=== PATIENT | female | born 1945 | race Caucasian/White ===

== ENCOUNTER 2017-06-11 08:13 | Emergency (ER) | payer OTHER, MEDICARE ==
[2017-06-11 08:24] VITALS: BMI 30.1
--- NOTE | 2017-06-11 08:54 | PDOC ---
History of Present Illness - General Chief Complaint: Injury Stated Complaint: FALL Time Seen by Provider: 06/11/17 08:32 History Source: Patient Exam Limitations: No Limitations - History of Present Illness Initial Comments: 06/11/17 08:49 The patient is a 72 year old female, with a significant past medical history of HTN, DM, and CAD s/p cardiac stent on plavix, who presents to the emergency department s/p Fall. Patient states she was walking in the dark and was not paying attention when she tripped over a box on her floor. Patient states she hit her head and fell on her right side. The patient denies headache, slurred speech, blurry vision, chest pain, shortness of breath, and dizziness. Denies fever, chills, nausea, vomit, diarrhea and constipation. Denies dysuria, frequency, urgency and hematuria. Denies any current pain Allergies: Anaesthetics Past surgical history: Left TKR, CAD stent placement Social history: Former smoker 20 years PMD - Dr. Hansen Past History - Past Medical History Allergies/Adverse Reactions: Allergies Allergy/AdvReac Type Severity Reaction Status Date / Time Anesthetics - Roxanna Type- Allergy Verified 06/11/17 08:18 Parabens No Known Drug Allergies Allergy Verified 06/11/17 08:16 Home Medications: Ambulatory Orders Aspirin Coated [Ecotrin -] 81 mg PO DAILY 03/24/14 Calcium 500 mg PO DAILY 03/24/14 Clopidogrel Bisulfate [Plavix -] 75 mg PO DAILY 03/24/14 Cranberry Extract [Cranberry] 200 mg PO DAILY 03/24/14 Ferrous Sulfate [Feosol] 325 mg PO BID 03/24/14 Folic Acid/Multivit-Min/Lutein [Centrum Silver Chewable Tablet] 1 each PO DAILY 03/24/14 Metoprolol Tartrate [Lopressor -] 25 mg PO BID 03/24/14 [place]-3 Fatty Acids [[place]-3] 1,000 mg PO DAILY 03/24/14 Pravastatin Sodium 20 mg PO HS 03/24/14 Vitamin E Mixed [Vitamin E] 1,000 unit PO DAILY 03/24/14 Lansoprazole [Prevacid -] 20 mg PO DAILY 08/30/14 Sitagliptin Phos/Metformin HCl [Janumet 50-500 mg Tablet] 1 tab PO BID 08/30/14 Cholecalciferol (Vitamin D3) [Vitamin D3] 1,000 unit PO DAILY 10/10/15 Cyanocobalamin [Vitamin B12 -] 1,000 mcg PO DAILY 10/10/15 Glucosamine HCl/Chondr Solano A Na [Osteo Bi-Flex Caplet] 1 each PO DAILY 10/10/15 Timolol 0.5% [Timoptic 0.5%] 1 drop OU BID 02/14/16 Olmesartan Medoxomil [Benicar -] 40 mg PO DAILY #30 tablet 02/25/16 Sodium Chloride Tablet - 1 gm PO BID tablet 02/25/16 Anemia: Yes Asthma: No Cancer: No Cardiac Disorders: Yes (CAD) CVA: No COPD: No CHF: No Dementia: No Diabetes: Yes GI Disorders: Yes (ACID REFLUX) Disorders: No HTN: Yes Hypercholesterolemia: No Liver Disease: No Seizures: No Thyroid Disease: No - Surgical History Abdominal Surgery: No Appendectomy: No Cardiac Surgery: Yes (stent x1) Cholecystectomy: No Lung Surgery: No Neurologic Surgery: No Orthopedic Surgery: Yes (L KNEE ARTHROSCOPY,L KNEE REPLAC.,BILAT. RTC REPAIR) - Immunization History Immunization Up to Date: Yes - Suicide/Smoking/Psychosocial Hx Smoking History: Former smoker Have you smoked in the past 12 months: No If you are a former smoker, when did you quit?: 1993 Information on smoking cessation initiated: No Hx Alcohol Use: No Drug/Substance Use Hx: No Substance Use Type: None Hx Substance Use Treatment: No Review of Systems - Review of Systems Able to Perform ROS?: Yes Comments:: 06/11/17 08:49 GENERAL/CONSTITUTIONAL: No fever or chills. No weakness. HEAD, EYES, EARS, NOSE AND THROAT: No change in vision. No ear pain or discharge. No sore throat. CARDIOVASCULAR: No chest pain or shortness of breath RESPIRATORY: No cough, wheezing, or hemoptysis. GASTROINTESTINAL: No nausea, vomiting, diarrhea or constipation. GENITOURINARY: No dysuria, frequency, or change in urination. MUSCULOSKELETAL: No joint or muscle swelling or pain. No neck or back pain. SKIN: No rash NEUROLOGIC: No headache, vertigo, loss of consciousness, or change in strength/ sensation. ENDOCRINE: No increased thirst. No abnormal weight change HEMATOLOGIC/LYMPHATIC: No anemia, easy bleeding, or history of blood clots. ALLERGIC/IMMUNOLOGIC: No hives or skin allergy. *Physical Exam - Vital Signs Last Vital Signs Temp Pulse Resp BP Pulse Ox 98.2 F 79 15 118/81 99 06/11/17 08:19 06/11/17 08:19 06/11/17 08:19 06/11/17 08:19 06/11/17 08:19 - Physical Exam Comments: 06/11/17 08:49 GENERAL: Awake, alert, and fully oriented, in no acute distress HEAD: No signs of trauma, normocephalic, atraumatic EYES: PERRLA, EOMI, sclera anicteric, conjunctiva clear ENT: Auricles normal inspection, hearing grossly normal, nares patent, oropharynx clear without exudates. Moist mucosa NECK: Normal ROM, supple, no lymphadenopathy, JVD, or masses LUNGS: No distress, speaks full sentences, clear to auscultation bilaterally HEART: Regular rate and rhythm, normal S1 and S2, no murmurs, rubs or gallops, peripheral pulses normal and equal bilaterally. ABDOMEN: Soft, nontender, normoactive bowel sounds. No guarding, no rebound. No masses EXTREMITIES: Normal inspection, Normal range of motion, no edema. No clubbing or cyanosis. NEUROLOGICAL: Cranial nerves II through XII grossly intact. Normal speech, 5/5 strength, senstaion intact bilaterally, no focal sensorimotor deficits SKIN: Warm, Dry, normal turgor, no rashes or lesions noted. Medical Decision Making - Medical Decision Making 06/11/17 08:54 72 year old F with pmh of HTN, DM, and CAD s/p stent placement on plavix presented s/p fall. Given hx/pe, will order Head CT 06/11/17 09:[address] negative for any intracranial pathology. Patient stable for d/c *DC/Admit/Observation/Transfer Diagnosis at time of Disposition: Fall Qualifiers: Encounter type: initial encounter Qualified Code(s): W19.XXXA - Unspecified fall, initial encounter; W19.XXXA - Unspecified fall, initial encounter - Discharge Dispostion Disposition: HOME Condition at time of disposition: Stable - Patient Instructions Additional Instructions: Follow up with your primary care provider within 1 week. If you have worsening headache, slurred speech, blurred vision, chest pain, shortness of breath, or any new/worsening symptoms please come back to the hospital immediately.
--- NOTE | 2017-06-11 09:30 | PDOC ---
Attending Attestation - Resident Resident Name: Jesus Ellis - ED Attending Attestation I have performed the following: I have examined & evaluated the patient, The case was reviewed & discussed with the resident, I agree w/resident's findings & plan, Exceptions are as noted - HPI HPI: 06/11/17 09:34 72y F hx of HTN, DM, and CAD s/p cardiac stent on plavix presents s/p mechanical fall after tripping over a box, falling on her right side but htting her head on the ground w/o any headache, blurry vision, neck pain, n/v, dizziness. No syncope prodromes. pt denies any current pain - Physicial Exam PE: 06/11/17 09:35 GENERAL: The patient is awake, alert, and fully oriented, Nontoxic - in no acute distress. HEAD: Normocephalic, atraumatic. EYES: extraocular movements intact, sclera anicteric, conjunctiva clear. NECK: Normal range of motion, supple LUNGS: Breath sounds equal, clear to auscultation bilaterally. No wheezes, no rhonchi, no rales. HEART: Regular rate and rhythm, normal S1 and S2 without murmur, rub or gallop. ABDOMEN: Soft, nontender, normoactive bowel sounds. No guarding, no rebound. No CVA tenderness EXTREMITIES: Normal range of motion, no edema. No clubbing or cyanosis. No cords, erythema, or tenderness. NEUROLOGICAL: No facial assymetry, Normal speech, moving all 4 extermities spontaneously and symmetrically Back: No midline tenderness to the cervical, thoracic or lumbar spine Musculoskelatal: FROM of b/l shoulders, elbows, wrist. FROM of hips, knees, ankles - No signs of ecchymosis, erythema, or crepitus noted on palpation extremities, chest wall, clavicals, ribs, back. - Medical Decision Making 06/11/17 10:03 s/p mechanical fall. no focal injureis, limitations in ROM, loc, prodrome of syncope CT obtained due to being on plavix - neg for any pathology tylenol for pain will dc with pmd fu return precautions were discussed I discussed the physical exam findings, ancillary test results and final diagnoses with the patient. I answered all of the patient's questions. The patient was satisfied with the care received and felt comfortable with the discharge plan and treatment plan. The patient will call their primary care physician within 24 hours to arrange follow-up and will return to the Emergency Department with any new, persistent or worsening symptoms.
[2017-06-11] MEDS ORDERED: ACETAMINOPHEN 325 MG TABLET (FP) PO ONE (10:00)
[2017-06-11] MEDS ORDERED: ACETAMINOPHEN 325 MG TABLET (FP) ONE (10:05)
[2017-06-11 10:16] VITALS: BP 135/75; PULSE 71; TEMP 98.1
== END 2017-06-11 10:18 | disposition home or self-care (01) ==
LOC: JER 08:13
DX: Z91.81 History of falling (principal); I10 Essential (primary) hypertension; I25.10 Atherosclerotic heart disease of native coronary artery without angina pectoris; E11.9 Type 2 diabetes mellitus without complications; Z95.5 Presence of coronary angioplasty implant and graft; Z79.01 Long term (current) use of anticoagulants; Z88.4 Allergy status to anesthetic agent; Z79.82 Long term (current) use of aspirin; Z79.84 Long term (current) use of oral hypoglycemic drugs; D64.9 Anemia, unspecified; K21.9 Gastro-esophageal reflux disease without esophagitis; Z96.653 Presence of artificial knee joint, bilateral; W01.10XA Fall on same level from slipping, tripping and stumbling with subsequent striking against unspecified object, initial encounter; Y93.01 Activity, walking, marching and hiking; Y92.009 Unspecified place in unspecified non-institutional (private) residence as the place of occurrence of the external cause
CPT/HCPCS: 70450-TC; 99282-25

== ENCOUNTER 2017-11-08 19:07 | Emergency (ER) | payer OTHER, MEDICARE ==
[2017-11-08 19:34] VITALS: BP 145/79; PULSE 78; TEMP 98.2; BMI 29.9
--- NOTE | 2017-11-08 20:51 | PDOC ---
History of Present Illness - General Chief Complaint: Headache Stated Complaint: HEADACHE Time Seen by Provider: 11/08/17 20:18 - History of Present Illness Initial Comments: 11/08/17 20:42 72 yo F with h/o HTN, NIDDM, CAD s/p stent placement x 1, on plavix who presents with left sided posterior headache. Patient reports intermittent, pulsating left sided parietal occipital headache over the past 3-5 days. WHITTINGTON lasting for hours then resolving randomly throughout day. Denies identifiable triggers or alleviators. Denies head trauma. Denies aura, photophobia, phonophobia, scintillating sctotomas. WHITTINGTON not improved with Tylenol. Reports left sided aural fullness x 1 week, with no drainage, tinnitus, hearing loss, facial sensory loss. Daughter at bedside reports h/o falls from bed with previous closed head injuries. Pt. does not recall falling from bed. Denies lightheadedness, vertigo, weakness, sensory disturbance, facial droop, slurred speech. Denies CP, SOB, N/V, F/C, abdominal pain, urinary complaints, diarrhea, constipation. Denies h/o TIA/CVA. Past History - Past Medical History Allergies/Adverse Reactions: Allergies Allergy/AdvReac Type Severity Reaction Status Date / Time Anesthetics - Roxanna Type- Allergy Verified 11/08/17 19:28 Parabens No Known Drug Allergies Allergy Verified 11/08/17 19:28 Home Medications: Ambulatory Orders Aspirin Coated [Ecotrin -] 81 mg PO DAILY 03/24/14 Calcium 500 mg PO DAILY 03/24/14 Clopidogrel Bisulfate [Plavix -] 75 mg PO DAILY 03/24/14 Cranberry Extract [Cranberry] 200 mg PO DAILY 03/24/14 Ferrous Sulfate [Feosol] 325 mg PO BID 03/24/14 Folic Acid/Multivit-Min/Lutein [Centrum Silver Chewable Tablet] 1 each PO DAILY 03/24/14 Metoprolol Tartrate [Lopressor -] 25 mg PO BID 03/24/14 [place]-3 Fatty Acids [[place]-3] 1,000 mg PO DAILY 03/24/14 Pravastatin Sodium 20 mg PO HS 03/24/14 Vitamin E Mixed [Vitamin E] 1,000 unit PO DAILY 03/24/14 Lansoprazole [Prevacid -] 20 mg PO DAILY 08/30/14 Sitagliptin Phos/Metformin HCl [Janumet 50-500 mg Tablet] 1 tab PO BID 08/30/14 Cholecalciferol (Vitamin D3) [Vitamin D3] 1,000 unit PO DAILY 10/10/15 Cyanocobalamin [Vitamin B12 -] 1,000 mcg PO DAILY 10/10/15 Glucosamine/Chondr Solano A Sod [Osteo Bi-Flex Caplet] 1 each PO DAILY 10/10/15 Timolol 0.5% [Timoptic 0.5%] 1 drop OU BID 02/14/16 Olmesartan Medoxomil [Benicar -] 40 mg PO DAILY #30 tablet 02/25/16 Sodium Chloride Tablet - 1 gm PO BID tablet 02/25/16 Anemia: Yes Asthma: No Cancer: No Cardiac Disorders: Yes (CAD) CVA: No COPD: No CHF: No Dementia: No Diabetes: Yes GI Disorders: Yes (ACID REFLUX) Disorders: No HTN: Yes Hypercholesterolemia: No Liver Disease: No Seizures: No Thyroid Disease: No - Surgical History Abdominal Surgery: No Appendectomy: No Cardiac Surgery: Yes (stent x1) Cholecystectomy: No Lung Surgery: No Neurologic Surgery: No Orthopedic Surgery: Yes (L KNEE ARTHROSCOPY,L KNEE REPLAC.,BILAT. RTC REPAIR) - Immunization History Immunization Up to Date: Yes - Suicide/Smoking/Psychosocial Hx Smoking History: Never smoked Have you smoked in the past 12 months: No If you are a former smoker, when did you quit?: 1993 Information on smoking cessation initiated: No Hx Alcohol Use: No Drug/Substance Use Hx: No Substance Use Type: None Hx Substance Use Treatment: No Review of Systems - Review of Systems Comments:: 11/08/17 20:40 GENERAL/CONSTITUTIONAL: No fever or chills. No weakness. HEAD, EYES, EARS, NOSE AND THROAT: + Ear pain. No change in vision. No discharge. No sore throat.- CARDIOVASCULAR: No chest pain or shortness of breath RESPIRATORY: No cough, wheezing, or hemoptysis. GASTROINTESTINAL: No nausea, vomiting, diarrhea or constipation. GENITOURINARY: No dysuria, frequency, or change in urination. MUSCULOSKELETAL: No joint or muscle swelling or pain. No neck or back pain. SKIN: No rash NEUROLOGIC: + headache. No vertigo, loss of consciousness, or change in strength /sensation. ENDOCRINE: No increased thirst. No abnormal weight change HEMATOLOGIC/LYMPHATIC: No anemia, easy bleeding, or history of blood clots. ALLERGIC/IMMUNOLOGIC: No hives or skin allergy. *Physical Exam - Vital Signs Last Vital Signs Temp Pulse Resp BP Pulse Ox 98.2 F 78 18 145/79 99 11/08/17 19:30 11/08/17 19:30 11/08/17 19:30 11/08/17 19:30 11/08/17 19:30 - Physical Exam Comments: 11/08/17 20:40 GENERAL: Awake, alert, and fully oriented, in no acute distress HEAD: Left sided parietal occipital pain slighlty reproducible /ttp. No signs of trauma, normocephalic, atraumatic EYES: PERRLA, EOMI, sclera anicteric, conjunctiva clear ENT: Auricles normal inspection, hearing grossly normal, nares patent, oropharynx clear without exudates. Moist mucosa NECK: Normal ROM, supple, no lymphadenopathy, JVD, or masses LUNGS: No distress, speaks full sentences, clear to auscultation bilaterally HEART: Regular rate and rhythm, normal S1 and S2, no murmurs, rubs or gallops, peripheral pulses normal and equal bilaterally. EXTREMITIES : Normal inspection, Normal range of motion, no edema. No clubbing or cyanosis. NEUROLOGICAL: Cranial nerves II through XII grossly intact. Normal speech, normal gait, no focal sensorimotor deficits. Nml NEDA, HTS, and absent dsymetria on FTN. SKIN: Warm, Dry, normal turgor, no rashes or lesions noted Medical Decision Making - Medical Decision Making 11/08/17 21:23 72 yo F with h/o HTN, NIDDM, CAD s/p stent placement x 1, on plavix who presents with lintermittent, pulsating left sided parietal occipital headache over the past 3-5 days. WHITTINGTON lasting for hours then resolving randomly throughout day. Denies identifiable triggers or alleviators. Denies head trauma, neck, or back pain. Denies aura, photophobia, phonophobia, scintillating sctotomas. WHITTINGTON not improved with Tylenol. Reports left sided aural fullness x 1 week, with no drainage, tinnitus, hearing loss, facial sensory loss. Daughter at bedside reports h/o falls from bed with previous closed head injuries. Pt. does not recall falling from bed. Denies lightheadedness, vertigo, weakness, sensory disturbance, facial droop, slurred speech. Denies CP, SOB, N/V, F/C, abdominal pain, urinary complaints, diarrhea, constipation. Denies h/o TIA/CVA. HDS. Physical exam with reproducible left sided pareito-occipital ttp, with no bony abnormality or overlying skin change. Absent mastoid ttp. Although low suspicion based on absent neuro deficit will consider head imaging in elderly F on Plavix, with h/o falls, and possible focal head injury. Nexus criteria low risk C-spine injury. Will also consider malignancy for new onset WHITTINGTON over age 50. DDx: Migraine w/out aura, tension WHITT[place], Skull frx ED Course: CT HEAD NON CON 11/08/17 23:33 CT HEAD NON CON: NO acute fracture or hemorrhage. Unremarkable Pt. stable at bedside and advised to f/u with PMD, and neurology. 11/08/17 23:35 *DC/Admit/Observation/Transfer Diagnosis at time of Disposition: New onset of headaches after age 50 - Discharge Dispostion Condition at time of disposition: Stable Admit: No - Referrals Referrals: Bobby Hansen MD [Primary Care Provider] - Teddy Yates MD [Staff Physician] - - Patient Instructions Printed Discharge Instructions: DI for Migraine, DI for Headache Additional Instructions: Please return to the emergency department with any new or worsening symptoms or concerns. Please follow up with your primary care physician within 72 hours. - Post Discharge Activity - Attestations Physician Attestion: 11/08/17 20:41 I attest to the information provided in this note.
--- NOTE | 2017-11-08 23:48 | PDOC ---
Attending Attestation - Resident Resident Name: Curtis Chandler - ED Attending Attestation I have performed the following: I have examined & evaluated the patient, The case was reviewed & discussed with the resident, I agree w/resident's findings & plan, Exceptions are as noted - HPI HPI: 11/08/17 23:46 72 yo female who presents with parietal headache. she denies falling but her family states she falls often and is on plavix and they are concerned maybe she doesnt remember recent trauma -pt is alert and has no acute neuro changes - Physicial Exam PE: 11/08/17 23:59 Well-nourished well-developed alert and conversant 72-year-old female who presented with a left posterior headache. -she cannot take NSAIDs because she's been told that she should not since she is taking Plavix. -the only medicine she took this headache was Tylenol 500 mg Patient does not have any new focal neural deficits, no slurred speech, no visual changes, no nausea or vomiting 11/09/17 00:01 Head normocephalic/atraumatic. eyes julio eomi neck supple,no jvd lungs cta b/l abd nontender ext no e/c/c skin no petchia,no rashes neuro axox3,ambulatory,motor strength 5/5 bilaterally - Medical Decision Making 11/09/17 00:28 ct scan head was NEGATIVE for any acute intracranial pathology IMP headache no evidence of stroke or trauma
== END 2017-11-09 00:31 | disposition home or self-care (01) ==
LOC: JER 19:07
DX: R51 Headache (principal); I25.10 Atherosclerotic heart disease of native coronary artery without angina pectoris; I10 Essential (primary) hypertension; Z95.5 Presence of coronary angioplasty implant and graft; E11.9 Type 2 diabetes mellitus without complications; Z79.84 Long term (current) use of oral hypoglycemic drugs; Z91.81 History of falling
CPT/HCPCS: 70450-TC; 99281-25

== ENCOUNTER 2017-12-31 06:04 | Day surgery (SDC) | payer OTHER, MEDICARE ==
[2017-12-30 11:58] VITALS: BMI 30.2
[2017-12-31 06:43] LABS: URINE APPEARANCE CLEAR; URINE BILIRUBIN NEGATIVE (<2.0 mg/dL); URINE COLOR LTYELLOW; URINE GLUCOSE (UA) NEGATIVE (NEGATIVE); URINE KETONE NEGATIVE (NEGATIVE); URINE NITRITE NEGATIVE (NEGATIVE); URINE PROTEIN NEGATIVE (NEGATIVE); URINE UROBILINOGEN NEGATIVE mg/dL (0.2-1.0)
[2017-12-31 07:11] LABS: URINE LEUK ESTERASE 1+ (NEGATIVE)
[2017-12-31 07:24] LABS: EPI CELLS RARE /HPF (FEW)
--- NOTE | 2017-12-31 08:01 | HP ---
[facility] - Chief Complaint Chief Complaint: left shoulder pain - Past Medical History Allergies/Adverse Reactions: Allergies Allergy/AdvReac Type Severity Reaction Status Date / Time Anesthetics - Roxanna Type- Allergy Verified 12/31/17 06:51 Parabens No Known Drug Allergies Allergy Verified 12/31/17 06:51 Cardiovascular: Yes: CAD, CHF, HTN, Hyperlipdemia Gastrointestinal: Yes: Gastritis Musculoskeletal: Yes: Chronic low back pain - Current Medications Current Medications: Home Medications Medication Instructions Recorded Aspirin Coated [Ecotrin -] 81 mg PO DAILY 03/24/14 Calcium 500 mg PO DAILY 03/24/14 Clopidogrel Bisulfate [Plavix -] 75 mg PO DAILY 03/24/14 Cranberry Extract [Cranberry] 200 mg PO DAILY 03/24/14 Ferrous Sulfate [Feosol] 325 mg PO BID 03/24/14 Folic Acid/Multivit-Min/Lutein 1 each PO DAILY 03/24/14 [Centrum Silver Chewable Tablet] Metoprolol Tartrate [Lopressor -] 25 mg PO BID 03/24/14 Leon-3 Fatty Acids [Leon-3] 1,000 mg PO DAILY 03/24/14 Pravastatin Sodium 20 mg PO HS 03/24/14 Vitamin E Mixed [Vitamin E] 1,000 unit PO DAILY 03/24/14 Sitagliptin Phos/Metformin HCl 1 tab PO BID 08/30/14 [Janumet 50-500 mg Tablet] Cholecalciferol (Vitamin D3) 1,000 unit PO DAILY 10/10/15 [Vitamin D3] Cyanocobalamin [Vitamin B12 -] 1,000 mcg PO DAILY 10/10/15 Glucosamine/Chondr Solano A Sod [Osteo 1 each PO DAILY 10/10/15 Bi-Flex Caplet] Timolol 0.5% [Timoptic 0.5%] 1 drop OU BID 02/14/16 Olmesartan Medoxomil [Benicar -] 40 mg PO DAILY #30 tablet 02/25/16 Dexlansoprazole [Dexilant -] 1 tab PO DAILY 12/30/17 Fenofibrate Nanocrystallized 160 mg PO DAILY 12/30/17 [Triglide] Satellite Physical Exam - Physical Examination Vital Signs: Vital Signs Period Temp Pulse Resp BP Sys/Song Pulse Ox Last 24 Hr 98.3 F 65 18 112/66 95 General Appearance: Well Nourished, Well Developed, Alert & Oriented x3 ENT: Clear Lung: Normal air movement Heart: Regular rate & rhythm Extremities: Other (left shoulder- + ttp, decr rom, + neer, + baires, 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
[2017-12-31] MEDS ORDERED: DEXAMETHASONE SOD PHOSPHATE/PF 10 MG/ML SDV ONE (08:22)
[2017-12-31] MEDS ORDERED: ROPIVACAINE HCL 0.5% 30ML VIAL ONE (08:22)
[2017-12-31] MEDS ORDERED: MIDAZOLAM HCL 2 MG/2 ML SINGLE DOSE VIAL ONE ×2 (08:24)
[2017-12-31] MEDS ORDERED: PROPOFOL 20 ML ONE (08:43)
[2017-12-31] MEDS ORDERED: ROCURONIUM BROMIDE 50 MG/5 ML VIAL ONE (08:43)
[2017-12-31] MEDS ORDERED: LIDOCAINE HCL/PF 2% SDV 5ML VIAL ONE (08:43)
[2017-12-31] MEDS ORDERED: ceFAZolin SODIUM 1 GM VIAL IVPB ONE (08:55)
[2017-12-31] MEDS ORDERED: ceFAZolin SODIUM 1 GM VIAL ONE (08:55)
[2017-12-31] MEDS ORDERED: ePHEDrine SULFATE 50 MG/1 ML AMPULE ONE (08:59)
[2017-12-31] MEDS ORDERED: DEXAMETHASONE SOD PHOSPHATE 4 MG/1 ML VIAL ONE ×2 (09:00→10:22)
--- NOTE | 2017-12-31 10:35 | OP ---
Operative Note - Note: Operative Date: 12/31/17 ([facility]) Pre-Operative Diagnosis: left shoulder impingement, failed RCR Operation: left shoulder arthroscopy, removal of hardware (screw), SAD, open RCR Implants: 1 arthrex swivelock Post-Operative Diagnosis: Same as Pre-op Surgeon: Brijesh Husain Chief Radiology: Medhat Pitts Anesthesiologist/TRAFFIC MONITOR SPECIALIST: Donn Marquis Anesthesia: General, Local Specimens Removed: shavings, screw Estimated Blood Loss (mls): 10 Operative Report Dictated: Yes
--- NOTE | 2017-12-31 11:28 | OP ---
DATE OF OPERATION: 12/31/2017 PREOPERATIVE DIAGNOSIS: Left shoulder failed hardware and recurrent rotator cuff tear. POSTOPERATIVE DIAGNOSIS: Left shoulder failed hardware and recurrent rotator cuff tear. PROCEDURE: Left shoulder arthroscopy, subacromial decompression, removal of hardware, and open rotator cuff repair. SURGEON: Harish Muhammad MD CONSULTING NURSE: BELA Fischer ANESTHESIOLOGIST: Donn Marquis MD ANESTHESIA: Left interscalene block and LMA anesthesia. DRAINS: None. COMPLICATIONS: None. BLOOD LOSS: 75 mL. BLOOD GIVEN: None. FLUID REPLACEMENT: Plamylyte, 1000 mL. DESCRIPTION OF PROCEDURE: The patient is a 72-year-old female with a preoperative diagnosis of left shoulder pain, arthritis, and rotator cuff tear, previous surgery for decompression of rotator cuff repair, and failed hardware/rotator cuff fixation screw. After extensive preoperative discussions about the potential risks, complications, alternatives, benefits of surgery versus nonsurgical treatment, the patient elected to undergo this procedure. She understands that she will have continued pain because of the osteoarthritis. She may need a total shoulder replacement at some point as rotator cuff quality may be poor and the tear may be unrepairable. The patient was brought to the operating room, peripheral IV placed, and IV sedation given. One gram of IV Ancef was given. Left interscalene block was performed. LMA anesthesia was induced. The left upper extremity was prepped and draped in sterile fashion. The bony landmarks were marked out with a marking pen. Posterior portal was established. A diagnostic glenohumeral arthroscopy was performed. Immediately it was apparent the patient had grade 4 osteoarthritis of both the humeral head and the glenoid. The labrum was degenerated. It was clearly a full-thickness rotator cuff tear. There was a metallic screw, a previous rotator cuff repair screw, that pulled out of the humeral head. There was a lot of synovitis. An anterior portal was established. Shaver introduced into the joint. A lot of soft tissue and cartilaginous debris was removed as well as a partial synovectomy. The area was cauterized for hemostasis. This revealed a very arthritic glenohumeral joint, a relatively small recurrent rotator cuff tear, perhaps the size of a quarter, and this loose screw. Under direct visualization, we grabbed the screw, pulled it out through the lateral portal, passed it off the field as specimen, hardware removal. The joint was cleaned up as much as possible. Our attention was then turned to the subacromial space. The patient had a moderate-sized recurrent bony subacromial spur. This was taken down with a 5.5-mm oval kiersten, fine-tuned in reverse, and then, with the shaver to remove bony and soft tissue debris. Decompression looked quite good and flat at the end. There was much more room for the rotator cuff. The patient had scar tissue and bursitis, which was removed after an extensive soft tissue bursectomy debridement with the ArthroCare Wand and straight shaver. This revealed the hole where the previous metallic screw was, and the rotator cuff tear. The area was cauterized, a bit cleaned up. Additional lateral subdeltoid bursectomy performed. Under direct visualization, using the Emotiveion Needle Passer, we put in 2 FiberWire sutures through the rotator cuff tear. I was not completely sure that I had a full understanding of the extent of the rotator cuff tear. Therefore, I abandoned the arthroscopic approach and did a mini-open approach. The lateral portal was only extended approximately 1 inch distal and 0.5 inch proximal. Subcutaneous hemostasis was achieved with the Bovie cautery. Dissection done down longitudinally through the lateral head of the deltoid. The Gelpi retractor and soren-retractor were placed into the wound. I could see the rotator cuff tear. Additional bursectomy was performed. Some scar tissue was removed. The edges were debrided, and it was ready for repair. It was only slightly larger than what had been appreciated arthroscopically. The overall condition and quality of the rotator cuff tissue was not good. That being said, what was there was covering the rest of the humeral head. I then fed 4 FiberWire tails through the Arthrex SwiveLock anchor and brought it down much more distal into the lateral cortex of the proximal humerus to get better fixation as the previous attempted fixation in the humeral head did not feel good at all. That was one reason we abandoned the arthroscopic approach. It came down quite nicely. We got a nice squeak and I felt the fixation here was much better. The tails were cut. The rotator cuff moved as a unit with the humerus. I then was able to do additional open rotator cuff repair using 0 Vicryl sutures doing a [id number] rotator cuff repair and advanced over-pants technique reinforcing the Arthrex SwiveLock screw. I think this rotator cuff repair over the sutures and SwiveLock anchor will be very helpful in preventing this one from backing out as the previous rotator cuff repair metallic screw did back out. The area was copiously irrigated and washed out. I was looking directly at the rotator cuff. It moved as a unit with motion of the humerus. I overall was happy with the quality of the repair, but as mentioned, the patient has a very arthritic joint, and the quality of the rotator cuff is not great. Closure was done on the anterior and posterior portals with 3-0 nylon sutures. The deltoid was closed with a 0 Vicryl. Deep dermal layer closed with 2-0 Vicryl. Final skin reapproximation was done with a running subcuticular 3-0 V-Loc suture. The area was then washed and dried, covered with Aquacel dressing. The patient was placed into a shoulder immobilizer. Total operative repair was about 1 hour. She was extubated. There were no complications during the case. Blood loss was 75 mL. She was brought to the ambulatory recovery room in stable condition. HARISH MUHAMMAD M.D. [id number]
[2017-12-31] MEDS ORDERED: ONDANSETRON 4 MG/2 ML VIAL IVPUSH PRN (11:54)
[2017-12-31] MEDS ORDERED: LACTATED RINGERS SOLUTION 1,000 ML IV SCH (12:00)
[2017-12-31] MEDS ORDERED: oxyCODONE HCL 5 MG TABLET PO PRN (12:08)
[2017-12-31 12:51] VITALS: TEMP 97.4
[2017-12-31 14:54] VITALS: BP 127/66; PULSE 87
--- NOTE | 2018-01-01 16:29 | PATH ---
Surgical Pathology Report Patient Name: MICHELINE BATEMAN Med. Rec. #: [id number] /Age/Gender: 1945 (Age: 72) / F Account: [id number] Location: [facility] SURGICAL Taken: 12/30/2017 Received: 12/31/2017 Reported: 01/01/2018 Physicians: Brijesh Husain M.D. Specimen(s) Received A: REMOVED HARDWARE B: LEFT SHOULDER SHAVINGS Clinical History Left shoulder impingement syndrome Final Diagnosis A. HARDWARE, REMOVAL: SURGICAL HARDWARE, MACROSCOPIC DIAGNOSIS. B. SHOULDER SHAVINGS, LEFT, ARTHROSCOPY AND ROTATOR CUFF REPAIR: FRAGMENTS OF BENIGN CARTILAGE, DENSE FIBROCONNECTIVE TISSUE, ADIPOSE TISSUE, AND SKELETAL MUSCLE. Electronically Signed Мария Dick M.D. Gross Description A. Received fresh labeled "removed hardware," is a 1.4 cm in length quinonez metallic screw. No soft tissue is present. No sections are submitted, gross only. B. Received in formalin, labeled "left shoulder shavings," is a 4.5 x 4.5 x 0.8 cm. aggregate of holloway-yellow soft tissue fragments. A service liaison representative portion is submitted in one cassette. 12/31/201712/31/2017
== END 2017-12-31 14:55 | disposition home or self-care (01) ==
LOC: JASU-SURG 06:04
PROVIDERS: ATTEND Orthopaedic Surgery
PROC: 0RPK44Z Removal of Internal Fixation Device from Left Shoulder Joint, Percutaneous Endoscopic Approach (ICD-10-PCS; 2017-12-31)
PROC: 0LQ20ZZ Repair Left Shoulder Tendon, Open Approach (ICD-10-PCS; 2017-12-31)
PROC: 0RBK4ZZ Excision of Left Shoulder Joint, Percutaneous Endoscopic Approach (ICD-10-PCS; principal; 2017-12-31 08:00)
PROC: 0RCK4ZZ Extirpation of Matter from Left Shoulder Joint, Percutaneous Endoscopic Approach (ICD-10-PCS; 2017-12-31 08:00)
DX: T84.89XA Other specified complication of internal orthopedic prosthetic devices, implants and grafts, initial encounter (principal); M75.102 Unspecified rotator cuff tear or rupture of left shoulder, not specified as traumatic; D64.9 Anemia, unspecified; I10 Essential (primary) hypertension; E11.9 Type 2 diabetes mellitus without complications
CPT/HCPCS: 81003; 81015; 82962; 88300-TC; 88304-TC; 94760

== ENCOUNTER 2018-02-17 05:57 | Inpatient (IN) | payer OTHER, MEDICARE ==
--- NOTE | 2018-02-17 10:24 | HP ---
Satellite [facility] - Chief Complaint Chief Complaint: left shoulder pain/infection - Past Medical History Allergies/Adverse Reactions: Allergies Allergy/AdvReac Type Severity Reaction Status Date / Time Anesthetics - Roxanna Type- Allergy "deathly Verified 02/16/18 17:18 Parabens sick-vomitting" No Known Drug Allergies Allergy Verified 02/16/18 17:18 Cardiovascular: Yes: CAD, CHF, HTN, Hyperlipdemia Gastrointestinal: Yes: Gastritis Musculoskeletal: Yes: Chronic low back pain - Current Medications Current Medications: Home Medications Medication Instructions Recorded Aspirin Coated [Ecotrin -] 81 mg PO DAILY 03/24/14 Calcium 500 mg PO DAILY 03/24/14 Clopidogrel Bisulfate [Plavix -] 75 mg PO DAILY 03/24/14 Cranberry Extract [Cranberry] 200 mg PO DAILY 03/24/14 Ferrous Sulfate [Feosol] 325 mg PO BID 03/24/14 Folic Acid/Multivit-Min/Lutein 1 each PO DAILY 03/24/14 [Centrum Silver Chewable Tablet] Metoprolol Tartrate [Lopressor -] 25 mg PO BID 03/24/14 Orosi-3 Fatty Acids [Orosi-3] 1,000 mg PO DAILY 03/24/14 Pravastatin Sodium 20 mg PO HS 03/24/14 Vitamin E Mixed [Vitamin E] 1,000 unit PO DAILY 03/24/14 Sitagliptin Phos/Metformin HCl 1 tab PO BID 08/30/14 [Janumet 50-500 mg Tablet] Cholecalciferol (Vitamin D3) 1,000 unit PO DAILY 10/10/15 [Vitamin D3] Cyanocobalamin [Vitamin B12 -] 1,000 mcg PO DAILY 10/10/15 Glucosamine/Chondr Solano A Sod [Osteo 1 each PO DAILY 10/10/15 Bi-Flex Caplet] Timolol 0.5% [Timoptic 0.5%] 1 drop OU BID 02/14/16 Olmesartan Medoxomil [Benicar -] 40 mg PO DAILY #30 tablet 02/25/16 Dexlansoprazole [Dexilant -] 1 tab PO DAILY 12/30/17 Fenofibrate Nanocrystallized 160 mg PO DAILY 12/30/17 [Triglide] Satellite Physical Exam - Physical Examination General Appearance: Well Nourished, Well Developed, Alert & Oriented x3 ENT: Clear Lung: Normal air movement Heart: Regular rate & rhythm Extremities: Other (left shoulder- + erythema, + drainage, + ttp, decr rom, nvi) Neurological: Intact, Alert, Oriented Satellite Impression/Plan - Impression/Plan Impression: left shoulder infection s/p RCR Operative Procedure: left shoulder arthroscopy with washout, PICC line Date to be Performed: 02/17/18
--- NOTE | 2018-02-17 14:21 | PN ---
Progress Note (short form) - Note Progress Note: ID Consult dictated R shoulder infection + wound c/s MRSA For shoulder washout Start Vancomycin 1gm IVPB q12h
[2018-02-17] MEDS ORDERED: VANCOMYCIN 1 GM PREMIX - 1 GM/200 ML BAG IVPB SCH (14:30)
[2018-02-17] MEDS ORDERED: PROPOFOL 20 ML ONE (14:53)
[2018-02-17] MEDS ORDERED: SUCCINYLCHOLINE CHLORIDE 200 MG/10 ML VIAL ONE ×4 (14:53→14:55)
--- NOTE | 2018-02-17 15:27 | OP ---
Operative Note - Note: Operative Date: 02/17/18 (cox monett) Pre-Operative Diagnosis: left shoulder infection s/p RCR Operation: left shoulder open I & D Post-Operative Diagnosis: Same as Pre-op Surgeon: Brijesh Husain Interventional Nurse: Medhat Pitts Anesthesiologist/TRAINING AND DEVELOPMENT OFFICER: Kenneth Muir Anesthesia: General Specimens Removed: cultures Estimated Blood Loss (mls): 10 Operative Report Dictated: Yes
--- NOTE | 2018-02-17 15:33 | CONS ---
DATE OF CONSULTATION: 02/17/2018 The patient is a 72-year-old female, who is evaluated for septic arthritis of the left shoulder. The patient reports a long history of left shoulder pain. She had undergone arthroscopy in the past, with repair of rotator cuff. She had indwelling hardware. According to the daughter, one of the screws had migrated. She was taken to the operating room on December 31, 2017, where a left shoulder arthroscopy and removal of hardware was performed. Postoperatively, her course was complicated by continuous drainage from the surgical site. The daughter reports there was a significant amount of yellowish serous fluid draining from the surgical incision. The patient reports taking Augmentin and Bactrim as an outpatient without significant improvement. Per my conversation with Dr. Husain this week, culture of the drainage fluid was positive for MRSA. She is now admitted for arthroscopy and washout of the left shoulder. There was reported erythema and drainage from the surgical incision as well as pain and decreased range of motion. She denies any associated fever or chills. Past medical history positive for coronary artery disease, hypertension, hyperlipidemia, congestive heart failure, chronic low-back pain. PAST SURGICAL HISTORY: Status post spinal fusion. No known allergies. MEDICATIONS: Aspirin, calcium, Plavix, Lopressor, pravastatin, Janumet. SOCIAL HISTORY: She lives at home with family members. Nonsmoker, nondrinker. SYSTEMS REVIEW: Neurologic: No loss of consciousness, seizure activity, or focal weakness. Cardiac: Negative chest pain or palpitations. Respiratory: Negative cough or sputum production. Gastrointestinal: Negative vomiting or diarrhea. Genitourinary: Negative for urinary tract infection. LABORATORY DATA: White count 12.6, hematocrit 25.2, platelets 588, BUN 7, creatinine 0.6. PHYSICAL EXAMINATION: General: The patient is awake and alert, in moderate distress secondary to left shoulder pain. Vital Signs: Temperature 98.7. Blood pressure 144/65. Pulse 81, regular. Respirations 20 per minute. Eyes: Sclerae anicteric. Heart Sounds: S1, S2. Lungs: Clear. Abdomen: Obese, soft, nontender. Extremities: Negative for edema. On examination of the left shoulder, there is swelling of the left shoulder area. A surgical incision is present. There is yellowish serous drainage noted on the dressing. No erythema noted. The area is tender to touch. IMPRESSION: 1. Infected left shoulder. 2. Positive aspirate culture for methicillin-resistant Staphylococcus aureus. Patient is for arthroscopy and washout in the OR today, obtain additional fluid for culture. Will ask lab to hold specimen for P. acnes, start vancomycin 1 g IV piggyback every 12 hours. Case discussed with the patient's daughter present at the time of examination. Thank you for the kind referral. BOB REYES M.D. [id number]
[2018-02-17] MEDS ORDERED: BACITRACIN 50,000 UNITS VIAL TP ONE (15:52)
[2018-02-17] MEDS ORDERED: PROMETHAZINE HCL 25 MG/1 ML VIAL IVPB PRN (16:08)
[2018-02-17] MEDS ORDERED: ONDANSETRON 4 MG/2 ML VIAL IVPUSH PRN (16:08)
[2018-02-17] MEDS: VANCOMYCIN 1 GM PREMIX - 1 GM/200 ML BAG IVPB SCH (17:00)
--- NOTE | 2018-02-17 17:19 | OP ---
DATE OF OPERATION: DATE OF DICTATION: 02/17/2018 PREOPERATIVE DIAGNOSIS: Left shoulder infection. POSTOPERATIVE DIAGNOSIS: Left shoulder infection. PROCEDURE: Left shoulder open incision and drainage. SURGEON: Harish Muhammad M.D. WEBSITE DEVELOPER: Edgar Fischer ANESTHESIA: LMA anesthesia ANESTHESIOLOGIST: Kenneth Muir M.D. DRAINS: One JEISON drain. COMPLICATIONS: None. BLOOD LOSS: 75 mL. BLOOD GIVEN: None. FLUID REPLACEMENT: 700 mL Plasmalyte. INDICATION: The patient is a 72-year-old female who is about 6 weeks status post left shoulder rotator cuff repair. She subsequently developed a postoperative infection. It was never severe infection. There was never any superficial cellulitis. There just was a slow, indolent, continuously draining wound. She is diabetic. We tried 2 rounds of oral antibiotics to no avail. She has MRSA. Preoperative discussions with infectious disease specialists, we decided to have her come into the hospital for PICC line placement. Dr. Girard put in a PICC line today to the right arm. DESCRIPTION OF PROCEDURE: Next, the patient was brought to the operating room, another peripheral IV was placed. No additional antibiotics were given. LMA anesthesia was induced. She was placed into the beach chair position with ample padding throughout. The left upper extremity was prepped and draped in sterile fashion. Two culture sticks were sent after expressing pus from the wound. There was not that much pus coming out, and I could not press out any more. That being said, I opened up the previous surgical incision. It did not just fall apart, in fact there was some good soft tissue healing. I used the Metzenbaum scissors to dissect deep to the deltoid, superficial to the previous rotator cuff repair. There was 1 old Fiberwire suture from the previous repair which was removed. I was able to do blunt dissection with my finger. There was a small amount of bleeding, perhaps 75 mL. I was not able to express much pus at all after extensive attempts at expression. I was able to irrigate the entire area with 1 L sterile saline and 50,000 units of bacitracin . Came back clear eventually, and again there was no significant pocket of pus, there was no big large open space. The previous rotator cuff repair looked good. Again, the area was irrigated and washed out, dried off. The deep deltoid fascia closed with 0 Vicryl sutures. The deep adipose layer closed with 0 Vicryl sutures. The more superficial wound closed with 2-0 Vicryl suture, and final skin reapproximation was done with horizontal mattress 3-0 nylon stitches. I did put in a JEISON drain underneath the deltoid fascia and sewed it into place with one 3-0 nylon suture. The area was then washed and dried, covered with Xeroform, 4x4, and Tegaderm so we could see through it and see if there is any drainage. The JEISON drain was activated. Total operative time was about 35 minutes. There were no complications during the case. The patient tolerated the procedure well, was brought to the regular recovery room in stable condition. The patient will be admitted. Dr. Marin will manage her postoperative antibiotic protocol. It may very well be 6 weeks of at home IV vancomycin. There were no complications during the case . The patient tolerated the procedure quite well. Overall it was not as bad as I was expecting. HARISH MUHAMMAD M.D. [id number]
[2018-02-17] MEDS: LACTATED RINGERS SOLUTION 1,000 ML IV SCH (18:00)
[2018-02-17] MEDS: oxyCODONE HCL 5 MG TABLET PO PRN (20:45)
[2018-02-17] MEDS ORDERED: PATIENT'S OWN MEDICATION (NON-FORMULARY) (Sitagliptin Phos/Metformin Hcl [Janumet 50-500 M PO SCH (22:00)
[2018-02-17] MEDS: METOPROLOL TARTRATE 25 MG TABLET (FP) PO SCH (22:27)
[2018-02-17] MEDS: FERROUS SO4 325 MG TABLET (FP) PO SCH (22:27)
[2018-02-17] MEDS: ATORVASTATIN CA 10 MG TABLET (FP) PO SCH (22:28)
[2018-02-17] MEDS: TIMOLOL 0.5% OPHTHALMIC SOL 5 ML BOTTLE OU SCH (22:28)
[2018-02-17] MEDS: INSULIN SLIDING SCALE (NOVOLOG) 1 VIAL SQ SCH (22:28)
[2018-02-18] MEDS: VANCOMYCIN 1 GM PREMIX - 1 GM/200 ML BAG IVPB SCH ×2 (05:33→16:48)
[2018-02-18] MEDS: INSULIN SLIDING SCALE (NOVOLOG) 1 VIAL SQ SCH ×4 (06:28→22:15)
[2018-02-18] MEDS: sitaGLIPtin PHOSPHATE 50 MG TABLET PO SCH ×2 (06:28→16:46)
[2018-02-18] MEDS: metFORMIN HCL 500 MG TABLET (FP) PO SCH ×2 (06:28→16:45)
[2018-02-18] MEDS: oxyCODONE HCL 5 MG TABLET PO PRN (07:00)
[2018-02-18] MEDS ORDERED: PT OWN MED DRAWER 7, Y5N ONE ×3 (10:24→21:23)
[2018-02-18] MEDS: VALSARTAN 160 MG TABLET (UD) PO SCH (10:30)
[2018-02-18] MEDS: METOPROLOL TARTRATE 25 MG TABLET (FP) PO SCH ×2 (10:30→22:05)
[2018-02-18] MEDS: PANTOPRAZOLE 40 MG TABLET (FP) PO SCH (10:30)
[2018-02-18] MEDS: ASPIRIN COATED 81 MG TABLET.EC PO SCH (10:30)
[2018-02-18] MEDS: CLOPIDOGREL BISULFATE 75 MG TABLET (FP) PO SCH (10:30)
[2018-02-18] MEDS: FERROUS SO4 325 MG TABLET (FP) PO SCH ×2 (10:30→22:05)
[2018-02-18] MEDS: FENOFIBRIC ACID 135 MG CAP PO SCH (10:31)
[2018-02-18] MEDS: TIMOLOL 0.5% OPHTHALMIC SOL 5 ML BOTTLE OU SCH ×2 (10:31→22:08)
--- NOTE | 2018-02-18 11:15 | PN ---
Progress Note (short form) - Note Progress Note: Ortho Pt seen and examined s/p left shoulder I &D pod #1 Selected Entries 02/18/18 05:49 Temperature 98.5 F Pulse Rate 83 Respiratory 19 Rate Blood Pressure 144/63 dressing saturated, drain with minimal bloody drainage, good rom of elbow nvi a/p Drain removed sterile pressure dressing applied abx as per ID ok to d/c today if ABX regimen has been set-up for home seen with Dr Kirk Husain
--- NOTE | 2018-02-18 11:21 | PN ---
Progress Note (short form) - Note Progress Note: Pt seen and examined. We discussed the surgical findings again. There was almost no pus, perhaps a few CCs. Still c/o pain in the left shoulder. She got a PICC line yesterday. AVSS CHENTE is NVI, good ROM at the elbow, forearm, wrist, fingers. Incision looks good. There is no drainage, no surrounding cellulitis, non tender. Drain with no drainage, so JEISON drain removed. Imp Overall she is doing very well s/p left shoulder I & D. Rec At home VNS and IV antibiotics (Vancomycin) as per ID, Dr Marin. I will see her as an out patient in 7 days.
--- NOTE | 2018-02-18 12:55 | PN ---
Progress Note, Physician History of Present Illness: POD# 1 I&D L shoulder No c/o pain No fever/ chills Cultures pending - Current Medication List Current Medications: Active Medications Aspirin (Ecotrin -) 81 mg PO DAILY [facility] Last Admin: 02/18/18 10:30 Dose: 81 mg Atorvastatin Calcium (Lipitor -) 10 mg PO HS [facility] Last Admin: 02/17/18 22:28 Dose: Not Given Clopidogrel Bisulfate (Plavix -) 75 mg PO DAILY [facility] Last Admin: 02/18/18 10:30 Dose: 75 mg Fenofibric Acid (Trilipix -) 135 mg PO DAILY [facility] Last Admin: 02/18/18 10:31 Dose: 135 mg Ferrous Sulfate (Feosol -) 325 mg PO BID [facility] Last Admin: 02/18/18 10:30 Dose: 325 mg Lactated Ringer's (Lactated Ringers Solution) 1,000 mls @ 75 mls/hr IV ASDIR [facility] Last Admin: 02/17/18 18:00 Dose: 0 mls Vancomycin HCl (Vancomycin 1 Gm Premix -) 1 gm in 200 mls @ 133.333 mls/hr IVPB Q12H [facility]; Protocol Last Admin: 02/18/18 05:33 Dose: 133.333 mls/hr Insulin Aspart (Novolog Vial Sliding Scale -) 1 vial SQ ACHS [facility]; Protocol Last Admin: 02/18/18 10:56 Dose: Not Given Metformin HCl (Glucophage -) 500 mg PO BID@0700,1630 [facility] Last Admin: 02/18/18 06:28 Dose: 500 mg Metoprolol Tartrate (Lopressor -) 25 mg PO BID [facility] Last Admin: 02/18/18 10:30 Dose: 25 mg Ondansetron HCl (Zofran Injection) 4 mg IVPUSH Q6H PRN PRN Reason: NAUSEA AND/OR VOMITING Oxycodone HCl (Roxicodone -) 5 mg PO Q4H PRN PRN Reason: PAIN LEVEL 1-5 Stop: 02/18/18 16:07 Last Admin: 02/18/18 07:00 Dose: 5 mg Pantoprazole Sodium (Protonix -) 40 mg PO DAILY [facility] Last Admin: 02/18/18 10:30 Dose: 40 mg Promethazine HCl (Phenergan Injection -) 12.5 mg IVPB Q6H PRN PRN Reason: NAUSEA-FOR RESCUE AFTER 15 MIN Sitagliptin Phosphate (Januvia -) 50 mg PO BID@0700,1630 [facility] Last Admin: 02/18/18 06:28 Dose: 50 mg Timolol Maleate (Timoptic 0.5%) 1 drop OU BID [facility] Last Admin: 02/18/18 10:31 Dose: 1 drp Valsartan (Diovan -) 320 mg PO DAILY [facility] Last Admin: 02/18/18 10:30 Dose: 320 mg - Objective Vital Signs: Vital Signs Temperature 98.5 F 02/18/18 05:49 Pulse Rate 83 02/18/18 05:49 Respiratory Rate 19 02/18/18 05:49 Blood Pressure 144/63 02/18/18 05:49 O2 Sat by Pulse Oximetry (%) 100 02/17/18 21:00 Constitutional: Yes: No Distress Eyes: Yes: Conjunctiva Clear Cardiovascular: Yes: Regular Rate and Rhythm, S1, S2 Respiratory: Yes: CTA Bilaterally Gastrointestinal: Yes: Normal Bowel Sounds, Soft. No: Tenderness Extremities: Yes: Other (L shoulder wound no erythema. Bloody drainage on dressing) Assessment/Plan POD # 1 I&D L shoulder Hx + wound c/s MRSA Continue Vancomycin Outpatient antibiotic regimen Vancomycin 1gm IVPB q12h x 4-6 weeks Monitor ESR/CRP weekly Will follow up in office
[2018-02-18] MEDS: LACTATED RINGERS SOLUTION 1,000 ML IV SCH (16:30)
[2018-02-18 19:49] VITALS: BMI 29.9
[2018-02-18] MEDS: ATORVASTATIN CA 10 MG TABLET (FP) PO SCH (22:05)
--- NOTE | 2018-02-18 23:14 | CONSULT ---
Consult - History of Present Illness History of Present Illness: Pt is a 72 y/o female w/ PMH significant for HTN, HLD, CHF, Anemia, GERD, chronic lower back pain and CAD. Pt had undergone arthroscopy of lt shoulder in 01/15 and now presented for I&D of lt shoulder wc was done on 02/17/18. However BC showed gram (+) cocci and pt had PIC line placement and has been on IV vanco. Pt also seen by ID consult. Pt has been afebrile w/ a normal WBC - Past Medical History Cardio/Vascular: Yes: CAD, CHF, HTN, Hyperlipdemia Gastrointestinal: Yes: Gastritis ...: No Psych: Yes: Anxiety Musculoskeletal: Yes: Chronic low back pain - Past Surgical History Past Surgical History: Yes: Cataract Removal, Joint Replacement (knee), Stent ( coronary; ureteral) Additional Surgical History: Lt shoulder arthroscopy - Alcohol/Substance Use Hx Alcohol Use: No - Smoking History Smoking history: Former smoker Have you smoked in the past 12 months: No If you are a former smoker, when did you quit?: 1993 - Social History ADL: Independent History of Recent Travel: No Home Medications - Allergies Allergies/Adverse Reactions: Allergies Allergy/AdvReac Type Severity Reaction Status Date / Time Anesthetics - Roxanna Type- Allergy "deathly Verified 02/16/18 17:18 Parabens sick-vomitting" No Known Drug Allergies Allergy Verified 02/16/18 17:18 - Home Medications Home Medications: Ambulatory Orders Aspirin Coated [Ecotrin -] 81 mg PO DAILY 03/24/14 Calcium 500 mg PO DAILY 03/24/14 Clopidogrel Bisulfate [Plavix -] 75 mg PO DAILY 03/24/14 Cranberry Extract [Cranberry] 200 mg PO DAILY 03/24/14 Ferrous Sulfate [Feosol] 325 mg PO BID 03/24/14 Folic Acid/Multivit-Min/Lutein [Centrum Silver Chewable Tablet] 1 each PO DAILY 03/24/14 Metoprolol Tartrate [Lopressor -] 25 mg PO BID 03/24/14 [place]-3 Fatty Acids [[place]-3] 1,000 mg PO DAILY 03/24/14 Pravastatin Sodium 20 mg PO HS 03/24/14 Vitamin E Mixed [Vitamin E] 1,000 unit PO DAILY 03/24/14 Sitagliptin Phos/Metformin HCl [Janumet 50-500 mg Tablet] 1 tab PO BID 12/31/14 Cholecalciferol (Vitamin D3) [Vitamin D3] 1,000 unit PO DAILY 10/10/15 Cyanocobalamin [Vitamin B12 -] 1,000 mcg PO DAILY 10/10/15 Glucosamine/Chondr Solano A Sod [Osteo Bi-Flex Caplet] 1 each PO DAILY 10/10/15 Timolol 0.5% [Timoptic 0.5%] 1 drop OU BID 02/14/16 Olmesartan Medoxomil [Benicar -] 40 mg PO DAILY #30 tablet 02/25/16 Dexlansoprazole [Dexilant -] 1 tab PO DAILY 12/30/17 Fenofibrate Nanocrystallized [Triglide] 160 mg PO DAILY 12/30/17 Hydrocodone/Acetaminophen [Hydrocodon-Acetaminoph 7.5-325] 1 each PO Q6H #40 tablet MDD 4 02/18/18 Family Disease History - Family Disease History Family History: Unremarkable Review of Systems - Review of Systems Constitutional: reports: No Symptoms Eyes: reports: No Symptoms HENT: reports: No Symptoms Neck: reports: No Symptoms Cardiovascular: reports: No Symptoms Respiratory: reports: No Symptoms Gastrointestinal: reports: No Symptoms Physical Exam Vital Signs: Vital Signs Temperature 98.2 F 02/18/18 22:03 Pulse Rate 90 02/18/18 22:03 Respiratory Rate 20 02/18/18 22:03 Blood Pressure 144/61 02/18/18 22:03 O2 Sat by Pulse Oximetry (%) 97 02/18/18 19:42 Constitutional: Yes: No Distress Eyes: Yes: WNL HENT: Yes: WNL Neck: Yes: WNL, Supple Cardiovascular: Yes: WNL, Regular Rate and Rhythm Respiratory: Yes: WNL, Regular, CTA Bilaterally Gastrointestinal: Yes: WNL, Normal Bowel Sounds, Soft Extremities: Yes: Other (Lt shoulder w/ dressing) Edema: No Problem List - Problems (1) Bacteremia Assessment/Plan: S/P I&D of lt shoulder Cont wound care BC (+) for gram (+) cocciCont IV vanco(as per ID) x 4-6 weeks Monitor weekly cbc/ESR/vanco levels Code(s): R78.81 - BACTEREMIA (2) Diabetes Assessment/Plan: Cont metformin/januvia Code(s): E11.9 - TYPE 2 DIABETES MELLITUS WITHOUT COMPLICATIONS Qualifiers: Diabetes mellitus type: type 2 (3) HTN (hypertension) Assessment/Plan: BP stable Cont valsartan/metoprolol/asa Code(s): I10 - ESSENTIAL (PRIMARY) HYPERTENSION (4) Hyperlipidemia Assessment/Plan: Cont lipitor/fenofibratae Code(s): E78.5 - HYPERLIPIDEMIA, UNSPECIFIED (5) Anemia Assessment/Plan: Cont [id number] Check labs in am Code(s): D64.9 - ANEMIA, UNSPECIFIED (6) CAD (coronary artery disease) Assessment/Plan: Cont plavix Code(s): I25.10 - ATHSCL HEART DISEASE OF [place] CORONARY ARTERY W/O ANG PCTRS
[2018-02-18] MEDS: ACETAMINOPHEN 500 MG TABLET (FP) PO PRN (23:33)
[2018-02-19] MEDS: VANCOMYCIN 1 GM PREMIX - 1 GM/200 ML BAG IVPB SCH ×2 (05:56→16:26)
[2018-02-19] MEDS ORDERED: PT OWN MED DRAWER 7, Y5N ONE ×6 (06:01→21:02)
[2018-02-19] MEDS: sitaGLIPtin PHOSPHATE 50 MG TABLET PO SCH ×2 (06:03→16:26)
[2018-02-19] MEDS: metFORMIN HCL 500 MG TABLET (FP) PO SCH ×2 (06:03→16:26)
[2018-02-19] MEDS: ACETAMINOPHEN 500 MG TABLET (FP) PO PRN (06:03)
[2018-02-19] MEDS: INSULIN SLIDING SCALE (NOVOLOG) 1 VIAL SQ SCH ×4 (06:11→21:29)
[2018-02-19 07:03] LABS: BASO % 0.6 % (0-2.0); EOS % 11.2 % (0-4.5); HEMATOCRIT 18.8 % (32.4-45.2); LYMPH % 15.2 % (8-40); MCH 26.5 pg (25.7-33.7); MCHC 33.3 g/dl (32.0-36.0); MEAN CELL VOLUME 79.6 fl (80-96); MEAN PLT VOLUME 6.8 fl (7.5-11.1); MONO % 8.4 % (3.8-10.2); NEUT % 64.6 % (42.8-82.8); PLATELET COUNT 481 K/MM3 (134-434); RBC 2.36 M/mm3 (3.60-5.2); RDW 16.4 % (11.6-15.6); WHITE BLOOD COUNT 13.3 K/mm3 (4.0-10.0)
[2018-02-19 07:21] LABS: CHLORIDE 100 mmol/L (98-107); POTASSIUM 3.8 mmol/L (3.5-5.1); SODIUM 134 mmol/L (136-145)
[2018-02-19 07:24] LABS: HEMOGLOBIN 6.3 GM/dL (10.7-15.3)
[2018-02-19 07:35] LABS: ALBUMIN 2.4 g/dl (3.4-5.0); ALK PHOS 96 U/L (45-117); ANION GAP 10 (8-16); BILIRUBIN,TOTAL 0.4 mg/dL (0.2-1.0); BLOOD UREA NITROGEN 7 mg/dL (7-18); CALCIUM 8.3 mg/dL (8.5-10.1); CO2 24 mmol/L (21-32); CREATININE 0.6 mg/dL (0.55-1.02); GLUCOSE,RANDOM 150 mg/dL (74-106); SGOT/AST 11 U/L (15-37); SGPT/ALT 20 U/L (12-78); TOT PROT 5.7 g/dl (6.4-8.2)
[2018-02-19] MEDS: TIMOLOL 0.5% OPHTHALMIC SOL 5 ML BOTTLE OU SCH ×2 (10:00→21:31)
[2018-02-19] MEDS: VALSARTAN 160 MG TABLET (UD) PO SCH (10:23)
[2018-02-19] MEDS: METOPROLOL TARTRATE 25 MG TABLET (FP) PO SCH ×2 (10:23→21:29)
[2018-02-19] MEDS: FERROUS SO4 325 MG TABLET (FP) PO SCH ×2 (10:23→21:29)
[2018-02-19] MEDS: PANTOPRAZOLE 40 MG TABLET (FP) PO SCH (10:23)
[2018-02-19] MEDS: CLOPIDOGREL BISULFATE 75 MG TABLET (FP) PO SCH (10:23)
[2018-02-19] MEDS: ASPIRIN COATED 81 MG TABLET.EC PO SCH (10:24)
[2018-02-19] MEDS: FENOFIBRIC ACID 135 MG CAP PO SCH (10:27)
--- NOTE | 2018-02-19 10:47 | PN ---
Progress Note (short form) - Note Progress Note: Ortho Pt seen and examined s/p left shoulder I &D pod #2 Selected Entries 02/19/18 09:00 Temperature 98.1 F Pulse Rate 92 H Respiratory 17 Rate Blood Pressure 136/75 Laboratory Tests 02/19/18 06:30 WBC 13.3 H Hgb 6.3 L* D Hct 18.8 L D Plt Count 481 H dressing c/d/i, good rom of elbow nvi a/p will receive 1 unit PRBCs abx as per ID ROM exercises pain control will follow
--- NOTE | 2018-02-19 14:11 | PN ---
Progress Note, Physician History of Present Illness: POD# 2 I&D L shoulder No c/o pain No fever/ chills Blood c/s Presumed MRSA - Current Medication List Current Medications: Active Medications Acetaminophen (Tylenol -) 1,000 mg PO Q6H PRN PRN Reason: PAIN LEVEL 4 - 6 Last Admin: 02/19/18 06:03 Dose: 1,000 mg Aspirin (Ecotrin -) 81 mg PO DAILY [facility] Last Admin: 02/19/18 10:24 Dose: 81 mg Atorvastatin Calcium (Lipitor -) 10 mg PO HS [facility] Last Admin: 02/18/18 22:05 Dose: 10 mg Clopidogrel Bisulfate (Plavix -) 75 mg PO DAILY [facility] Last Admin: 02/19/18 10:23 Dose: 75 mg Fenofibric Acid (Trilipix -) 135 mg PO DAILY [facility] Last Admin: 02/19/18 10:27 Dose: 135 mg Ferrous Sulfate (Feosol -) 325 mg PO BID [facility] Last Admin: 02/19/18 10:23 Dose: 325 mg Lactated Ringer's (Lactated Ringers Solution) 1,000 mls @ 75 mls/hr IV ASDIR [facility] Last Admin: 02/18/18 16:30 Dose: Not Given Vancomycin HCl (Vancomycin 1 Gm Premix -) 1 gm in 200 mls @ 133.333 mls/hr IVPB Q12H [facility]; Protocol Last Admin: 02/19/18 05:56 Dose: 133.333 mls/hr Insulin Aspart (Novolog Vial Sliding Scale -) 1 vial SQ ACHS [facility]; Protocol Last Admin: 02/19/18 11:45 Dose: Not Given Metformin HCl (Glucophage -) 500 mg PO BID@0700,1630 [facility] Last Admin: 02/19/18 06:03 Dose: 500 mg Metoprolol Tartrate (Lopressor -) 25 mg PO BID [facility] Last Admin: 02/19/18 10:23 Dose: 25 mg Ondansetron HCl (Zofran Injection) 4 mg IVPUSH Q6H PRN PRN Reason: NAUSEA AND/OR VOMITING Pantoprazole Sodium (Protonix -) 40 mg PO DAILY [facility] Last Admin: 02/19/18 10:23 Dose: 40 mg Promethazine HCl (Phenergan Injection -) 12.5 mg IVPB Q6H PRN PRN Reason: NAUSEA-FOR RESCUE AFTER 15 MIN Sitagliptin Phosphate (Januvia -) 50 mg PO BID@0700,1630 [facility] Last Admin: 02/19/18 06:03 Dose: 50 mg Timolol Maleate (Timoptic 0.5%) 1 drop OU BID [facility] Last Admin: 02/19/18 10:00 Dose: 1 drp Valsartan (Diovan -) 320 mg PO DAILY [facility] Last Admin: 02/19/18 10:23 Dose: 320 mg - Objective Vital Signs: Vital Signs Temperature 98.2 F 02/19/18 13:15 Pulse Rate 88 02/19/18 13:15 Respiratory Rate 18 02/19/18 13:15 Blood Pressure 124/88 02/19/18 13:15 O2 Sat by Pulse Oximetry (%) 96 02/19/18 09:00 Constitutional: Yes: No Distress Eyes: Yes: Conjunctiva Clear Cardiovascular: Yes: Regular Rate and Rhythm, S1, S2 Respiratory: Yes: CTA Bilaterally Gastrointestinal: Yes: Normal Bowel Sounds, Soft. No: Tenderness Extremities: Yes: Other (L shoudler wound healing well no erythema/ drainage) Labs: CBC, BMP 02/19/18 06:30 02/19/18 06:30 Assessment/Plan POD # 2 I&D L shoulder Hx + wound c/s MRSA + BC presumed MRSA Continue Vancomycin. Check level Await final BC result Repeat BC am Echocardiogram
[2018-02-19] MEDS: LACTATED RINGERS SOLUTION 1,000 ML IV SCH (16:27)
--- NOTE | 2018-02-19 19:52 | PN ---
Progress Note, Physician - Current Medication List Current Medications: Active Medications Acetaminophen (Tylenol -) 1,000 mg PO Q6H PRN PRN Reason: PAIN LEVEL 4 - 6 Last Admin: 02/19/18 06:03 Dose: 1,000 mg Aspirin (Ecotrin -) 81 mg PO DAILY [facility] Last Admin: 02/19/18 10:24 Dose: 81 mg Atorvastatin Calcium (Lipitor -) 10 mg PO HS [facility] Last Admin: 02/18/18 22:05 Dose: 10 mg Clopidogrel Bisulfate (Plavix -) 75 mg PO DAILY [facility] Last Admin: 02/19/18 10:23 Dose: 75 mg Fenofibric Acid (Trilipix -) 135 mg PO DAILY [facility] Last Admin: 02/19/18 10:27 Dose: 135 mg Ferrous Sulfate (Feosol -) 325 mg PO BID [facility] Last Admin: 02/19/18 10:23 Dose: 325 mg Lactated Ringer's (Lactated Ringers Solution) 1,000 mls @ 75 mls/hr IV ASDIR [facility] Last Admin: 02/19/18 16:27 Dose: Not Given Vancomycin HCl (Vancomycin 1 Gm Premix -) 1 gm in 200 mls @ 133.333 mls/hr IVPB Q12H [facility]; Protocol Last Admin: 02/19/18 16:26 Dose: 133.333 mls/hr Insulin Aspart (Novolog Vial Sliding Scale -) 1 vial SQ ACHS [facility]; Protocol Last Admin: 02/19/18 17:30 Dose: Not Given Metformin HCl (Glucophage -) 500 mg PO BID@0700,1630 [facility] Last Admin: 02/19/18 16:26 Dose: 500 mg Metoprolol Tartrate (Lopressor -) 25 mg PO BID [facility] Last Admin: 02/19/18 10:23 Dose: 25 mg Ondansetron HCl (Zofran Injection) 4 mg IVPUSH Q6H PRN PRN Reason: NAUSEA AND/OR VOMITING Pantoprazole Sodium (Protonix -) 40 mg PO DAILY [facility] Last Admin: 02/19/18 10:23 Dose: 40 mg Promethazine HCl (Phenergan Injection -) 12.5 mg IVPB Q6H PRN PRN Reason: NAUSEA-FOR RESCUE AFTER 15 MIN Sitagliptin Phosphate (Januvia -) 50 mg PO BID@0700,1630 [facility] Last Admin: 02/19/18 16:26 Dose: 50 mg Timolol Maleate (Timoptic 0.5%) 1 drop OU BID [facility] Last Admin: 02/19/18 10:00 Dose: 1 drp Valsartan (Diovan -) 320 mg PO DAILY [facility] Last Admin: 02/19/18 10:23 Dose: 320 mg - Objective Vital Signs: Vital Signs Temperature 98.6 F 02/19/18 17:31 Pulse Rate 87 02/19/18 17:31 Respiratory Rate 17 02/19/18 17:31 Blood Pressure 158/72 02/19/18 17:31 O2 Sat by Pulse Oximetry (%) 96 02/19/18 09:00 Labs: CBC, BMP 02/19/18 06:30 02/19/18 06:30 Problem List - Problems (1) Bacteremia Code(s): R78.81 - BACTEREMIA (2) Diabetes Code(s): E11.9 - TYPE 2 DIABETES MELLITUS WITHOUT COMPLICATIONS Qualifiers: Diabetes mellitus type: type 2 (3) HTN (hypertension) Code(s): I10 - ESSENTIAL (PRIMARY) HYPERTENSION (4) Hyperlipidemia Code(s): E78.5 - HYPERLIPIDEMIA, UNSPECIFIED (5) Anemia Code(s): D64.9 - ANEMIA, UNSPECIFIED (6) CAD (coronary artery disease) Code(s): I25.10 - ATHSCL HEART DISEASE OF [place] CORONARY ARTERY W/O ANG PCTRS
[2018-02-19] MEDS: ATORVASTATIN CA 10 MG TABLET (FP) PO SCH (21:28)
[2018-02-20] MEDS ORDERED: PT OWN MED DRAWER 7, Y5N ONE ×4 (03:54→15:52)
[2018-02-20] MEDS: metFORMIN HCL 500 MG TABLET (FP) PO SCH ×2 (06:36→16:13)
[2018-02-20] MEDS: sitaGLIPtin PHOSPHATE 50 MG TABLET PO SCH ×2 (06:36→16:08)
[2018-02-20] MEDS: INSULIN SLIDING SCALE (NOVOLOG) 1 VIAL SQ SCH ×4 (06:37→21:43)
[2018-02-20] MEDS: CLOPIDOGREL BISULFATE 75 MG TABLET (FP) PO SCH (10:01)
[2018-02-20] MEDS: FERROUS SO4 325 MG TABLET (FP) PO SCH ×2 (10:01→21:42)
[2018-02-20] MEDS: VALSARTAN 160 MG TABLET (UD) PO SCH (10:01)
[2018-02-20] MEDS: ASPIRIN COATED 81 MG TABLET.EC PO SCH (10:01)
[2018-02-20] MEDS: PANTOPRAZOLE 40 MG TABLET (FP) PO SCH (10:01)
[2018-02-20] MEDS: METOPROLOL TARTRATE 25 MG TABLET (FP) PO SCH ×2 (10:01→21:42)
[2018-02-20] MEDS: TIMOLOL 0.5% OPHTHALMIC SOL 5 ML BOTTLE OU SCH ×2 (10:01→21:50)
[2018-02-20] MEDS: FENOFIBRIC ACID 135 MG CAP PO SCH (10:02)
--- NOTE | 2018-02-20 12:03 | PN ---
Progress Note, Physician History of Present Illness: POD# 3 I&D L shoulder No c/o pain No fever/ chills Blood c/s MRSA Repeat BC prelim no growth - Current Medication List Current Medications: Active Medications Acetaminophen (Tylenol -) 1,000 mg PO Q6H PRN PRN Reason: PAIN LEVEL 4 - 6 Last Admin: 02/19/18 06:03 Dose: 1,000 mg Aspirin (Ecotrin -) 81 mg PO DAILY [facility] Last Admin: 02/20/18 10:01 Dose: 81 mg Atorvastatin Calcium (Lipitor -) 10 mg PO HS [facility] Last Admin: 02/19/18 21:28 Dose: 10 mg Clopidogrel Bisulfate (Plavix -) 75 mg PO DAILY [facility] Last Admin: 02/20/18 10:01 Dose: 75 mg Fenofibric Acid (Trilipix -) 135 mg PO DAILY [facility] Last Admin: 02/20/18 10:02 Dose: 135 mg Ferrous Sulfate (Feosol -) 325 mg PO BID [facility] Last Admin: 02/20/18 10:01 Dose: 325 mg Lactated Ringer's (Lactated Ringers Solution) 1,000 mls @ 75 mls/hr IV ASDIR [facility] Last Admin: 02/19/18 16:27 Dose: Not Given Insulin Aspart (Novolog Vial Sliding Scale -) 1 vial SQ ACHS [facility]; Protocol Last Admin: 02/20/18 10:08 Dose: Not Given Metformin HCl (Glucophage -) 500 mg PO BID@0700,1630 [facility] Last Admin: 02/20/18 06:36 Dose: 500 mg Metoprolol Tartrate (Lopressor -) 25 mg PO BID [facility] Last Admin: 02/20/18 10:01 Dose: 25 mg Ondansetron HCl (Zofran Injection) 4 mg IVPUSH Q6H PRN PRN Reason: NAUSEA AND/OR VOMITING Pantoprazole Sodium (Protonix -) 40 mg PO DAILY [facility] Last Admin: 02/20/18 10:01 Dose: 40 mg Promethazine HCl (Phenergan Injection -) 12.5 mg IVPB Q6H PRN PRN Reason: NAUSEA-FOR RESCUE AFTER 15 MIN Sitagliptin Phosphate (Januvia -) 50 mg PO BID@0700,1630 [facility] Last Admin: 02/20/18 06:36 Dose: 50 mg Timolol Maleate (Timoptic 0.5%) 1 drop OU BID [facility] Last Admin: 02/20/18 10:01 Dose: 1 drp Valsartan (Diovan -) 320 mg PO DAILY [facility] Last Admin: 02/20/18 10:01 Dose: 320 mg - Objective Vital Signs: Vital Signs Temperature 98.3 F 02/20/18 06:00 Pulse Rate 93 H 02/20/18 06:00 Respiratory Rate 18 02/20/18 06:00 Blood Pressure 147/73 02/20/18 06:00 O2 Sat by Pulse Oximetry (%) 96 02/19/18 21:00 Constitutional: Yes: No Distress Cardiovascular: Yes: Regular Rate and Rhythm, S1, S2 Respiratory: Yes: CTA Bilaterally Gastrointestinal: Yes: Normal Bowel Sounds, Soft Extremities: Yes: Other (L shoulder wound no drainage) Labs: CBC, BMP 02/19/18 06:30 02/19/18 06:30 Assessment/Plan POD # 3 I&D L shoulder Hx + wound c/s MRSA + BC MRSA Resume Vancomycin. Repeat BC pending
--- NOTE | 2018-02-20 14:06 | PN ---
Progress Note (short form) - Note Progress Note: Ortho Pt seen and examined s/p left shoulder I &D pod #3. received 1 unit yesterday Microbiology 02/17/18 15:44 Shoulder - Left Gram Stain - Final 02/17/18 15:44 Shoulder - Left Wound Culture - Preliminary Mr S Aureus Selected Entries 02/20/18 08:00 Temperature 98.3 F Pulse Rate 96 H Respiratory 20 Rate Blood Pressure 139/82 dressing c/d/i, no drainage from incision, good rom of elbow nvi a/p abx as per ID f/u cbc d/c sling ROM exercises pain control will follow
[2018-02-20] MEDS: ACETAMINOPHEN 500 MG TABLET (FP) PO PRN ×2 (15:07→21:42)
[2018-02-20 15:51] LABS: HEMATOCRIT 22.6 % (32.4-45.2); HEMOGLOBIN 7.4 GM/dL (10.7-15.3); MCH 26.6 pg (25.7-33.7); MCHC 32.9 g/dl (32.0-36.0); MEAN CELL VOLUME 80.9 fl (80-96); MEAN PLT VOLUME 7.1 fl (7.5-11.1); PLATELET COUNT 522 K/MM3 (134-434); RDW 16.3 % (11.6-15.6); WHITE BLOOD COUNT 14.4 K/mm3 (4.0-10.0)
[2018-02-20] MEDS: VANCOMYCIN 1 GM PREMIX - 1 GM/200 ML BAG IVPB SCH (16:07)
[2018-02-20] MEDS: LORATADINE 10 MG TABLET PO SCH (16:17)
[2018-02-20] MEDS: diphenhydrAMINE HCL 25 MG CAPSULE (FP) PO PRN ×2 (16:17→21:42)
[2018-02-20 16:18] LABS: ALBUMIN 2.4 g/dl (3.4-5.0); ANION GAP 11 (8-16); BLOOD UREA NITROGEN 10 mg/dL (7-18); CHLORIDE 99 mmol/L (98-107); CO2 24 mmol/L (21-32); CREATININE 0.7 mg/dL (0.55-1.02); GLUCOSE,RANDOM 138 mg/dL (74-106); POTASSIUM 3.8 mmol/L (3.5-5.1); SGOT/AST 19 U/L (15-37); SGPT/ALT 22 U/L (12-78); SODIUM 134 mmol/L (136-145)
[2018-02-20 16:20] LABS: ALK PHOS 104 U/L (45-117); BILIRUBIN,TOTAL 0.4 mg/dL (0.2-1.0); TOT PROT 5.7 g/dl (6.4-8.2)
[2018-02-20] MEDS: LACTATED RINGERS SOLUTION 1,000 ML IV SCH (16:28)
[2018-02-20] MEDS: ATORVASTATIN CA 10 MG TABLET (FP) PO SCH (21:42)
[2018-02-21] MEDS ORDERED: PT OWN MED DRAWER 7, Y5N ONE ×3 (06:07→16:51)
[2018-02-21] MEDS: diphenhydrAMINE HCL 25 MG CAPSULE (FP) PO PRN ×2 (06:33→21:31)
[2018-02-21] MEDS: ACETAMINOPHEN 500 MG TABLET (FP) PO PRN ×2 (06:33→21:31)
[2018-02-21] MEDS: sitaGLIPtin PHOSPHATE 50 MG TABLET PO SCH ×2 (06:34→16:58)
[2018-02-21] MEDS: metFORMIN HCL 500 MG TABLET (FP) PO SCH ×2 (06:34→16:57)
[2018-02-21] MEDS: INSULIN SLIDING SCALE (NOVOLOG) 1 VIAL SQ SCH ×4 (06:35→22:54)
[2018-02-21 07:19] LABS: HEMATOCRIT 24.2 % (32.4-45.2); MCH 27.1 pg (25.7-33.7); MCHC 33.1 g/dl (32.0-36.0); MEAN CELL VOLUME 81.8 fl (80-96); MEAN PLT VOLUME 7.1 fl (7.5-11.1); PLATELET COUNT 582 K/MM3 (134-434); RBC 2.96 M/mm3 (3.60-5.2); RDW 16.6 % (11.6-15.6); WHITE BLOOD COUNT 15.5 K/mm3 (4.0-10.0)
[2018-02-21 08:14] LABS: ANION GAP 6 (8-16); BLOOD UREA NITROGEN 8 mg/dL (7-18); CALCIUM 8.4 mg/dL (8.5-10.1); CHLORIDE 100 mmol/L (98-107); CO2 29 mmol/L (21-32); CREATININE 0.6 mg/dL (0.55-1.02); GLUCOSE,RANDOM 104 mg/dL (74-106); POTASSIUM 4.2 mmol/L (3.5-5.1); SODIUM 135 mmol/L (136-145)
[2018-02-21] MEDS: ASPIRIN COATED 81 MG TABLET.EC PO SCH (10:26)
[2018-02-21] MEDS: LORATADINE 10 MG TABLET PO SCH (10:26)
[2018-02-21] MEDS: CLOPIDOGREL BISULFATE 75 MG TABLET (FP) PO SCH (10:26)
[2018-02-21] MEDS: PANTOPRAZOLE 40 MG TABLET (FP) PO SCH (10:26)
[2018-02-21] MEDS: VALSARTAN 160 MG TABLET (UD) PO SCH (10:26)
[2018-02-21] MEDS: METOPROLOL TARTRATE 25 MG TABLET (FP) PO SCH ×2 (10:26→21:31)
[2018-02-21] MEDS: FERROUS SO4 325 MG TABLET (FP) PO SCH ×2 (10:26→21:31)
[2018-02-21] MEDS: FENOFIBRIC ACID 135 MG CAP PO SCH (10:27)
[2018-02-21] MEDS: TIMOLOL 0.5% OPHTHALMIC SOL 5 ML BOTTLE OU SCH ×2 (10:28→22:54)
--- NOTE | 2018-02-21 12:09 | PN ---
Physical Exam: SUBJECTIVE: Patient seen and examined. She has no complaints. She reports some pain in her left shoulder. OBJECTIVE: Vital Signs Period Temp Pulse Resp BP Sys/Song Pulse Ox Last 24 Hr 98.0 F-98.7 F 81-87 20-21 127-153/67-89 96 GENERAL: The patient is awake, alert, and fully oriented, in no acute distress. LUNGS: Breath sounds equal, clear to auscultation bilaterally, no wheezes, no crackles, no accessory muscle use. HEART: Regular rate and rhythm, S1, S2 without murmur, rub or gallop. ABDOMEN: Soft, nontender, nondistended, normoactive bowel sounds, no guarding, no rebound, no hepatosplenomegaly, no masses. EXTREMITIES: 2+ pulses, warm, well-perfused, no edema. Laboratory Results - last 24 hr 02/20/18 02/20/18 02/20/18 15:20 15:20 16:03 WBC 14.4 H RBC 2.80 L Hgb 7.4 L Hct 22.6 L D MCV 80.9 MCH 26.6 MCHC 32.9 RDW 16.3 H Plt Count 522 H MPV 7.1 L Sodium 134 L Potassium 3.8 Chloride 99 Carbon Dioxide 24 Anion Gap 11 BUN 10 Creatinine 0.7 Creat Clearance w eGFR > 60 POC Glucometer 136 Random Glucose 138 H Calcium 8.0 L Total Bilirubin 0.4 AST 19 ALT 22 Alkaline Phosphatase 104 Total Protein 5.7 L Albumin 2.4 L 02/20/18 02/21/18 02/21/18 21:40 06:33 06:40 WBC 15.5 H RBC 2.96 L Hgb 8.0 L Hct 24.2 L MCV 81.8 MCH 27.1 MCHC 33.1 RDW 16.6 H Plt Count 582 H MPV 7.1 L Sodium Potassium Chloride Carbon Dioxide Anion Gap BUN Creatinine Creat Clearance w eGFR POC Glucometer 115 129 Random Glucose Calcium Total Bilirubin AST ALT Alkaline Phosphatase Total Protein Albumin 02/21/18 06:40 WBC RBC Hgb Hct MCV MCH MCHC RDW Plt Count MPV Sodium 135 L Potassium 4.2 Chloride 100 Carbon Dioxide 29 Anion Gap 6 L BUN 8 Creatinine 0.6 Creat Clearance w eGFR > 60 POC Glucometer Random Glucose 104 Calcium 8.4 L Total Bilirubin AST ALT Alkaline Phosphatase Total Protein Albumin Active Medications Generic Name Dose Route Start Last Admin Trade Name Freq PRN Reason Stop Dose Admin Acetaminophen 1,000 mg 02/18/18 22:46 02/21/18 06:33 Tylenol - PO 1,000 mg Q6H PRN Administration PAIN LEVEL 4 - 6 Aspirin 81 mg 02/18/18 10:00 02/21/18 10:26 Ecotrin - PO 81 mg DAILY GM Administration Atorvastatin Calcium 10 mg 02/17/18 22:00 02/20/18 21:42 Lipitor - PO 10 mg HS GM Administration Clopidogrel Bisulfate 75 mg 02/18/18 10:00 02/21/18 10:26 Plavix - PO 75 mg DAILY [facility] Administration Diphenhydramine HCl 25 mg 02/20/18 16:00 02/21/18 06:33 Benadryl - PO 25 mg Q6H PRN Administration FOR ITCHING Fenofibric Acid 135 mg 02/18/18 10:00 02/21/18 10:27 Trilipix - PO 135 mg DAILY GM Administration Ferrous Sulfate 325 mg 02/17/18 22:00 02/21/18 10:26 Feosol - PO 325 mg BID GM Administration Lactated Ringer's 1,000 mls @ 75 mls/hr 02/17/18 16:15 02/20/18 16:28 Lactated Ringers Solution IV Not Given ASDIR [facility] Vancomycin HCl 1 gm in 200 mls @ 200 mls/hr 02/20/18 17:00 02/20/18 16:07 Vancomycin 1 Gm Premix - IVPB 200 mls/hr DAILY@1700 [facility] Administration Protocol Insulin Aspart 1 vial 02/17/18 11:00 02/21/18 06:35 Novolog Vial Sliding Scale - SQ 2 units ACHS [facility] Administration Protocol Loratadine 10 mg 02/20/18 16:15 02/21/18 10:26 Claritin - PO 10 mg DAILY [facility] Administration Metformin HCl 500 mg 02/18/18 07:00 02/21/18 06:34 Glucophage - PO 500 mg BID@0700,1630 [facility] Administration Metoprolol Tartrate 25 mg 02/17/18 22:00 02/21/18 10:26 Lopressor - PO 25 mg BID [facility] Administration Ondansetron HCl 4 mg 02/17/18 16:08 Zofran Injection IVPUSH Q6H PRN NAUSEA AND/OR VOMITING Pantoprazole Sodium 40 mg 02/18/18 10:00 02/21/18 10:26 Protonix - PO 40 mg DAILY [facility] Administration Promethazine HCl 12.5 mg 02/17/18 16:08 Phenergan Injection - IVPB Q6H PRN NAUSEA-FOR RESCUE AFTER 15 MIN Sitagliptin Phosphate 50 mg 02/18/18 07:00 02/21/18 06:34 Januvia - PO 50 mg BID@0700,1630 [facility] Administration Timolol Maleate 1 drop 02/17/18 22:00 02/21/18 10:28 Timoptic 0.5% OU 1 drp BID [facility] Administration Valsartan 320 mg 02/18/18 10:00 02/21/18 10:26 Diovan - PO 320 mg DAILY [facility] Administration ASSESSMENT/PLAN: 1. MRSA infection of left shoulder with bacteremia - s/p open I&D of left shoulder 02/17 - s/p left shoulder arthroscopy, removal of hardware, subacromial decompression, open rotator cuff repair 12/31 - Continue Vancomycin - Blood cultures (02/20) negative after 24 hours - LUE sling removed 2. Type 2 DM - Continue metformin, Januvia, Novolog sliding scale 3. HTN - Continue Diovan, Lopressor 4. Hyperlipidemia - Continue Lipitor, Trilipix 5. Anemia, acute on chronic - Transfused 1 unit PRBCs - Hemoglobin stable - Continue ferrous sulfate 6. CAD, history of stents - Continue aspirin, Plavix, Lipitor Visit type - Emergency Visit Emergency Visit: No - New Patient This patient is new to me today: Yes Date on this admission: 02/21/18 - Critical Care Critical Care patient: No - Discharge Referral Referred to [facility] No
[2018-02-21] MEDS ORDERED: INSULIN (NOVOLOG) ASPART 100 UNITS/ML 10ML VIAL ONE ×2 (16:51→21:24)
[2018-02-21] MEDS: LACTATED RINGERS SOLUTION 1,000 ML IV SCH (16:58)
[2018-02-21] MEDS: guaiFENesin/D-METHORPHAN HB 10 ML UNIT-DOSE CUPS PO PRN (16:58)
[2018-02-21] MEDS: VANCOMYCIN 1 GM PREMIX - 1 GM/200 ML BAG IVPB SCH (16:58)
[2018-02-21] MEDS: ATORVASTATIN CA 10 MG TABLET (FP) PO SCH (21:31)
[2018-02-22] MEDS ORDERED: PT OWN MED DRAWER 7, Y5N ONE ×2 (05:34→17:24)
[2018-02-22] MEDS: INSULIN SLIDING SCALE (NOVOLOG) 1 VIAL SQ SCH ×2 (06:21→11:48)
[2018-02-22] MEDS: metFORMIN HCL 500 MG TABLET (FP) PO SCH ×2 (06:21→17:34)
[2018-02-22] MEDS: sitaGLIPtin PHOSPHATE 50 MG TABLET PO SCH ×2 (06:21→17:34)
[2018-02-22] MEDS: diphenhydrAMINE HCL 25 MG CAPSULE (FP) PO PRN ×2 (06:21→17:34)
[2018-02-22] MEDS: guaiFENesin/D-METHORPHAN HB 10 ML UNIT-DOSE CUPS PO PRN ×2 (06:21→11:48)
[2018-02-22] MEDS: ACETAMINOPHEN 500 MG TABLET (FP) PO PRN ×2 (06:21→20:04)
--- NOTE | 2018-02-22 08:43 | PN ---
Progress Note (short form) - Note Progress Note: Ortho Pt seen and examined s/p left shoulder I &D pod #5 Selected Entries 02/22/18 06:00 Temperature 98.9 F Pulse Rate 91 H Respiratory 18 Rate Blood Pressure 138/68 Laboratory Tests 02/21/18 06:40 WBC 15.5 H Hgb 8.0 L Hct 24.2 L Plt Count 582 H dressing slight drainage, no drainage was able to be expressed from incision, good rom of elbow nvi a/p abx as per ID ROM exercises pain control d/c planning as per ID and when infusions have been arranged
[2018-02-22] MEDS: CLOPIDOGREL BISULFATE 75 MG TABLET (FP) PO SCH (09:54)
[2018-02-22] MEDS: VALSARTAN 160 MG TABLET (UD) PO SCH (09:54)
[2018-02-22] MEDS: LORATADINE 10 MG TABLET PO SCH (09:54)
[2018-02-22] MEDS: FERROUS SO4 325 MG TABLET (FP) PO SCH ×2 (09:54→21:34)
[2018-02-22] MEDS: METOPROLOL TARTRATE 25 MG TABLET (FP) PO SCH ×2 (09:54→21:34)
[2018-02-22] MEDS: PANTOPRAZOLE 40 MG TABLET (FP) PO SCH (09:54)
[2018-02-22] MEDS: ASPIRIN COATED 81 MG TABLET.EC PO SCH (09:55)
[2018-02-22] MEDS: TIMOLOL 0.5% OPHTHALMIC SOL 5 ML BOTTLE OU SCH ×2 (09:58→21:36)
[2018-02-22] MEDS: FENOFIBRIC ACID 135 MG CAP PO SCH (10:00)
[2018-02-22] MEDS ORDERED: INSULIN (NOVOLOG) ASPART 100 UNITS/ML 10ML VIAL ONE (11:43)
--- NOTE | 2018-02-22 14:30 | PN ---
Physical Exam: SUBJECTIVE: Patient seen and examined. c/o cough and congested nose, no fever, chills. OBJECTIVE: Vital Signs Period Temp Pulse Resp BP Sys/Song Pulse Ox Last 24 Hr 98.2 F-98.9 F 89-91 18-20 138-146/68-84 96-97 PE Neuro: alert, awake, cn 2-12intact Pulm: CTAB CV: s1 s2 rrr no mrg Abd: s nt nd + bs Ext: Left shoulder dressing with mild serious drainage RUE picc, no le edema Laboratory Results - last 24 hr 02/19/18 02/21/18 02/21/18 09:45 16:56 21:38 POC Glucometer 114 113 Blood Type A NEGATIVE Antibody Screen Positive H Antibody Identification Anti-d Crossmatch See Detail 02/22/18 02/22/18 06:16 11:44 POC Glucometer 131 126 Blood Type Antibody Screen Antibody Identification Crossmatch Active Medications Generic Name Dose Route Start Last Admin Trade Name Freq PRN Reason Stop Dose Admin Acetaminophen 1,000 mg 02/18/18 22:46 02/22/18 06:21 Tylenol - PO 1,000 mg Q6H PRN Administration PAIN LEVEL 4 - 6 Aspirin 81 mg 02/18/18 10:00 02/22/18 09:55 Ecotrin - PO 81 mg DAILY [facility] Administration Atorvastatin Calcium 10 mg 02/17/18 22:00 02/21/18 21:31 Lipitor - PO 10 mg HS GM Administration Clopidogrel Bisulfate 75 mg 02/18/18 10:00 02/22/18 09:54 Plavix - PO 75 mg DAILY [facility] Administration Diphenhydramine HCl 25 mg 02/20/18 16:00 02/22/18 06:21 Benadryl - PO 25 mg Q6H PRN Administration FOR ITCHING Fenofibric Acid 135 mg 02/18/18 10:00 02/22/18 10:00 Trilipix - PO 135 mg DAILY [facility] Administration Ferrous Sulfate 325 mg 02/17/18 22:00 02/22/18 09:54 Feosol - PO 325 mg BID GM Administration Guaifenesin 10 ml 02/21/18 16:36 02/22/18 11:48 Robitussin Dm - PO 10 ml Q6H PRN Administration COUGH Guaifenesin 600 mg 02/22/18 14:26 Mucinex - PO 06/27/18 14:25 BID [facility] Lactated Ringer's 1,000 mls @ 75 mls/hr 02/17/18 16:15 02/21/18 16:58 Lactated Ringers Solution IV Not Given ASDIR [facility] Vancomycin HCl 1 gm in 200 mls @ 200 mls/hr 02/20/18 17:00 02/21/18 16:58 Vancomycin 1 Gm Premix - IVPB 200 mls/hr DAILY@1700 [facility] Administration Protocol Insulin Aspart 1 vial 02/17/18 11:00 02/22/18 11:48 Novolog Vial Sliding Scale - SQ 2 units ACHS [facility] Administration Protocol Loratadine 10 mg 02/20/18 16:15 02/22/18 09:54 Claritin - PO 10 mg DAILY [facility] Administration Metformin HCl 500 mg 02/18/18 07:00 02/22/18 06:21 Glucophage - PO 500 mg BID@0700,1630 [facility] Administration Metoprolol Tartrate 25 mg 02/17/18 22:00 02/22/18 09:54 Lopressor - PO 25 mg BID [facility] Administration Ondansetron HCl 4 mg 02/17/18 16:08 Zofran Injection IVPUSH Q6H PRN NAUSEA AND/OR VOMITING Pantoprazole Sodium 40 mg 02/18/18 10:00 02/22/18 09:54 Protonix - PO 40 mg DAILY [facility] Administration Promethazine HCl 12.5 mg 02/17/18 16:08 Phenergan Injection - IVPB Q6H PRN NAUSEA-FOR RESCUE AFTER 15 MIN Sitagliptin Phosphate 50 mg 02/18/18 07:00 02/22/18 06:21 Januvia - PO 50 mg BID@0700,1630 [facility] Administration Timolol Maleate 1 drop 02/17/18 22:00 02/22/18 09:58 Timoptic 0.5% OU 1 drp BID [facility] Administration Valsartan 320 mg 02/18/18 10:00 02/22/18 09:54 Diovan - PO 320 mg DAILY [facility] Administration Microbiology 02/17/18 15:44 Gram Stain - Final Shoulder - Left Wound Culture - Final S Aureus 02/20/18 07:10 Blood Culture - Preliminary Blood - Peripheral Venous NO GROWTH OBTAINED AFTER 48 HOURS, INCUBATION TO CONTINUE FOR 3 DAYS. 02/20/18 07:10 Blood Culture - Preliminary Blood - Peripheral Venous NO GROWTH OBTAINED AFTER 48 HOURS, INCUBATION TO CONTINUE FOR 3 DAYS. 02/17/18 19:20 Blood Culture - Preliminary Blood - Peripheral Venous NO GROWTH OBTAINED AFTER 96 HOURS, INCUBATION TO CONTINUE FOR 1 DAYS. 02/17/18 15:44 Gram Stain - Final Shoulder - Left Wound Culture - Preliminary Assessment: 72 year old female w/ PMHx HTN, HLD, CHF, Anemia, GERD, chronic lower back pain and CAD. Pt had undergone arthroscopy of lt shoulder in 01/15 and now presented for I&D of lt shoulder wc was done on 02/17/18. However BC showed gram (+) cocci and pt had PIC line placement and has been on IV vanco. Plan: 1. MRSA infection of left shoulder with bacteremia - s/p open I&D of left shoulder 02/17 - s/p left shoulder arthroscopy, removal of hardware, subacromial decompression , open rotator cuff repair 12/31 - Continue Vancomycin - Repeat Blood cultures (02/20) NGTD - LUE sling removed 2. Type 2 DM - Continue metformin, Januvia, Novolog sliding scale - Stop sliding scale, evaluate sugars 3. HTN - Controlled - Continue Diovan, Lopressor 4. Hyperlipidemia - Continue Lipitor, Trilipix 5. Anemia, acute on chronic - Hgb stable - Transfused 1uPRBCs 02/19 - Continue ferrous sulfate 6. CAD, history of stents - Continue aspirin, Plavix, Lipitor 7. URI - CXR neg for infiltrate - Give mucinex x2days - Monitor for fever Dispo: - Home with infusions, ID for final sign off Visit type - Emergency Visit Emergency Visit: Yes ED Registration Date: 02/17/18 Care time: The patient presented to the Emergency Department on the above date and was hospitalized for further evaluation of their emergent condition. - New Patient This patient is new to me today: Yes Date on this admission: 02/22/18 - Critical Care Critical Care patient: No
[2018-02-22] MEDS: guaiFENesin 600 MG TABLET.ER (FP) PO SCH ×2 (15:05→21:34)
[2018-02-22] MEDS: VANCOMYCIN 1 GM PREMIX - 1 GM/200 ML BAG IVPB SCH (18:11)
[2018-02-22] MEDS: ATORVASTATIN CA 10 MG TABLET (FP) PO SCH (21:34)
[2018-02-23] MEDS: sitaGLIPtin PHOSPHATE 50 MG TABLET PO SCH ×2 (06:14→16:47)
[2018-02-23] MEDS: metFORMIN HCL 500 MG TABLET (FP) PO SCH ×2 (06:14→16:47)
[2018-02-23 07:37] LABS: CHLORIDE 100 mmol/L (98-107); POTASSIUM 3.8 mmol/L (3.5-5.1); SODIUM 136 mmol/L (136-145)
[2018-02-23 07:42] LABS: ANION GAP 9 (8-16); BLOOD UREA NITROGEN 7 mg/dL (7-18); CALCIUM 8.4 mg/dL (8.5-10.1); CO2 27 mmol/L (21-32); CREATININE 0.6 mg/dL (0.55-1.02); GLUCOSE,RANDOM 129 mg/dL (74-106)
[2018-02-23] MEDS: guaiFENesin 600 MG TABLET.ER (FP) PO SCH ×2 (09:43→21:11)
[2018-02-23] MEDS: FENOFIBRIC ACID 135 MG CAP PO SCH (09:43)
[2018-02-23] MEDS: PANTOPRAZOLE 40 MG TABLET (FP) PO SCH (09:43)
[2018-02-23] MEDS: METOPROLOL TARTRATE 25 MG TABLET (FP) PO SCH ×2 (09:43→21:14)
[2018-02-23] MEDS: VALSARTAN 160 MG TABLET (UD) PO SCH (09:43)
[2018-02-23] MEDS: LORATADINE 10 MG TABLET PO SCH (09:43)
[2018-02-23] MEDS: ASPIRIN COATED 81 MG TABLET.EC PO SCH (09:43)
[2018-02-23] MEDS: CLOPIDOGREL BISULFATE 75 MG TABLET (FP) PO SCH (09:43)
[2018-02-23] MEDS: FERROUS SO4 325 MG TABLET (FP) PO SCH ×2 (09:43→21:11)
[2018-02-23] MEDS: TIMOLOL 0.5% OPHTHALMIC SOL 5 ML BOTTLE OU SCH ×2 (09:44→21:12)
[2018-02-23] MEDS: guaiFENesin/D-METHORPHAN HB 10 ML UNIT-DOSE CUPS PO PRN (09:44)
--- NOTE | 2018-02-23 13:20 | PN ---
Progress Note, Physician History of Present Illness: C/O dry cough No c/o dyspnea/ chest pain POD# 6 I&D L shoulder No c/o shoulder pain No fever/ chills Blood c/s MRSA Repeat BC prelim no growth - Current Medication List Current Medications: Active Medications Acetaminophen (Tylenol -) 1,000 mg PO Q6H PRN PRN Reason: PAIN LEVEL 4 - 6 Last Admin: 02/22/18 20:04 Dose: 1,000 mg Aspirin (Ecotrin -) 81 mg PO DAILY [facility] Last Admin: 02/23/18 09:43 Dose: 81 mg Atorvastatin Calcium (Lipitor -) 10 mg PO HS [facility] Last Admin: 02/22/18 21:34 Dose: 10 mg Clopidogrel Bisulfate (Plavix -) 75 mg PO DAILY [facility] Last Admin: 02/23/18 09:43 Dose: 75 mg Diphenhydramine HCl (Benadryl -) 25 mg PO Q6H PRN PRN Reason: FOR ITCHING Last Admin: 02/22/18 17:34 Dose: 25 mg Fenofibric Acid (Trilipix -) 135 mg PO DAILY [facility] Last Admin: 02/23/18 09:43 Dose: 135 mg Ferrous Sulfate (Feosol -) 325 mg PO BID [facility] Last Admin: 02/23/18 09:43 Dose: 325 mg Guaifenesin (Robitussin Dm -) 10 ml PO Q6H PRN PRN Reason: COUGH Last Admin: 02/23/18 09:44 Dose: 10 ml Guaifenesin (Mucinex -) 600 mg PO BID [facility] Stop: 02/24/18 14:25 Last Admin: 02/23/18 09:43 Dose: 600 mg Vancomycin HCl (Vancomycin 1 Gm Premix -) 1 gm in 200 mls @ 200 mls/hr IVPB DAILY@1700 [facility]; Protocol Last Admin: 02/22/18 18:11 Dose: 200 mls/hr Loratadine (Claritin -) 10 mg PO DAILY [facility] Last Admin: 02/23/18 09:43 Dose: 10 mg Metformin HCl (Glucophage -) 500 mg PO BID@0700,1630 [facility] Last Admin: 02/23/18 06:14 Dose: 500 mg Metoprolol Tartrate (Lopressor -) 25 mg PO BID [facility] Last Admin: 02/23/18 09:43 Dose: 25 mg Ondansetron HCl (Zofran Injection) 4 mg IVPUSH Q6H PRN PRN Reason: NAUSEA AND/OR VOMITING Pantoprazole Sodium (Protonix -) 40 mg PO DAILY [facility] Last Admin: 02/23/18 09:43 Dose: 40 mg Promethazine HCl (Phenergan Injection -) 12.5 mg IVPB Q6H PRN PRN Reason: NAUSEA-FOR RESCUE AFTER 15 MIN Sitagliptin Phosphate (Januvia -) 50 mg PO BID@0700,1630 [facility] Last Admin: 02/23/18 06:14 Dose: 50 mg Timolol Maleate (Timoptic 0.5%) 1 drop OU BID [facility] Last Admin: 02/23/18 09:44 Dose: 1 drp Valsartan (Diovan -) 320 mg PO DAILY [facility] Last Admin: 02/23/18 09:43 Dose: 320 mg - Objective Vital Signs: Vital Signs Temperature 99.0 F 02/23/18 05:47 Pulse Rate 88 02/23/18 05:47 Respiratory Rate 20 02/23/18 05:47 Blood Pressure 149/83 02/23/18 05:47 O2 Sat by Pulse Oximetry (%) 98 02/22/18 21:00 Constitutional: Yes: No Distress Eyes: Yes: Conjunctiva Clear Cardiovascular: Yes: Regular Rate and Rhythm, S1, S2 Respiratory: Yes: CTA Bilaterally Gastrointestinal: Yes: Normal Bowel Sounds, Soft. No: Tenderness Extremities: Yes: Other (L shoulder wound no erythema/ drainage) Labs: CBC, BMP 02/21/18 06:40 02/23/18 06:30 Assessment/Plan POD # 6 I&D L shoulder Hx + wound c/s MRSA + BC MRSA Continue Vancomycin 1gm IVPB q24h for additional 3-5w Asked patient to follow up with me as outpatient 2w
--- NOTE | 2018-02-23 14:23 | CON.CARD ---
Consult Consult Specialty:: cardiology Reason for Consultation:: Hx CAD; operated on clopidogrel - History of Present Illness Chief Complaint: Pt A&Ox3; asymptomatic History of Present Illness: Pt is a 72 y/o white female w/ PMH significant for HTN, HLD, diastolic CHF, Anemia, GERD, chronic lower back pain and CAD (s/p coronary stent several years ago). Pt had undergone arthroscopy of lt shoulder in 01/15 and now presented for I&D of lt shoulder wc was done on 02/17/18. However BC showed gram (+) cocci and pt had PIC line placement and has been on IV vanco. Pt also seen by ID consult. Pt has been afebrile w/ a normal WBC - History Source History Provided By: Patient, Medical Record - Past Medical History Cardio/Vascular: Yes: CAD, CHF, HTN, Hyperlipdemia Gastrointestinal: Yes: Gastritis ...: No Psych: Yes: Anxiety Musculoskeletal: Yes: Chronic low back pain - Past Surgical History Past Surgical History: Yes: Cataract Removal, Joint Replacement (knee), Stent ( coronary; ureteral) Additional Surgical History: Lt shoulder arthroscopy - Alcohol/Substance Use Hx Alcohol Use: No - Smoking History Smoking history: Former smoker Have you smoked in the past 12 months: No If you are a former smoker, when did you quit?: 1993 - Social History Usual Living Arrangement: With Child ADL: Independent History of Recent Travel: No Home Medications - Allergies Allergies/Adverse Reactions: Allergies Allergy/AdvReac Type Severity Reaction Status Date / Time Anesthetics - Roxanna Type- Allergy "deathly Verified 02/16/18 17:18 Parabens sick-vomitting" No Known Drug Allergies Allergy Verified 02/16/18 17:18 - Home Medications Home Medications: Ambulatory Orders Aspirin Coated [Ecotrin -] 81 mg PO DAILY 03/24/14 Calcium 500 mg PO DAILY 03/24/14 Clopidogrel Bisulfate [Plavix -] 75 mg PO DAILY 03/24/14 Cranberry Extract [Cranberry] 200 mg PO DAILY 03/24/14 Ferrous Sulfate [Feosol] 325 mg PO BID 03/24/14 Folic Acid/Multivit-Min/Lutein [Centrum Silver Chewable Tablet] 1 each PO DAILY 03/24/14 Metoprolol Tartrate [Lopressor -] 25 mg PO BID 03/24/14 [place]-3 Fatty Acids [[place]-3] 1,000 mg PO DAILY 03/24/14 Pravastatin Sodium 20 mg PO HS 03/24/14 Vitamin E Mixed [Vitamin E] 1,000 unit PO DAILY 03/24/14 Sitagliptin Phos/Metformin HCl [Janumet 50-500 mg Tablet] 1 tab PO BID 08/30/14 Cholecalciferol (Vitamin D3) [Vitamin D3] 1,000 unit PO DAILY 10/10/15 Cyanocobalamin [Vitamin B12 -] 1,000 mcg PO DAILY 10/10/15 Glucosamine/Chondr Solano A Sod [Osteo Bi-Flex Caplet] 1 each PO DAILY 10/10/15 Timolol 0.5% [Timoptic 0.5%] 1 drop OU BID 02/14/16 Olmesartan Medoxomil [Benicar -] 40 mg PO DAILY #30 tablet 02/25/16 Dexlansoprazole [Dexilant -] 1 tab PO DAILY 12/30/17 Fenofibrate Nanocrystallized [Triglide] 160 mg PO DAILY 12/30/17 Hydrocodone/Acetaminophen [Hydrocodon-Acetaminoph 7.5-325] 1 each PO Q6H #40 tablet MDD 4 02/18/18 Family Disease History - Family Disease History Family History: Denies Review of Systems - Review of Systems Constitutional: reports: Weakness Eyes: reports: No Symptoms HENT: reports: No Symptoms Neck: reports: No Symptoms Cardiovascular: reports: No Symptoms Respiratory: reports: No Symptoms Gastrointestinal: reports: No Symptoms Genitourinary: reports: No Symptoms Breasts: reports: No Symptoms Reported Musculoskeletal: reports: Decreased ROM, Muscle Pain, Muscle Weakness Integumentary: reports: Incision Neurological: reports: Weakness Endocrine: reports: No Symptoms Hematology/Lymphatic: reports: No Symptoms Psychiatric: reports: Anxiety, Depression - Risk Factors Known Risk Factors: Yes: Age, Diabetes Mellitus, Hypercholesterolemia, Hypertension, Other (CAD) Vital Signs: Vital Signs Temperature 99.0 F 02/23/18 05:47 Pulse Rate 88 02/23/18 05:47 Respiratory Rate 20 02/23/18 05:47 Blood Pressure 149/83 02/23/18 05:47 O2 Sat by Pulse Oximetry (%) 98 02/22/18 21:00 Constitutional: Yes: Anxious Eyes: Yes: WNL HENT: Yes: WNL Neck: Yes: WNL Respiratory: Yes: WNL Gastrointestinal: Yes: Soft Renal/: No: Anuria Cardiovascular: Yes: WNL JVD: No Carotid Bruit: No PMI: Non-Displaced Heart Sounds: Yes: S1 Murmur: Yes: Systolic Murmur, Grade 2 Musculoskeletal: Yes: Joint Stiffness, Muscle Pain (at shoulder surgery site), Muscle Weakness Extremities: Yes: WNL Edema: No Peripheral Pulses WNL: No Integumentary: Yes: Incision Neurological: Yes: Alert, Oriented Psychiatric: Yes: Alert, Oriented - Other Data Labs, Other Data: CBC, BMP 02/21/18 06:40 02/23/18 06:30 Abnormal Lab Results 02/23/18 02/23/18 02/23/18 06:30 19:20 19:20 WBC 15.7 H RBC 2.86 L Hgb 7.6 L Hct 23.2 L RDW 17.3 H Plt Count 692 H MPV 7.3 L Eosinophils % 19.4 H Sodium 131 L Random Glucose 129 H 181 H Calcium 8.4 L Total Protein 6.3 L Albumin 2.7 L Antibody Screen Crossmatch 02/24/18 01:10 WBC RBC Hgb Hct RDW Plt Count MPV Eosinophils % Sodium Random Glucose Calcium Total Protein Albumin Antibody Screen Positive H Crossmatch See Detail Ejection Fraction %: LVEF > or = 40 % Problem List - Problems (1) H/O shoulder surgery Code(s): Z98.890 - OTHER SPECIFIED POSTPROCEDURAL STATES (2) Bacteremia Assessment/Plan: rising leukocytosis; f/u with ID. s/p PIC line; on IV Vancomycin. Code(s): R78.81 - BACTEREMIA (3) Anemia Code(s): D64.9 - ANEMIA, UNSPECIFIED (4) Diabetes Assessment/Plan: On Januvia and Glucophage. Code(s): E11.9 - TYPE 2 DIABETES MELLITUS WITHOUT COMPLICATIONS Qualifiers: Diabetes mellitus type: type 2 (5) HTN (hypertension) Assessment/Plan: On metoprolol and ARB. Code(s): I10 - ESSENTIAL (PRIMARY) HYPERTENSION (6) Hyperlipidemia Assessment/Plan: On atorvastatin and Trilipix. Code(s): E78.5 - HYPERLIPIDEMIA, UNSPECIFIED (7) S/P coronary artery stent placement Assessment/Plan: Coronary stent placed several years ago. Pt has been off clopidogrel since the shoulder surgery. Clopidogrel restarted (though, if bleeding is an issue, it may be stopped due to the remote hx of stent. Pt, however, has been reluctant to stop it). Continue ASA 81 mg daily. Code(s): Z95.5 - PRESENCE OF CORONARY ANGIOPLASTY IMPLANT AND GRAFT
[2018-02-23] MEDS: diphenhydrAMINE HCL 25 MG CAPSULE (FP) PO PRN ×2 (14:33→21:11)
--- NOTE | 2018-02-23 15:00 | PN ---
Progress Note (short form) - Note Progress Note: Pt seen and examined. She is feeling somewhat better. Much less discharge from left shoulder wound. On IV Vancomycin, PICC line. AVSS PE Left shoulder dressing with minimal serous drainage CHENTE NVI Minimal pain in left shoulder. Imp S/p left shoulder I&D, on IV Vancomycin, has PICC line, improving Rec DC as per ID F/U with orthopedics in 1 week
[2018-02-23] MEDS: VANCOMYCIN 1 GM PREMIX - 1 GM/200 ML BAG IVPB SCH (16:47)
[2018-02-23 19:38] LABS: BASO % 0.4 % (0-2.0); EOS % 19.4 % (0-4.5); HEMATOCRIT 23.2 % (32.4-45.2); HEMOGLOBIN 7.6 GM/dL (10.7-15.3); LYMPH % 12.9 % (8-40); MCH 26.5 pg (25.7-33.7); MCHC 32.7 g/dl (32.0-36.0); MEAN CELL VOLUME 81.1 fl (80-96); MEAN PLT VOLUME 7.3 fl (7.5-11.1); MONO % 7.8 % (3.8-10.2); NEUT % 59.5 % (42.8-82.8); PLATELET COUNT 692 K/MM3 (134-434); RBC 2.86 M/mm3 (3.60-5.2); RDW 17.3 % (11.6-15.6); WHITE BLOOD COUNT 15.7 K/mm3 (4.0-10.0)
[2018-02-23 20:36] LABS: ALBUMIN 2.7 g/dl (3.4-5.0); ALK PHOS 111 U/L (45-117); ANION GAP 9 (8-16); BILIRUBIN,TOTAL 0.3 mg/dL (0.2-1.0); BLOOD UREA NITROGEN 8 mg/dL (7-18); CALCIUM 8.5 mg/dL (8.5-10.1); CHLORIDE 98 mmol/L (98-107); CO2 24 mmol/L (21-32); CREATININE 0.8 mg/dL (0.55-1.02); GLUCOSE,RANDOM 181 mg/dL (74-106); POTASSIUM 4.3 mmol/L (3.5-5.1); SGOT/AST 18 U/L (15-37); SGPT/ALT 24 U/L (12-78); SODIUM 131 mmol/L (136-145); TOT PROT 6.3 g/dl (6.4-8.2)
[2018-02-23] MEDS ORDERED: PT OWN MED DRAWER 7, Y5N ONE (21:01)
[2018-02-23] MEDS: ATORVASTATIN CA 10 MG TABLET (FP) PO SCH (21:11)
[2018-02-23] MEDS: ACETAMINOPHEN 500 MG TABLET (FP) PO PRN (21:14)
--- NOTE | 2018-02-23 21:21 | PN ---
Progress Note, Physician - Current Medication List Current Medications: Active Medications Acetaminophen (Tylenol -) 1,000 mg PO Q6H PRN PRN Reason: PAIN LEVEL 4 - 6 Last Admin: 02/23/18 21:14 Dose: 1,000 mg Aspirin (Ecotrin -) 81 mg PO DAILY [facility] Last Admin: 02/23/18 09:43 Dose: 81 mg Atorvastatin Calcium (Lipitor -) 10 mg PO HS [facility] Last Admin: 02/23/18 21:11 Dose: 10 mg Clopidogrel Bisulfate (Plavix -) 75 mg PO DAILY [facility] Last Admin: 02/23/18 09:43 Dose: 75 mg Diphenhydramine HCl (Benadryl -) 25 mg PO Q6H PRN PRN Reason: FOR ITCHING Last Admin: 02/23/18 21:11 Dose: 25 mg Fenofibric Acid (Trilipix -) 135 mg PO DAILY [facility] Last Admin: 02/23/18 09:43 Dose: 135 mg Ferrous Sulfate (Feosol -) 325 mg PO BID [facility] Last Admin: 02/23/18 21:11 Dose: 325 mg Guaifenesin (Robitussin Dm -) 10 ml PO Q6H PRN PRN Reason: COUGH Last Admin: 02/23/18 09:44 Dose: 10 ml Guaifenesin (Mucinex -) 600 mg PO BID [facility] Stop: 02/24/18 14:25 Last Admin: 02/23/18 21:11 Dose: 600 mg Vancomycin HCl (Vancomycin 1 Gm Premix -) 1 gm in 200 mls @ 200 mls/hr IVPB DAILY@1700 [facility]; Protocol Last Admin: 02/23/18 16:47 Dose: 200 mls/hr Loratadine (Claritin -) 10 mg PO DAILY [facility] Last Admin: 02/23/18 09:43 Dose: 10 mg Metformin HCl (Glucophage -) 500 mg PO BID@0700,1630 [facility] Last Admin: 02/23/18 16:47 Dose: 500 mg Metoprolol Tartrate (Lopressor -) 25 mg PO BID [facility] Last Admin: 02/23/18 21:14 Dose: 25 mg Ondansetron HCl (Zofran Injection) 4 mg IVPUSH Q6H PRN PRN Reason: NAUSEA AND/OR VOMITING Pantoprazole Sodium (Protonix -) 40 mg PO DAILY [facility] Last Admin: 02/23/18 09:43 Dose: 40 mg Promethazine HCl (Phenergan Injection -) 12.5 mg IVPB Q6H PRN PRN Reason: NAUSEA-FOR RESCUE AFTER 15 MIN Sitagliptin Phosphate (Januvia -) 50 mg PO BID@0700,1630 [facility] Last Admin: 02/23/18 16:47 Dose: 50 mg Timolol Maleate (Timoptic 0.5%) 1 drop OU BID [facility] Last Admin: 02/23/18 21:12 Dose: Not Given Valsartan (Diovan -) 320 mg PO DAILY [facility] Last Admin: 02/23/18 09:43 Dose: 320 mg - Objective Vital Signs: Vital Signs Temperature 98.5 F 02/23/18 18:00 Pulse Rate 86 02/23/18 18:00 Respiratory Rate 20 02/23/18 18:00 Blood Pressure 125/70 02/23/18 18:00 O2 Sat by Pulse Oximetry (%) 98 02/23/18 08:00 Labs: CBC, BMP 02/23/18 19:20 02/23/18 19:20 Problem List - Problems (1) Bacteremia Code(s): R78.81 - BACTEREMIA (2) Diabetes Code(s): E11.9 - TYPE 2 DIABETES MELLITUS WITHOUT COMPLICATIONS Qualifiers: Diabetes mellitus type: type 2 (3) HTN (hypertension) Code(s): I10 - ESSENTIAL (PRIMARY) HYPERTENSION (4) Hyperlipidemia Code(s): E78.5 - HYPERLIPIDEMIA, UNSPECIFIED (5) Anemia Code(s): D64.9 - ANEMIA, UNSPECIFIED (6) CAD (coronary artery disease) Code(s): I25.10 - ATHSCL HEART DISEASE OF [place] CORONARY ARTERY W/O ANG PCTRS
[2018-02-24] MEDS: guaiFENesin/D-METHORPHAN HB 10 ML UNIT-DOSE CUPS PO PRN ×2 (04:28→16:38)
[2018-02-24] MEDS: sitaGLIPtin PHOSPHATE 50 MG TABLET PO SCH ×2 (06:16→16:34)
[2018-02-24] MEDS: metFORMIN HCL 500 MG TABLET (FP) PO SCH ×2 (06:16→16:34)
[2018-02-24 07:40] LABS: BASO % 0.5 % (0-2.0); EOS % 21.4 % (0-4.5); HEMATOCRIT 25.1 % (32.4-45.2); HEMOGLOBIN 8.5 GM/dL (10.7-15.3); LYMPH % 12.6 % (8-40); MCH 27.7 pg (25.7-33.7); MCHC 33.7 g/dl (32.0-36.0); MEAN PLT VOLUME 7.1 fl (7.5-11.1); MONO % 6.9 % (3.8-10.2); NEUT % 58.6 % (42.8-82.8); PLATELET COUNT 600 K/MM3 (134-434); RBC 3.06 M/mm3 (3.60-5.2); RDW 17.1 % (11.6-15.6); WHITE BLOOD COUNT 12.7 K/mm3 (4.0-10.0)
[2018-02-24] MEDS ORDERED: PT OWN MED DRAWER 7, Y5N ONE (10:02)
[2018-02-24] MEDS: METOPROLOL TARTRATE 25 MG TABLET (FP) PO SCH (10:08)
[2018-02-24] MEDS: LORATADINE 10 MG TABLET PO SCH (10:08)
[2018-02-24] MEDS: ASPIRIN COATED 81 MG TABLET.EC PO SCH (10:08)
[2018-02-24] MEDS: CLOPIDOGREL BISULFATE 75 MG TABLET (FP) PO SCH (10:08)
[2018-02-24] MEDS: guaiFENesin 600 MG TABLET.ER (FP) PO SCH (10:08)
[2018-02-24] MEDS: FERROUS SO4 325 MG TABLET (FP) PO SCH (10:08)
[2018-02-24] MEDS: PANTOPRAZOLE 40 MG TABLET (FP) PO SCH (10:08)
[2018-02-24] MEDS: TIMOLOL 0.5% OPHTHALMIC SOL 5 ML BOTTLE OU SCH (10:10)
[2018-02-24] MEDS: FENOFIBRIC ACID 135 MG CAP PO SCH (10:11)
--- NOTE | 2018-02-24 11:47 | PN ---
Progress Note, Physician History of Present Illness: Pt is a 72 y/o white female w/ PMH significant for HTN, HLD, diastolic CHF, Anemia, GERD, chronic lower back pain and CAD (s/p coronary stent several years ago). Pt had undergone arthroscopy of lt shoulder in 01/15 and now presented for I&D of lt shoulder wc was done on 02/17/18. However BC showed gram (+) cocci and pt had PIC line placement and has been on IV vanco. Pt also seen by ID consult. Pt has been afebrile w/ a normal WBC - Current Medication List Current Medications: Active Medications Acetaminophen (Tylenol -) 1,000 mg PO Q6H PRN PRN Reason: PAIN LEVEL 4 - 6 Last Admin: 02/23/18 21:14 Dose: 1,000 mg Aspirin (Ecotrin -) 81 mg PO DAILY [facility] Last Admin: 02/24/18 10:08 Dose: 81 mg Atorvastatin Calcium (Lipitor -) 10 mg PO HS [facility] Last Admin: 02/23/18 21:11 Dose: 10 mg Clopidogrel Bisulfate (Plavix -) 75 mg PO DAILY [facility] Last Admin: 02/24/18 10:08 Dose: 75 mg Diphenhydramine HCl (Benadryl -) 25 mg PO Q6H PRN PRN Reason: FOR ITCHING Last Admin: 02/23/18 21:11 Dose: 25 mg Fenofibric Acid (Trilipix -) 135 mg PO DAILY [facility] Last Admin: 02/24/18 10:11 Dose: 135 mg Ferrous Sulfate (Feosol -) 325 mg PO BID [facility] Last Admin: 02/24/18 10:08 Dose: 325 mg Guaifenesin (Robitussin Dm -) 10 ml PO Q6H PRN PRN Reason: COUGH Last Admin: 02/24/18 04:28 Dose: 10 ml Guaifenesin (Mucinex -) 600 mg PO BID [facility] Stop: 02/24/18 14:25 Last Admin: 02/24/18 10:08 Dose: 600 mg Vancomycin HCl (Vancomycin 1 Gm Premix -) 1 gm in 200 mls @ 200 mls/hr IVPB DAILY@1700 [facility]; Protocol Last Admin: 02/23/18 16:47 Dose: 200 mls/hr Loratadine (Claritin -) 10 mg PO DAILY [facility] Last Admin: 02/24/18 10:08 Dose: 10 mg Metformin HCl (Glucophage -) 500 mg PO BID@0700,1630 [facility] Last Admin: 02/24/18 06:16 Dose: 500 mg Metoprolol Tartrate (Lopressor -) 25 mg PO BID [facility] Last Admin: 02/24/18 10:08 Dose: 25 mg Ondansetron HCl (Zofran Injection) 4 mg IVPUSH Q6H PRN PRN Reason: NAUSEA AND/OR VOMITING Pantoprazole Sodium (Protonix -) 40 mg PO DAILY [facility] Last Admin: 02/24/18 10:08 Dose: 40 mg Promethazine HCl (Phenergan Injection -) 12.5 mg IVPB Q6H PRN PRN Reason: NAUSEA-FOR RESCUE AFTER 15 MIN Sitagliptin Phosphate (Januvia -) 50 mg PO BID@0700,1630 [facility] Last Admin: 02/24/18 06:16 Dose: 50 mg Timolol Maleate (Timoptic 0.5%) 1 drop OU BID [facility] Last Admin: 02/24/18 10:10 Dose: 1 drp Valsartan (Diovan -) 320 mg PO DAILY [facility] Last Admin: 02/23/18 09:43 Dose: 320 mg - Objective Vital Signs: Vital Signs Temperature 99 F 02/24/18 08:10 Pulse Rate 85 02/24/18 06:00 Respiratory Rate 20 02/24/18 06:00 Blood Pressure 132/70 02/24/18 08:10 O2 Sat by Pulse Oximetry (%) 98 02/23/18 21:00 Eyes: Yes: WNL, Conjunctiva Clear, EOM Intact HENT: Yes: WNL, Atraumatic, Normocephalic Neck: Yes: WNL, Supple, Trachea Midline Cardiovascular: Yes: WNL, Regular Rate and Rhythm Respiratory: Yes: WNL, Regular, CTA Bilaterally Gastrointestinal: Yes: WNL, Normal Bowel Sounds Genitourinary: Yes: WNL Musculoskeletal: Yes: WNL Extremities: Yes: WNL Edema: No Integumentary: Yes: WNL Neurological: Yes: WNL, Alert, Oriented ...Motor Strength: WNL Psychiatric: Yes: WNL Labs: CBC, BMP 02/24/18 07:10 02/23/18 19:20 Assessment/Plan - Problems (1) H/O shoulder surgery Code(s): Z98.890 - OTHER SPECIFIED POSTPROCEDURAL STATES (2) Bacteremia Assessment/Plan: rising leukocytosis; f/u with ID. s/p PIC line; on IV Vancomycin. Code(s): R78.81 - BACTEREMIA (3) Anemia Code(s): D64.9 - ANEMIA, UNSPECIFIED (4) Diabetes Assessment/Plan: On Januvia and Glucophage. Code(s): E11.9 - TYPE 2 DIABETES MELLITUS WITHOUT COMPLICATIONS Qualifiers: Diabetes mellitus type: type 2 (5) HTN (hypertension) Assessment/Plan: On metoprolol and ARB. Code(s): I10 - ESSENTIAL (PRIMARY) HYPERTENSION (6) Hyperlipidemia Assessment/Plan: On atorvastatin and Trilipix. Code(s): E78.5 - HYPERLIPIDEMIA, UNSPECIFIED (7) S/P coronary artery stent placement Assessment/Plan: Coronary stent placed several years ago. Pt has been off clopidogrel since the shoulder surgery. Clopidogrel restarted (though, if bleeding is an issue, it may be stopped due to the remote hx of stent. Pt, however, has been reluctant to stop it). Continue ASA 81 mg daily. Code(s): Z95.5 - PRESENCE OF CORONARY ANGIOPLASTY IMPLANT AND GRAFT
[2018-02-24 12:21] LABS: ANISOCYTOSIS 2+; MACROCYTOSIS 0; PLATELET ESTIMATE INCREASED
--- NOTE | 2018-02-24 13:00 | EKG ---
Test Reason : Blood Pressure : / mmHG Vent. Rate : 089 BPM Atrial Rate : 089 BPM P-R Int : 148 ms QRS Dur : 090 ms QT Int : 360 ms P-R-T Axes : 052 036 029 degrees QTc Int : 438 ms SINUS RHYTHM WITH FREQUENT PREMATURE VENTRICULAR COMPLEXES OTHERWISE NORMAL ECG WHEN COMPARED WITH ECG OF 24-OCT-2015 10:13, PREMATURE VENTRICULAR COMPLEXES ARE NOW PRESENT Confirmed by JACQUELINE WAGNER, SHANNON ([id number]) on 02/24/2018 1:00:17 PM Referred By: TATY RICHARDSON DR Confirmed By:SHANNON PHILLIPS MD
[2018-02-24] MEDS: ACETAMINOPHEN 500 MG TABLET (FP) PO PRN (13:12)
[2018-02-24] MEDS: VALSARTAN 160 MG TABLET (UD) PO SCH (13:12)
[2018-02-24 13:30] VITALS: BP 131/71; PULSE 90; TEMP 98.4
[2018-02-24] MEDS: VANCOMYCIN 1 GM PREMIX - 1 GM/200 ML BAG IVPB SCH (16:35)
== END 2018-02-24 20:14 | disposition home health service (06) | DRG 863 ==
LOC: JASUSAT 05:57 → J6S 18:00 → JASUSAT 18:01 → J6S 18:01
PROVIDERS: ADMIT Orthopaedic Surgery; ATTEND Orthopaedic Surgery
PROC: 02HV33Z Insertion of Infusion Device into Superior Vena Cava, Percutaneous Approach (ICD-10-PCS; 2018-02-17)
PROC: 0X9300Z Drainage of Left Shoulder Region with Drainage Device, Open Approach (ICD-10-PCS; principal; 2018-02-17 13:30)
DX: T81.4XXA Infection following a procedure, initial encounter (principal); M00.012 Staphylococcal arthritis, left shoulder; R78.81 Bacteremia; I50.30 Unspecified diastolic (congestive) heart failure; A49.02 Methicillin resistant Staphylococcus aureus infection, unspecified site; I25.10 Atherosclerotic heart disease of native coronary artery without angina pectoris; I11.0 Hypertensive heart disease with heart failure; M54.5 Low back pain; K21.9 Gastro-esophageal reflux disease without esophagitis; E78.5 Hyperlipidemia, unspecified; E11.9 Type 2 diabetes mellitus without complications; D63.8 Anemia in other chronic diseases classified elsewhere; J06.9 Acute upper respiratory infection, unspecified; F41.9 Anxiety disorder, unspecified; Z95.5 Presence of coronary angioplasty implant and graft; Y83.8 Other surgical procedures as the cause of abnormal reaction of the patient, or of later complication, without mention of misadventure at the time of the procedure; Z96.659 Presence of unspecified artificial knee joint; Z87.891 Personal history of nicotine dependence
CPT/HCPCS: 36415; 36430; 36569; 71045-TC-FY; 77001-TC-FY; 80048; 80053; 81003; 81015; 82962; 85025; 85027; 85610; 85730; 86850; 86870; 86900; 86901; 86902; 86922; 87040; 87070; 87186; 87205; 93005; 93010; 93306-TC; 94760; C1751; G0480; P9038; P9058

== ENCOUNTER → 2018-06-11 | Day surgery (SDC) | payer OTHER, MEDICARE | END | disposition home or self-care (01) | LOC: JRADIR 09:55 → JSAMEDAYSX 09:57 | PROVIDERS: ATTEND Internal Medicine | PROC: 05HY33Z Insertion of Infusion Device into Upper Vein, Percutaneous Approach (ICD-10-PCS; principal; 2018-06-11) | DX: Z45.2 Encounter for adjustment and management of vascular access device (principal); B99.8 Other infectious disease | CPT/HCPCS: 36415; 36569; 77001-TC-FY; 80048; C1751 ==

== ENCOUNTER 2018-10-09 06:35 | Emergency (ER) | payer OTHER, MEDICARE ==
[2018-10-09 07:03] VITALS: BMI 28.3
--- NOTE | 2018-10-09 07:27 | PDOC ---
History of Present Illness - General Chief Complaint: Injury Stated Complaint: FALL Time Seen by Provider: 10/09/18 07:26 - History of Present Illness Initial Comments: 10/09/18 07:27 73 year old woman with a significant past medical history of HTN, DM, L shoulder injury in December 2017 w/ surgical repair but subsequent fluid collection and bacteremia in January 2018, now with repeat fluid collection in the L shoulder and R sided PICC line, last saw Ortho Dr. Husain 4 days ago, CAD s/p cardiac stent on ASA81 and plavix Patient presents after an unwitnessed fall without loss of consciousness. The patient was walking in the basement and was not wearing shoes when she slipped forward and slammed the L side of her head on the concrete floor. She denies loss of consciousness and was able to get up and walk upstairs immediately afterwards. She denies injury to any other extremity, denies neck pain. She denies headache, chest pain, nausea, dizziness or lightheadedness before and after the fall. She denies any recent illness, travel, n/v/d/c, dysuria, hematuria. Past History - Past Medical History Allergies/Adverse Reactions: Allergies Allergy/AdvReac Type Severity Reaction Status Date / Time Anesthetics - Roxanna Type- Allergy "deathly Verified 10/09/18 06:59 Parabens sick-vomitting" No Known Drug Allergies Allergy Verified 10/09/18 06:59 Home Medications: Ambulatory Orders Aspirin Coated [Ecotrin -] 81 mg PO DAILY 03/24/14 Calcium 500 mg PO DAILY 03/24/14 Clopidogrel Bisulfate [Plavix -] 75 mg PO DAILY 03/24/14 Cranberry Extract [Cranberry] 200 mg PO DAILY 03/24/14 Ferrous Sulfate [Feosol] 325 mg PO BID 03/24/14 Folic Acid/Multivit-Min/Lutein [Centrum Silver Chewable Tablet] 1 each PO DAILY 03/24/14 Metoprolol Tartrate [Lopressor -] 25 mg PO BID 03/24/14 Dacono-3 Fatty Acids [Dacono-3] 1,000 mg PO DAILY 03/24/14 Pravastatin Sodium 20 mg PO HS 03/24/14 Vitamin E Mixed [Vitamin E] 1,000 unit PO DAILY 03/24/14 Sitagliptin Phos/Metformin HCl [Janumet 50-500 mg Tablet] 1 tab PO BID 08/30/14 Cholecalciferol (Vitamin D3) [Vitamin D3] 1,000 unit PO DAILY 10/10/15 Cyanocobalamin [Vitamin B12 -] 1,000 mcg PO DAILY 10/10/15 Glucosamine/Chondr Solano A Sod [Osteo Bi-Flex Caplet] 1 each PO DAILY 10/10/15 Timolol 0.5% [Timoptic 0.5%] 1 drop OU BID 02/14/16 Olmesartan Medoxomil [Benicar -] 40 mg PO DAILY #30 tablet 02/25/16 Dexlansoprazole [Dexilant -] 1 tab PO DAILY 12/30/17 Fenofibrate Nanocrystallized [Triglide] 160 mg PO DAILY 12/30/17 Hydrocodone/Acetaminophen [Hydrocodon-Acetaminoph 7.5-325] 1 each PO Q6H #40 tablet MDD 4 02/18/18 Acetaminophen [Tylenol .Extra-Strength -] 1,000 mg PO Q6H PRN #90 tablet Diphenhydramine HCl [Benadryl Capsule -] 25 mg PO Q6H PRN #60 capsule 02/24/18 Anemia: Yes Asthma: No Cancer: No Cardiac Disorders: Yes (CAD) CVA: No COPD: No CHF: No Dementia: No Diabetes: Yes GI Disorders: Yes (ACID REFLUX) Disorders: No HTN: Yes Hypercholesterolemia: Yes Liver Disease: No Seizures: No Thyroid Disease: No - Surgical History Abdominal Surgery: No Appendectomy: No Cardiac Surgery: Yes (stent x1) Cholecystectomy: No Lung Surgery: No Neurologic Surgery: No Orthopedic Surgery: Yes (L KNEE ARTHROSCOPY,L KNEE REPLAC.,BILAT. RTC REPAIR) - Immunization History Immunization Up to Date: Yes - Suicide/Smoking/Psychosocial Hx Smoking History: Never smoked Have you smoked in the past 12 months: No If you are a former smoker, when did you quit?: 1993 Information on smoking cessation initiated: No Hx Alcohol Use: No Drug/Substance Use Hx: No Substance Use Type: None Hx Substance Use Treatment: No *Physical Exam - Vital Signs Last Vital Signs Temp Pulse Resp BP Pulse Ox 97.6 F 82 18 171/68 H 98 10/09/18 06:59 10/09/18 06:59 10/09/18 06:59 10/09/18 06:59 10/09/18 06:59 - Physical Exam Comments: 10/09/18 07:53 GENERAL: Awake, alert, and fully oriented, in no acute distress HEAD: No signs of trauma, L sided slight skull ridge, immoveable, unclear if anatomical EYES: EOMI, sclera anicteric, conjunctiva clear ENT: oropharynx clear without exudates. Moist mucosa NECK: Normal ROM, supple LUNGS: No distress, speaks full sentences, clear to auscultation bilaterally HEART: Regular rate and rhythm, normal S1 and S2, no murmurs, rubs or gallops, peripheral pulses normal and equal bilaterally. ABDOMEN: Soft, nontender, normoactive bowel sounds. No guarding, no rebound. No masses EXTREMITIES : L shoulder slight edema and warmth to touch, R arm PICC line NEUROLOGICAL: Cranial nerves II through XII grossly intact. Normal speech, no focal sensorimotor deficits SKIN: Warm, Dry, normal turgor, no rashes or lesions noted Moderate Sedation - Procedure Monitoring Vital Signs: Procedure Monitoring Vital Signs Temperature 97.6 F 10/09/18 06:59 Pulse Rate 82 10/09/18 06:59 Respiratory Rate 18 10/09/18 06:59 Blood Pressure 171/68 H 10/09/18 06:59 O2 Sat by Pulse Oximetry (%) 98 10/09/18 06:59 ED Treatment Course - LABORATORY CBC & Chemistry Diagram: 10/09/18 08:21 10/09/18 08:10 Medical Decision Making - Medical Decision Making 10/09/18 07:46 73 year old woman with a significant past medical history of HTN, DM, L shoulder injury in December 2017 w/ surgical repair but subsequent fluid collection and bacteremia in January 2018, now with repeat fluid collection in the L shoulder last saw Ortho Dr. Husain 4 days ago, CAD s/p cardiac stent on ASA81 and plavix , who presents after an unwitnessed fall without loss of consciousness. The patient was walking in the basement and was not wearing shoes when she slipped forward and slammed the L side of her head on the concrete floor. She denies loss of consciousness and was able to get up and walk upstairs again. ED Course: consider skull fx vs intracranial bleed etiology most likely mechanical, however unwitnessed will need to r/o arrythmia vs ACS vs electrolyte derangement vs infectious cbc, cmp, ekg, trop, cxr, head ct cervical spine cleared by Nexus critera EKG: normal sinus rhythm HR 80, occasional pvcs, no interval abnormalities, narrow QRS, ST and T wave segments and morphology normal. 10/09/18 10:29 labwork at baseline for patient. Head Ct: unremarkable. Patient stable for discharge. *DC/Admit/Observation/Transfer Diagnosis at time of Disposition: Head injury - Discharge Dispostion Disposition: HOME Condition at time of disposition: Stable Decision to Admit order: No - Referrals Referrals: Bobby Hansen MD [Primary Care Provider] - - Patient Instructions Printed Discharge Instructions: DI for Closed Head Injury Additional Instructions: You were seen in the ED for complaints of head injury after a fall. In the ED you were evaluated with labwork and imaging. Your results did not show significant findings. There does not appear to be an acute need for immediate hospitalization. You are advised to follow up with your Primary Care Physician within 1 week. Take over the counter Tylenol and Motrin for pain relief. Return to the ED immediately if you experience worsening headache, nausea, vomiting, dizziness, lightheadedness, fever or loss of consciousness. - Post Discharge Activity
--- NOTE | 2018-10-09 07:29 | PDOC ---
Attending Attestation - Resident Resident Name: Kayla Harper - ED Attending Attestation I have performed the following: I have examined & evaluated the patient, The case was reviewed & discussed with the resident, I agree w/resident's findings & plan, Exceptions are as noted - HPI HPI: 73 yo F history CAD presents s/p mechanical fall, hit her head on concrete in her basement floor. She takes ASA and plavix. Denies headache, neck pain. No weakness, numbness. - Physicial Exam PE: GENERAL: Awake, alert, and fully oriented, in no acute distress HEAD: +Tenderness to L parietal area, but no swelling noted. EYES: PERRLA, EOMI, sclera anicteric, conjunctiva clear ENT: Auricles normal inspection, hearing grossly normal, nares patent, oropharynx clear without exudates. Moist mucosa NECK: Normal ROM, supple, no lymphadenopathy, JVD, or masses LUNGS: Breath sounds equal, clear to auscultation bilaterally. No wheezes, and no crackles HEART: Regular rate and rhythm, normal S1 and S2, no murmurs, rubs or gallops ABDOMEN: Soft, nontender, normoactive bowel sounds. No guarding, no rebound. No masses EXTREMITIES: Normal range of motion, no edema. No clubbing or cyanosis. No cords, erythema, or tenderness NEUROLOGICAL: Cranial nerves II through XII grossly intact. Normal speech, normal gait. Motor and sensation intact SKIN: Warm, Dry, normal turgor, no rashes or lesions noted. - Medical Decision Making Pt s/p mechanical fall, on blood thinners. Will obtain CTH to r/o ICH. DC home if wnl.
[2018-10-09] MEDS ORDERED: ACETAMINOPHEN 325 MG TABLET (FP) PO ONE (08:01)
[2018-10-09 08:30] LABS: BASO % 0.3 % (0-2.0); EOS % 1.4 % (0-4.5); HEMATOCRIT 25.2 % (32.4-45.2); HEMOGLOBIN 8.5 GM/dL (10.7-15.3); LYMPH % 9.9 % (8-40); MCHC 33.6 g/dl (32.0-36.0); MEAN CELL VOLUME 80.2 fl (80-96); MONO % 6.2 % (3.8-10.2); NEUT % 82.2 % (42.8-82.8); PLATELET COUNT 702 K/MM3 (134-434); RBC 3.15 M/mm3 (3.60-5.2); RDW 15.5 % (11.6-15.6); WHITE BLOOD COUNT 11.1 K/mm3 (4.0-10.0)
[2018-10-09 08:32] LABS: INR 1.13 (0.83-1.09); PROTHROMBIN TIME (PATIENT) 13.3 SEC (9.7-13.0)
[2018-10-09 08:35] LABS: ACTIVATED PTT 25.4 SECONDS (25.2-36.5)
[2018-10-09 08:55] LABS: ALK PHOS 118 U/L (45-117); ANION GAP 8 MMOL/L (8-16); BILIRUBIN,TOTAL 0.4 mg/dL (0.2-1); BLOOD UREA NITROGEN 12 mg/dL (7-18); CALCIUM 9.3 mg/dL (8.5-10.1); CHLORIDE 102 mmol/L (98-107); CO2 24 mmol/L (21-32); CREATININE 0.9 mg/dL (0.55-1.3); GLUCOSE,RANDOM 157 mg/dL (74-106); SGOT/AST 21 U/L (15-37); SGPT/ALT 40 U/L (13-61); SODIUM 135 mmol/L (136-145); TOT PROT 6.8 g/dl (6.4-8.2)
[2018-10-09] MEDS ORDERED: ACETAMINOPHEN 325 MG TABLET (FP) ONE (09:30)
[2018-10-09 10:26] LABS: URINE APPEARANCE CLEAR; URINE BILIRUBIN NEGATIVE (<2.0 mg/dL); URINE COLOR COLORLESS; URINE GLUCOSE (UA) NEGATIVE (NEGATIVE); URINE KETONE NEGATIVE (NEGATIVE); URINE LEUK ESTERASE NEGATIVE (NEGATIVE); URINE NITRITE NEGATIVE (NEGATIVE); URINE PROTEIN NEGATIVE (NEGATIVE); URINE UROBILINOGEN NEGATIVE mg/dL (0.2-1.0)
[2018-10-09 11:57] VITALS: BP 145/83; PULSE 69; TEMP 97.8
--- NOTE | 2018-10-09 15:29 | EKG ---
Test Reason : Blood Pressure : / mmHG Vent. Rate : 080 BPM Atrial Rate : 080 BPM P-R Int : 134 ms QRS Dur : 086 ms QT Int : 380 ms P-R-T Axes : 042 046 029 degrees QTc Int : 438 ms SINUS RHYTHM WITH OCCASIONAL PREMATURE VENTRICULAR COMPLEXES OTHERWISE NORMAL ECG WHEN COMPARED WITH ECG OF 24-FEB-2018 08:24, NO SIGNIFICANT CHANGE WAS FOUND Confirmed by Castillo Polk MD ([id number]) on 10/09/2018 3:29:17 PM Referred By: Confirmed By:Castillo Polk MD
== END 2018-10-09 10:35 | disposition home or self-care (01) ==
LOC: JER 06:35
DX: S09.8XXA Other specified injuries of head, initial encounter (principal); W01.0XXA Fall on same level from slipping, tripping and stumbling without subsequent striking against object, initial encounter; Y93.89 Activity, other specified; Y92.018 Other place in single-family (private) house as the place of occurrence of the external cause; Y99.8 Other external cause status; I25.10 Atherosclerotic heart disease of native coronary artery without angina pectoris; I10 Essential (primary) hypertension; Z95.5 Presence of coronary angioplasty implant and graft; E11.9 Type 2 diabetes mellitus without complications; Z79.84 Long term (current) use of oral hypoglycemic drugs; E78.00 Pure hypercholesterolemia, unspecified; D64.9 Anemia, unspecified; Z79.01 Long term (current) use of anticoagulants; Z79.82 Long term (current) use of aspirin
CPT/HCPCS: 36415; 70450-TC; 80053; 81003; 84484; 85025; 85610; 85730; 93005; 93010; 99282-25

== ENCOUNTER 2019-03-17 11:47 | Emergency (ER) | payer OTHER, MEDICARE ==
[2019-03-17 11:52] VITALS: BP 139/58; PULSE 69; TEMP 97.8; BMI 29.2
--- NOTE | 2019-03-17 12:18 | PDOC ---
History of Present Illness - General Chief Complaint: Edema Stated Complaint: LT SWOLLEN WRIST Time Seen by Provider: 03/17/19 11:55 History Source: Patient Exam Limitations: Clinical Condition - History of Present Illness Initial Comments: 03/17/19 12:20 Patient with history of multiple comorbidities on blood thinners present with complaint of swelling to back of left wrist upon wake this morning which is painful. Denies trauma or injury to rest. Denies numbness or tingling sensation to wrist or hand. Denies decreased movement or restricted wrist movement. Denies any other symptoms Timing/Duration: reports: this morning Past History - Past Medical History Allergies/Adverse Reactions: Allergies Allergy/AdvReac Type Severity Reaction Status Date / Time Anesthetics - Roxanna Type- Allergy "deathly Verified 03/17/19 11:53 Parabens sick-vomitting" No Known Drug Allergies Allergy Verified 03/17/19 11:53 Home Medications: Ambulatory Orders Aspirin Coated [Ecotrin -] 81 mg PO DAILY 03/24/14 Clopidogrel Bisulfate [Plavix -] 75 mg PO DAILY 03/24/14 Metoprolol Tartrate [Lopressor -] 25 mg PO BID 03/24/14 Pravastatin Sodium 25 mg PO HS 03/24/14 Sitagliptin Phos/Metformin HCl [Janumet 50-500 mg Tablet] 1 tab PO BID 08/30/14 Olmesartan Medoxomil [Benicar -] 40 mg PO DAILY #30 tablet 02/25/16 Dexlansoprazole [Dexilant -] 1 tab PO DAILY 12/30/17 Fenofibrate Nanocrystallized [Triglide] 160 mg PO DAILY 12/30/17 Diclofenac Sodium [Voltaren] 1 applic TP Q8H PRN #1 tube 03/17/19 Anemia: Yes Asthma: No Cancer: No Cardiac Disorders: Yes (CAD) CVA: No COPD: No CHF: No Dementia: No Diabetes: Yes GI Disorders: Yes (ACID REFLUX) Disorders: No HTN: Yes Hypercholesterolemia: Yes Liver Disease: No Seizures: No Thyroid Disease: No - Surgical History Abdominal Surgery: No Appendectomy: No Cardiac Surgery: Yes (stent x1) Cholecystectomy: No Lung Surgery: No Neurologic Surgery: No Orthopedic Surgery: Yes (L KNEE ARTHROSCOPY,L KNEE REPLAC.,BILAT. RTC REPAIR) - Immunization History Immunization Up to Date: Yes - Suicide/Smoking/Psychosocial Hx Smoking History: Never smoked Have you smoked in the past 12 months: No If you are a former smoker, when did you quit?: 1993 Information on smoking cessation initiated: No Hx Alcohol Use: No Drug/Substance Use Hx: No Substance Use Type: None Hx Substance Use Treatment: No Review of Systems - Review of Systems Able to Perform ROS?: Yes Is the patient limited Guatemalan proficient: No Constitutional: No: Malaise, Weakness HEENTM: No: Symptoms Reported Respiratory: No: Symptoms reported Cardiac (ROS): No: Symptoms Reported ABD/GI: No: Symptoms Reported Musculoskeletal: Yes: Symptoms Reported, See HPI, Joint Swelling (back of left wrist), Muscle Pain (back of left wrist) Integumentary: Yes: See HPI, Other (swelling to back of left wrist). No: Symptoms Reported, Change in Color, Erythema Neurological: No: Numbness, Paresthesia, Tingling All Other Systems: Reviewed and Negative *Physical Exam - Vital Signs Last Vital Signs Temp Pulse Resp BP Pulse Ox 97.8 F 69 17 139/58 L 97 03/17/19 11:50 03/17/19 11:50 03/17/19 11:50 03/17/19 11:50 03/17/19 11:50 - Physical Exam Comments: 03/17/19 12:23 GENERAL: Well developed, well nourished. Awake and alert. No acute distress. CARDIOVASCULAR: Regular rate and rhythm. No murmurs, rubs, or gallops. PULMONARY: No evidence of respiratory distress. MUSCULOSKELETAL : mild tenderness over dorsal aspect of left wrist over 5 cm ganglion cyst of left wrist. No bony deformities SKIN: Warm and dry. Normal capillary refill. 5 cm ganglion cyst to dorsal aspect of left wrist. No skin erythema or evidence of infection. NEUROLOGICAL: Alert, awake, appropriate. No motor deficits in the lower extremities. Gait is normal without ataxia. PSYCHIATRIC: Cooperative. Good eye contact. Appropriate mood and affect. General Appearance: Yes: Nourished, Appropriately Dressed. No: Apparent Distress ED Treatment Course - RADIOLOGY Radiology Studies Ordered: Category Date Time Status WRIST W/HAND-LEFT* [RAD] Stat Radiology 03/17/19 11:55 Ordered Medical Decision Making - Medical Decision Making 03/17/19 12:21 Patient with history of multiple comorbidities on blood thinners present with complaint of swelling to back of left wrist upon wake this morning which is painful. Denies trauma or injury to rest. Denies numbness or tingling sensation to wrist or hand. Denies decreased movement or restricted wrist movement. Denies any other symptoms Exam significant for 5 cm ganglion cyst to dorsal aspect of left wrist which is fluctuant.. Range of motion of wrist and hand. Mild tenderness over ganglion cyst. No tenderness to hand, fingers or forearm. X-ray of left hand and wrist shows swelling over dorsal aspect of left wrist otherwise normal x-ray. Left wrist wrapped with Fuad bandage. Patient be discharged home on topical Voltaren gel for pain and swelling with advised to do hot compresses and orthopedic hand follow-up *DC/Admit/Observation/Transfer Diagnosis at time of Disposition: Ganglion cyst of dorsum of left wrist - Discharge Dispostion Disposition: HOME Condition at time of disposition: Stable Decision to Admit order: No - Prescriptions Prescriptions: Diclofenac Sodium [Voltaren] 1 applic TP Q8H PRN #1 tube PRN Reason: wrist pain and swelling - Referrals Referrals: Brijesh Husain MD [Staff Physician] - - Patient Instructions Printed Discharge Instructions: Ganglion Cyst, DI Ganglion Cyst Additional Instructions: Use prescribed medication as needed for pain and swelling. Apply warm compress to wrist 2-3 times a day as needed for swelling. Follow-up with Dr. Husain as discussed - Post Discharge Activity
== END 2019-03-17 12:25 | disposition home or self-care (01) ==
LOC: JERFT 11:47
DX: M67.432 Ganglion, left wrist (principal); I25.10 Atherosclerotic heart disease of native coronary artery without angina pectoris; I10 Essential (primary) hypertension; Z95.5 Presence of coronary angioplasty implant and graft; E11.9 Type 2 diabetes mellitus without complications; Z79.84 Long term (current) use of oral hypoglycemic drugs; E78.00 Pure hypercholesterolemia, unspecified; Z79.01 Long term (current) use of anticoagulants; K21.9 Gastro-esophageal reflux disease without esophagitis
CPT/HCPCS: 73110-TC-LT-FY; 73130-TC-LT-FY; 99282-25

== ENCOUNTER 2019-07-28 20:57 | Emergency (ER) | payer OTHER, MEDICARE ==
--- NOTE | 2019-07-28 21:00 | PDOC ---
Rapid Medical Evaluation Time Seen by Provider: 07/28/19 20:58 Medical Evaluation: Allergies Allergy/AdvReac Type Severity Reaction Status Date / Time Anesthetics - Roxanna Type- Allergy "deathly Verified 03/17/19 11:53 Parabens sick-vomitting" No Known Drug Allergies Allergy Verified 03/17/19 11:53 07/28/19 20:58 HPI: Mechanical fall hit head; no symptoms on anticoagulation PE: No gross deficits ORDERS: CT Head Discharge Disposition - Diagnosis Head injury - Referrals - Patient Instructions - Post Discharge Activity
--- NOTE | 2019-07-28 21:11 | PDOC ---
History of Present Illness - General Chief Complaint: Injury Stated Complaint: FALL/HIT FOREHEAD Time Seen by Provider: 07/28/19 20:58 History Source: Patient - History of Present Illness Initial Comments: 07/28/19 22:09 74 year old female tripped and fall fell forward hit head and chest at 7.30 pm. patient denies headache, dizziness, nausea, no vomiting. patient is currently on plavix PMHX: htn, dm, hypercholestermia, cardiac stent, anemia 07/28/19 22:59 Past History - Past Medical History Allergies/Adverse Reactions: Allergies Allergy/AdvReac Type Severity Reaction Status Date / Time Anesthetics - Roxanna Type- Allergy "deathly Verified 03/17/19 11:53 Parabens sick-vomitting" No Known Drug Allergies Allergy Verified 03/17/19 11:53 Home Medications: Ambulatory Orders Aspirin Coated [Ecotrin -] 81 mg PO DAILY 03/24/14 Clopidogrel Bisulfate [Plavix -] 75 mg PO DAILY 03/24/14 Metoprolol Tartrate [Lopressor -] 25 mg PO BID 03/24/14 Pravastatin Sodium 25 mg PO HS 03/24/14 Sitagliptin Phos/Metformin HCl [Janumet 50-500 mg Tablet] 1 tab PO BID 08/30/14 Olmesartan Medoxomil [Benicar -] 40 mg PO DAILY #30 tablet 02/25/16 Dexlansoprazole [Dexilant -] 1 tab PO DAILY 12/30/17 Fenofibrate Nanocrystallized [Triglide] 160 mg PO DAILY 12/30/17 Diclofenac Sodium [Voltaren] 1 applic TP Q8H PRN #1 tube 03/17/19 Anemia: Yes Asthma: No Cancer: No Cardiac Disorders: Yes (CAD) CVA: No COPD: No CHF: No Dementia: No Diabetes: Yes GI Disorders: Yes (ACID REFLUX) Disorders: No HTN: Yes Hypercholesterolemia: Yes Liver Disease: No Seizures: No Thyroid Disease: No - Surgical History Abdominal Surgery: No Appendectomy: No Cardiac Surgery: Yes (stent x1) Cholecystectomy: No Lung Surgery: No Neurologic Surgery: No Orthopedic Surgery: Yes (L KNEE ARTHROSCOPY,L KNEE REPLAC.,BILAT. RTC REPAIR) - Immunization History Immunization Up to Date: Yes - Psycho Social/Smoking Cessation Hx Smoking History: Former smoker Have you smoked in the past 12 months: No If you are a former smoker, when did you quit?: 1969 Information on smoking cessation initiated: No Hx Alcohol Use: No Drug/Substance Use Hx: No Substance Use Type: None Hx Substance Use Treatment: No Review of Systems - Review of Systems Able to Perform ROS?: Yes Is the patient limited Indonesian proficient: No Constitutional: No: Symptoms Reported, See HPI, Chills, Diaphoresis, Fever, Loss of Appetite, Malaise, Night Sweats, Weakness, Weight Stable, Unintentional Wgt. Loss, Unexplained wgt Loss, Other Neurological: Yes: Other (head injury) *Physical Exam - Vital Signs Last Vital Signs Temp Pulse Resp BP Pulse Ox 97.4 F L 61 20 140/55 L 100 07/28/19 21:03 07/28/19 21:03 07/28/19 21:03 07/28/19 21:03 07/28/19 21:03 - Physical Exam General Appearance: Yes: Appropriately Dressed, Other (normocephalic) Respiratory/Chest: positive: Chest Tender (left soide rib tenderness), Lungs Clear, Normal Breath Sounds Cardiovascular: positive: Regular Rhythm, Regular Rate Extremity: positive: Normal Capillary Refill, Normal Inspection, Normal Range of Motion Integumentary: positive: Normal Color, Dry, Warm ED Progress Note - Progress Note Progress Note: 07/28/19 22:58 A: head injury P: head CT, c-spine ribs Medical Decision Making - Medical Decision Making 07/28/19 23:02 CT head: : Mild chronic microvascular ischemic changes. Moderate age related involutional changes. The study is otherwise unremarkable. No calvarial, facial or skull base fractures imaged on the current exam. No intracranial hemorrhages or brain parenchymal contusion injuries. 07/28/19 23:08 CT neckThere are no cervical spine fractures or dislocations. There is no evidence of prevertebral soft tissue swelling. Bone mineralization appears normal. The craniocervical junction appears normal. The vertebral body heights, alignments and normal cervical lordotic curve are well-maintained. The apophyseal joints appear normal. Ribs and chest xray: negative for fracture official report pending Discharge - Discharge Information Problems reviewed: Yes Clinical Impression/Diagnosis: Rib pain on left side Head injury Qualifiers: Encounter type: initial encounter Qualified Code(s): S09.90XA - Unspecified injury of head, initial encounter Disposition: HOME - Follow up/Referral Referrals: Bobby Hansen MD [Primary Care Provider] - - Patient Discharge Instructions Patient Printed Discharge Instructions: How to Prevent Falls Additional Instructions: rest and relax as much as possible. you may tylenol for bodyaches return to the ER for any worsening symptoms. - Post Discharge Activity
[2019-07-28 21:20] VITALS: BP 140/55; PULSE 61; TEMP 97.4; BMI 30.2
== END 2019-07-28 23:31 | disposition home or self-care (01) ==
LOC: JER 20:57
DX: S09.90XA Unspecified injury of head, initial encounter (principal); R07.81 Pleurodynia; W18.39XA Other fall on same level, initial encounter; Y93.89 Activity, other specified; Y92.89 Other specified places as the place of occurrence of the external cause; Z88.8 Allergy status to other drugs, medicaments and biological substances; I25.10 Atherosclerotic heart disease of native coronary artery without angina pectoris; D64.9 Anemia, unspecified; K21.9 Gastro-esophageal reflux disease without esophagitis; E78.00 Pure hypercholesterolemia, unspecified; I10 Essential (primary) hypertension; Z95.5 Presence of coronary angioplasty implant and graft; Z87.891 Personal history of nicotine dependence
CPT/HCPCS: 70450-TC; 71046-TC-FY; 71111-TC-FY; 72125-TC; 99281-25

== ENCOUNTER 2020-02-23 12:07 | Inpatient (IN) | payer OTHER, MEDICARE ==
--- NOTE | 2020-02-23 12:11 | PDOC ---
Rapid Medical Evaluation Chief Complaint: Injury Time Seen by Provider: 02/23/20 12:09 Medical Evaluation: Allergies Allergy/AdvReac Type Severity Reaction Status Date / Time Anesthetics - Roxanna Type- Allergy "deathly Verified 03/17/19 11:53 Parabens sick-vomitting" No Known Drug Allergies Allergy Verified 03/17/19 11:53 02/23/20 12:09 I performed a brief in-person evaluation of this patient. Pt is a 74 y/o female who tripped off a curb leaving the grocery store, hit head and sustained a laceration to the L eyebrow. She denies any LOC. She is on blood thinners. Pertinent physical exam findings: blood stained bandage to the L eyebrow, speaking in full and complete sentences. I have ordered the following: ct head Patient to proceed to ED for further evaluation. Discharge Disposition - Diagnosis Head injury - Referrals Referrals: Bobby Hansen MD [Primary Care Provider] - - Patient Instructions - Post Discharge Activity
--- NOTE | 2020-02-23 12:51 | PDOC ---
History of Present Illness - General Chief Complaint: Injury Stated Complaint: Laceration Time Seen by Provider: 02/23/20 12:09 - History of Present Illness Initial Comments: 02/23/20 12:51 HPI: 74 y/o F with hx of HTN, DM, CAD on ASA/Plavix, chronic left shoulder injury BIBEM with BHT and no LOC. Patient was with family going to the grocery store when she stumbled tripping on the pavement. She fell on her left side and susta ined a laceration to her left brow. On arrival to the ED, patient was alert and oriented. She reports pain at the site of her wound and in her left wrist. She is unable to recall the events however family reported there was no LOC and witnessed the fall. She denies [place], LH, dizziness, chest pain, SOB, palp, abd pain, n/v, dysuria, weakness, numbness/tingling, seizure, incontinence, tongue bite PMHx: as noted above ROS: as noted SHx: Denies tobacco use; no alcohol use; no rec drugs Allergies: NKDA ROS: GENERAL/CONSTITUTIONAL: No fever or chills. No weakness. HEAD, EYES, EARS, NOSE AND THROAT: No change in vision. No ear pain or discharge. No sore throat. CARDIOVASCULAR: No chest pain or shortness of breath RESPIRATORY: No cough, wheezing, or hemoptysis. GASTROINTESTINAL: No nausea, vomiting, diarrhea or constipation. GENITOURINARY: No dysuria, frequency, or change in urination. MUSCULOSKELETAL: +left wrist pain and edema SKIN: +left brow lac and ecchymosis NEUROLOGIC: No headache, vertigo, loss of consciousness, or change in strength/sensation. ENDOCRINE: No increased thirst. No abnormal weight change HEMATOLOGIC/LYMPHATIC: No anemia, easy bleeding, or history of blood clots. ALLERGIC/IMMUNOLOGIC: No hives or skin allergy. PE: GENERAL: Awake, alert, and fully oriented, no acute distress HEAD: +left brow stellate laceration with active bleeding EYES: EOMI, left periorbital ecchymosis, left eye white cataract, PERRLA, left eye with no vision (baseline), right eye with no trauma ENT: Auricles normal inspection, hearing grossly normal, nares patent, oropharynx clear without exudates. Moist mucosa, no tongue laceration NECK: Normal ROM, no lymphadenopathy LUNGS: No increased work of breathing, symmetrical chest rise, clear to auscultation bilaterally, no wheezes, crackles or rhonchi HEART: Regular rate, regular rhythm, normal S1 and S2, no murmur, peripheral pulses 2+ and equal bilaterally. ABDOMEN: Soft, nondistended, nontender. No guarding, no rebound. No masses. No CVAT MUSCULOSKELETAL: FROM, left wrist edema and ttp at radial head but FROM with pain on motion NEUROLOGICAL: Cranial nerves II through XII grossly intact. Normal speech, normal gait, no focal sensorimotor deficits SKIN: Warm, Dry, normal turgor, no rashes or lesions noted Past History - Medical History Allergies/Adverse Reactions: Allergies Allergy/AdvReac Type Severity Reaction Status Date / Time Anesthetics - Roxanna Type- Allergy "deathly Verified 02/23/20 12:11 Parabens sick-vomitting" No Known Drug Allergies Allergy Verified 02/23/20 12:11 Home Medications: Ambulatory Orders Aspirin Coated [Ecotrin -] 81 mg PO DAILY 03/24/14 Clopidogrel Bisulfate [Plavix -] 75 mg PO DAILY 03/24/14 Metoprolol Tartrate [Lopressor -] 25 mg PO BID 03/24/14 Pravastatin Sodium 25 mg PO HS 03/24/14 Sitagliptin Phos/Metformin HCl [Janumet 50-500 mg Tablet] 1 tab PO BID 08/30/14 Olmesartan Medoxomil [Benicar -] 40 mg PO DAILY #30 tablet 02/25/16 Dexlansoprazole [Dexilant -] 1 tab PO DAILY 12/30/17 Fenofibrate Nanocrystallized [Triglide] 160 mg PO DAILY 12/30/17 Diclofenac Sodium [Voltaren] 1 applic TP Q8H PRN #1 tube 03/17/19 Anemia: Yes Asthma: No Cancer: No Cardiac Disorders: Yes (CAD) CVA: No COPD: No CHF: No Dementia: No Diabetes: Yes GI Disorders: Yes (ACID REFLUX) Disorders: No HTN: Yes Hypercholesterolemia: Yes Liver Disease: No Seizures: No Thyroid Disease: No - Surgical History Abdominal Surgery: No Appendectomy: No Cardiac Surgery: Yes (stent x1) Cholecystectomy: No Lung Surgery: No Neurologic Surgery: No Orthopedic Surgery: Yes (L KNEE ARTHROSCOPY,L KNEE REPLAC.,BILAT. RTC REPAIR) - Immunization History Immunization Up to Date: Yes - Psycho-Social/Smoking History Smoking History: Never smoked Have you smoked in the past 12 months: No If you are a former smoker, when did you quit?: 1993 - Substance Abuse Hx (Audit-C & DAST Scrn) How often the patient has a drink containing alcohol: Never Score: In Men: 4 or > Positive; In Women: 3 or > Positive: 0 Screen Result (Pos requires Nsg. Audit-10AR): Negative *Physical Exam - Vital Signs Last Vital Signs Temp Pulse Resp BP Pulse Ox 97.8 F 71 18 155/73 96 02/23/20 12:09 02/23/20 12:09 02/23/20 12:09 02/23/20 12:09 02/23/20 12:09 ED Treatment Course - LABORATORY CBC & Chemistry Diagram: 02/23/20 13:30 02/23/20 13:30 Medical Decision Making - Medical Decision Making 02/23/20 19:16 74 y/o F with hx of HTN, DM, CAD on ASA/Plavix, chronic left shoulder injury BIBEM with BHT and no LOC and subsequent left brow laceration and left wrist pain. VSS, AF. PE with left brow stellate laceration and left wrist edema with pain on ROM. -CT head, CT neck, CT facial, cbc, cmp, card prof, coags, mg, ua, ekg, cxr -ivf, pain control 02/23/20 19:18 CT head and neck with no acute pathology; 1 cm left thyroid lobe nodule for which a nonemergent ultrasound is needed CT facial: CT scan of the facial bones without intravenous contrast. Coronal and sagittal reconstruction images were obtained. No gross fracture is identified. Both orbits are intact .. The left eye globe demonstrates a slightly oval- shaped. No retrobulbar abnormal attenuation is identified. There is moderate left periorbital soft tissue swelling, mainly laterally. Both TM joints are intact and in satisfactory alignment. Note is made of a 4 mm osteoma the right ethmoid air cells. The rest of the paranasal sinuses are well aerated. Bilateral upper neck and submandibular subcentimeter lymph nodes are present which are nonspecific Visualized intracranial contents demonstrate some neqs-ot-tmejqnvy volume loss and ventricular dilatation. Included portion of the neck and airway appear unremarkable. Small to moderate size calcified plaques at the right common carotid bifurcation and tiny calcified plaques on the left IMPRESSION: Both orbits are intact. The left eye globe demonstrates an oval-shaped with questionable faint increased attenuation seen posteriorly/superiorly. Ophthalmology consult is needed to rule out any intraorbital hemorrhage. Moderate left periorbital soft tissue swelling, mainly laterally with a tiny air pockets suggestive of a skin laceration Discussed with patient's [address] Frederick and Dr Sanchez (laborer demolition for Dr Medina); discussed findings and clinical scenario as well as concern for intraorbital hemorrhage. 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, intraorbital hemorrhage does not pose additional risk for vision; Dr Sanchez states that Dr Medina will be in the clinic tomorrow from 10a-2p and will see the patient in the clinic Will admit the patient for obs and rpt 24 CT head; PATIENT MUST BE SEEN IN CLINIC TOMORROW BY 2PM FOR RE-EVALUATION OF LEFT EYE AND RIGHT EYE TO COMPLETE EVALUATION admitted to Dr Carter and discussed lengthy discussion i had with both ophthalmologists Discharge - Discharge Information Problems reviewed: Yes Clinical Impression/Diagnosis: Head injury Condition: Stable - Admission Yes - Follow up/Referral Referrals: Bobby Hansen MD [Primary Care Provider] - - Patient Discharge Instructions - Post Discharge Activity
[2020-02-23 13:47] LABS: BASO % 0.8 % (0-2.0); EOS % 1.9 % (0-4.5); HEMATOCRIT 29.7 % (32.4-45.2); HEMOGLOBIN 10.1 GM/dL (10.7-15.3); LYMPH % 10.5 % (8-40); MCH 29.9 pg (25.7-33.7); MEAN CELL VOLUME 87.7 fl (80-96); MEAN PLT VOLUME 6.6 fl (7.5-11.1); MONO % 7.7 % (3.8-10.2); NEUT % 79.1 % (42.8-82.8); PLATELET COUNT 426 K/MM3 (134-434); RBC 3.38 M/mm3 (3.60-5.2); RDW 14.6 % (11.6-15.6); WHITE BLOOD COUNT 10.2 K/mm3 (4.0-10.0)
[2020-02-23 13:52] LABS: INR 0.93 (0.83-1.09)
[2020-02-23 13:55] LABS: ACTIVATED PTT 27.9 SECONDS (25.2-36.5)
[2020-02-23 14:16] LABS: ALBUMIN 3.9 g/dl (3.4-5.0); ALK PHOS 99 U/L (45-117); ANION GAP 8 MMOL/L (8-16); BILIRUBIN,TOTAL 0.4 mg/dL (0.2-1); BLOOD UREA NITROGEN 8.6 mg/dL (7-18); CALCIUM 9.2 mg/dL (8.5-10.1); CHLORIDE 97 mmol/L (98-107); CO2 26 mmol/L (21-32); CREATININE 0.7 mg/dL (0.55-1.3); GLUCOSE,RANDOM 127 mg/dL (74-106); MAGNESIUM 1.9 mg/dL (1.8-2.4); SGOT/AST 19 U/L (15-37); SGPT/ALT 33 U/L (13-61); SODIUM 131 mmol/L (136-145); TOT PROT 6.7 g/dl (6.4-8.2)
--- NOTE | 2020-02-23 15:59 | PDOC ---
Documentation entered by Phyllis Murray SCRIBE, acting as scribe for Federica Torres MD. Federica Torres MD: This documentation has been prepared by the Trevor stapleton Sydney, SCRIBE, under my direction and personally reviewed by me in its entirety. I confirm that the documentation accurately reflects all work, treatment, procedures, and medical decision making performed by me. Attending Attestation - Resident Resident Name: Brenda Hu - ED Attending Attestation I have performed the following: I have examined & evaluated the patient, The case was reviewed & discussed with the resident, I agree w/resident's findings & plan, Exceptions are as noted - HPI HPI: 02/23/20 15:44 Patient is a 74 year old female with a significant past medical history of HTN, HLD, DM, CAD who presents to the ED s/p fall. Patient reports she was at the grocery store with her daughter when she fell after tripping and sustained a laceration on her left forehead. Pt is on plavix for her "heart." Patient denies any associated fever, chills, dizziness, shortness of breath, palpitations, or chest pain. Denies any other symptoms. Allergies: NKDA - Physicial Exam PE: 02/23/20 15:29 Agree with resident exam - Medical Decision Making 02/23/20 15:54 74yo F presents to the ED with mechanical trip and fall with head trauma +lac, unclear last tdap, will update No other evidence of trauma Plan for labs, XR, cth, c-spine, facial bones. If CTH negative, will admit for rpt study in case of delayed bleeding 2/2 plavix 02/23/20 16:34 CTH negative for acute pathology CT facial bones with possible L retrobulbar blood. Pt is blind in this eye, will discuss with ophthalmology. Case signed out to evening attending for further mgmt and admission for reimag ing. Heart Score/ECG Review #1 02/23/20 15:57 EKG read and int by me: NSR, rate 69, normal axis and intervals. No PAKO or TWI Discharge - Discharge Information Problems reviewed: Yes Clinical Impression/Diagnosis: Head injury Condition: Good Disposition: VNS/HOME HEALTH CARE - Follow up/Referral - Patient Discharge Instructions - Post Discharge Activity
--- NOTE | 2020-02-23 17:33 | EKG ---
Test Reason : Blood Pressure : / mmHG Vent. Rate : 069 BPM Atrial Rate : 069 BPM P-R Int : 152 ms QRS Dur : 082 ms QT Int : 392 ms P-R-T Axes : 046 047 032 degrees QTc Int : 420 ms NORMAL SINUS RHYTHM NORMAL ECG WHEN COMPARED WITH ECG OF 09-OCT-2018 07:58, PREMATURE VENTRICULAR COMPLEXES ARE NO LONGER PRESENT Confirmed by PORSCHE CONKLIN MD ([id number]) on 02/23/2020 5:33:49 PM Referred By: Confirmed By:PORSCHE CONKLIN MD
[2020-02-24] MEDS ORDERED: ACETAMINOPHEN 1000 MG/100 ML VIAL (NON FORMULARY) IVPB ONE (05:44)
[2020-02-24] MEDS ORDERED: ACETAMINOPHEN INJECTION 100 ML IVPB ONE (05:46)
[2020-02-24] MEDS: metFORMIN HCL 500 MG TABLET (FP) PO SCH ×2 (08:00→18:18)
[2020-02-24] MEDS ORDERED: metFORMIN HCL 500 MG TABLET (FP) ONE (08:12)
[2020-02-24 08:28] LABS: BASO % 0.5 % (0-2.0); EOS % 1.4 % (0-4.5); HEMATOCRIT 27.9 % (32.4-45.2); HEMOGLOBIN 9.3 GM/dL (10.7-15.3); LYMPH % 9.2 % (8-40); MCH 29.4 pg (25.7-33.7); MCHC 33.5 g/dl (32.0-36.0); MEAN CELL VOLUME 87.7 fl (80-96); MONO % 8.8 % (3.8-10.2); NEUT % 80.1 % (42.8-82.8); PLATELET COUNT 417 K/MM3 (134-434); RBC 3.18 M/mm3 (3.60-5.2); RDW 14.7 % (11.6-15.6)
[2020-02-24 09:05] LABS: ALBUMIN 3.6 g/dl (3.4-5.0); BLOOD UREA NITROGEN 9.5 mg/dL (7-18); CALCIUM 8.7 mg/dL (8.5-10.1); POTASSIUM 4.4 mmol/L (3.5-5.1)
[2020-02-24 09:08] LABS: BILIRUBIN,TOTAL 0.7 mg/dL (0.2-1); CREATININE 0.7 mg/dL (0.55-1.3); TOT PROT 6.4 g/dl (6.4-8.2)
[2020-02-24] MEDS ORDERED: CLOPIDOGREL BISULFATE 75 MG TABLET (FP) ONE (09:14)
[2020-02-24] MEDS ORDERED: METOPROLOL TARTRATE 25 MG TABLET (FP) ONE (09:14)
[2020-02-24] MEDS ORDERED: ASPIRIN COATED 81 MG TABLET.EC ONE (09:14)
[2020-02-24] MEDS ORDERED: ASPIRIN COATED 81 MG TABLET.EC PO SCH (10:00)
[2020-02-24] MEDS ORDERED: CLOPIDOGREL BISULFATE 75 MG TABLET (FP) PO SCH (10:00)
[2020-02-24] MEDS: METOPROLOL TARTRATE 25 MG TABLET (FP) PO SCH ×2 (10:18→21:02)
[2020-02-24] MEDS: FENOFIBRIC ACID 135 MG CAP PO SCH (10:18)
[2020-02-24 12:05] VITALS: BMI 30.2
--- NOTE | 2020-02-24 12:35 | CON.ID ---
Consult Consult Specialty:: infectious diseases Referred by:: Reason for Consultation:: fall,injury to the left eyebrow - History of Present Illness Chief Complaint: passing out and fall and injury to left eye brow History of Present Illness: 74 y/o F with hx of HTN, DM, CAD on ASA/Plavix, chronic left shoulder injury BIBEM with BHT and no LOC. Patient was with family going to the grocery store when she stumbled tripping on the pavement. She fell on her left side and sustained a laceration to her left brow. On arrival to the ED, patient was alert and oriented. She reports pain at the site of her wound and in her left wrist. She is unable to recall the events however family reported there was no LOC and witnessed the fall. She denies [place], LH, dizziness, chest pain, SOB, palp, abd pain, n/v, dysuria, weakness, numbness/tingling, seizure, incontinence, tongue bite the above was the history of the patient patient mentions that she does not know exactly what happened and how did she fall she has a racoon eye on the left side - History Source History Provided By: Patient Limitations to Obtaining History: No Limitations - Past Medical History Cardio/Vascular: Yes: CAD, CHF, HTN, Hyperlipdemia Gastrointestinal: Yes: Gastritis ...: No Psych: Yes: Anxiety Musculoskeletal: Yes: Chronic low back pain - Past Surgical History Past Surgical History: Yes: Cataract Removal, Joint Replacement (knee), Stent (coronary; ureteral) - Alcohol/Substance Use Hx Alcohol Use: No - Smoking History Smoking history: Never smoked Have you smoked in the past 12 months: No If you are a former smoker, when did you quit?: 1993 - Social History Usual Living Arrangement: With Child ADL: Independent History of Recent Travel: No Home Medications - Allergies Allergies/Adverse Reactions: Allergies Allergy/AdvReac Type Severity Reaction Status Date / Time Anesthetics - Roxanna Type- Allergy "deathly Verified 02/23/20 12:11 Parabens sick-vomitting" No Known Drug Allergies Allergy Verified 02/23/20 12:11 - Home Medications Home Medications: Ambulatory Orders Aspirin Coated [Ecotrin -] 81 mg PO DAILY 03/24/14 Clopidogrel Bisulfate [Plavix -] 75 mg PO DAILY 03/24/14 Metoprolol Tartrate [Lopressor -] 25 mg PO BID 03/24/14 Pravastatin Sodium 25 mg PO HS 03/24/14 Dexlansoprazole [Dexilant -] 1 tab PO DAILY 12/30/17 Review of Systems - Review of Systems Constitutional: reports: No Symptoms Eyes: reports: No Symptoms HENT: reports: No Symptoms Neck: reports: No Symptoms Cardiovascular: reports: No Symptoms Respiratory: reports: No Symptoms Gastrointestinal: reports: No Symptoms Genitourinary: reports: No Symptoms Musculoskeletal: reports: No Symptoms Integumentary: reports: Bruising Neurological: reports: Change in LOC, Syncope Endocrine: reports: No Symptoms Hematology/Lymphatic: reports: No Symptoms Psychiatric: reports: No Symptoms Physical Exam Vital Signs: Vital Signs Temperature 98.6 F 02/24/20 11:46 Pulse Rate 77 02/24/20 11:46 Respiratory Rate 20 02/24/20 11:46 Blood Pressure 144/71 02/24/20 11:46 O2 Sat by Pulse Oximetry (%) 97 02/24/20 06:36 Constitutional: Yes: Calm, Mild Distress Eyes: Yes: Conjunctiva Clear HENT: Yes: Other (left racoon eye, wound to the left eyebrow stiched) Neck: Yes: Supple, Trachea Midline Cardiovascular: Yes: Regular Rate and Rhythm Respiratory: Yes: Regular, CTA Bilaterally Gastrointestinal: Yes: Normal Bowel Sounds, Soft Musculoskeletal: Yes: WNL Extremities: Yes: WNL Wound/Incision: Yes: Dressing Dry and Intact, Other Neurological: Yes: Alert, Oriented Psychiatric: Yes: Alert, Oriented Labs: CBC, BMP 02/24/20 07:00 02/24/20 07:00 Imaging - Results Chest X-ray: Report Reviewed, Image Reviewed Cat Scan: Report Reviewed, Image Reviewed Assessment/Plan this patient with multiple medical issues coming in with laceration of the left eye and subdural hemorrhage wound looks clean at the moment i will not start any abx neurosurgery to have a look at the moment wound care close watch monitor neurological signs rest as per the team monitor wbc
--- NOTE | 2020-02-24 15:12 | HP ---
Admitting History and Physical - Admission History of Present Illness: 74 y/o F with hx of HTN, DM, CAD on ASA/Plavix, chronic left shoulder injury BIBEM with BHT and no LOC. Patient was with family going to the grocery store when she stumbled tripping on the pavement. She fell on her left side and sustained a laceration to her left brow. On arrival to the ED, patient was alert and oriented. She reports pain at the site of her wound and in her left wrist. She is unable to recall the events however family reported there was no LOC and witnessed the fall. - Past Medical History Cardiovascular: Yes: CAD, CHF, HTN, Hyperlipdemia Gastrointestinal: Yes: Gastritis ...: No Psych: Yes: Anxiety Musculoskeletal: Yes: Chronic low back pain - Past Surgical History Past Surgical History: Yes: Cataract Removal, Joint Replacement (knee), Stent (coronary; ureteral) - Smoking History Smoking history: Never smoked Have you smoked in the past 12 months: No If you are a former smoker, when did you quit?: 1993 - Alcohol/Substance Use Hx Alcohol Use: No - Social History ADL: Independent History of Recent Travel: No Home Medications - Allergies Allergies/Adverse Reactions: Allergies Allergy/AdvReac Type Severity Reaction Status Date / Time Anesthetics - Roxanna Type- Allergy "deathly Verified 02/23/20 12:11 Parabens sick-vomitting" No Known Drug Allergies Allergy Verified 02/23/20 12:11 - Home Medications Home Medications: Ambulatory Orders Aspirin Coated [Ecotrin -] 81 mg PO DAILY 03/24/14 Clopidogrel Bisulfate [Plavix -] 75 mg PO DAILY 03/24/14 Metoprolol Tartrate [Lopressor -] 25 mg PO BID 03/24/14 Pravastatin Sodium 25 mg PO HS 03/24/14 Dexlansoprazole [Dexilant -] 1 tab PO DAILY 12/30/17 Family Medical History Family History: Unremarkable Review of Systems - Review of Systems Neck: reports: No Symptoms Cardiovascular: reports: No Symptoms Respiratory: reports: No Symptoms Gastrointestinal: reports: No Symptoms Genitourinary: reports: No Symptoms Physical Examination Vital Signs: Vital Signs Temperature 98.6 F 02/24/20 11:46 Pulse Rate 77 02/24/20 11:46 Respiratory Rate 20 02/24/20 11:46 Blood Pressure 144/71 06/26/20 11:46 O2 Sat by Pulse Oximetry (%) 97 02/24/20 06:36 Eyes: Yes: Other (Lt periorbital eccyhmosis) Neck: Yes: WNL, Supple Cardiovascular: Yes: WNL, Regular Rate and Rhythm Respiratory: Yes: WNL, Regular, CTA Bilaterally Gastrointestinal: Yes: WNL, Normal Bowel Sounds, Soft Musculoskeletal: Yes: WNL Extremities: Yes: WNL Edema: No Neurological: Yes: WNL, Alert, Oriented ...Motor Strength: WNL Labs: CBC, BMP 02/24/20 07:00 02/24/20 07:00 Problem List - Problems (1) Head injury Assessment/Plan: Lt eye ecchymosis Follow up repeat ct scan head Neurochecks NSG/ophthalmology consult Code(s): S09.90XA - UNSPECIFIED INJURY OF HEAD, INITIAL ENCOUNTER (2) CAD (coronary artery disease) Code(s): I25.10 - ATHSCL HEART DISEASE OF [place] CORONARY ARTERY W/O ANG PCTRS (3) Diabetes Assessment/Plan: Cont metformin/januvia Code(s): E11.9 - TYPE 2 DIABETES MELLITUS WITHOUT COMPLICATIONS Qualifiers: Diabetes mellitus type: type 2 (4) HTN (hypertension) Code(s): I10 - ESSENTIAL (PRIMARY) HYPERTENSION (5) Hyperlipidemia Code(s): E78.5 - HYPERLIPIDEMIA, UNSPECIFIED
--- NOTE | 2020-02-24 17:29 | CON.NEURO ---
Consult Consult Specialty:: [facility] Referred by:: ER Reason for Consultation:: Hematoma - History of Present Illness History of Present Illness: 74 yeras old woman with PMH CAD OA HTN on antiplatelet ASA and Plavix and came in with fall Patient with no CP or loc Patient had a sceond Ct which showed smallle xtraxial Admitted for montior Milkd headache an ddizzness This never happened before !!! - History Source History Provided By: Patient, Medical Record Limitations to Obtaining History: Clinical Condition - Past Medical History Cardio/Vascular: Yes: CAD, CHF, HTN, Hyperlipdemia Gastrointestinal: Yes: Gastritis ...: No Psych: Yes: Anxiety Musculoskeletal: Yes: Chronic low back pain - Past Surgical History Past Surgical History: Yes: Cataract Removal, Joint Replacement (knee), Stent (coronary; ureteral) - Alcohol/Substance Use Hx Alcohol Use: No - Smoking History Smoking history: Never smoked Have you smoked in the past 12 months: No If you are a former smoker, when did you quit?: 1993 - Social History Usual Living Arrangement: With Child ADL: Independent History of Recent Travel: No Home Medications - Allergies Allergies/Adverse Reactions: Allergies Allergy/AdvReac Type Severity Reaction Status Date / Time Anesthetics - Roxanna Type- Allergy "deathly Verified 02/23/20 12:11 Parabens sick-vomitting" No Known Drug Allergies Allergy Verified 02/23/20 12:11 - Home Medications Home Medications: Ambulatory Orders Aspirin Coated [Ecotrin -] 81 mg PO DAILY 03/24/14 Clopidogrel Bisulfate [Plavix -] 75 mg PO DAILY 03/24/14 Metoprolol Tartrate [Lopressor -] 25 mg PO BID 03/24/14 Pravastatin Sodium 25 mg PO HS 03/24/14 Dexlansoprazole [Dexilant -] 1 tab PO DAILY 12/30/17 Family Medical History Family History: Unable to Obtain Review of Systems - Review of Systems Neurological: reports: Dizziness, Headache, Incoordination Physical Exam-Neuro Vital Signs: Vital Signs Temperature 97.8 F 02/24/20 14:00 Pulse Rate 88 02/24/20 14:00 Respiratory Rate 20 02/24/20 14:00 Blood Pressure 123/68 02/24/20 14:00 O2 Sat by Pulse Oximetry (%) 97 02/24/20 06:36 Constitutional: Yes: Well Nourished Neck: Yes: WNL Cardiovascular: Yes: WNL Labs: CBC, BMP 02/24/20 07:00 02/24/20 07:00 INR, PTT INR 0.93 (0.83-1.09) 02/23/20 13:30 - Neuro Exam Level Of Consciousness: Yes: Oriented to Person, Oriented to Place, Oriented to Time Eyes: Yes: PERRLA Speech: WNL Dominant Hand: Right Cranial Nerves II-XII Intact: Yes Gag: Present DTR's: 1+ Left Bicep, 1+ Right Bicep, 1+ Left Tricep, 1+ Right Tricep, 1+ Left Brachioradialis Response to light touch: Normal Response to pain prick: Normal Response to temperature: Normal Response to vibration: Normal Motor Strength: 3/5: Left Arm, Right Arm, Left Leg, Right Leg Gait: Deferred Imaging - Results Cat Scan: Image Reviewed Problem List - Problems (1) Epidural hematoma Assessment/Plan: Mechanical fall Fall precaution Keppra 250 po qd Neuro check s Repeat the Ct head in 24 hours Seziure precautions Nael Ren M.D., MSc [facility] [address] [place] [address] Office Code(s): S06.4X9A - EPIDURAL HEMORRHAGE W LOC OF UNSP DURATION, INIT
[2020-02-25] MEDS: metFORMIN HCL 500 MG TABLET (FP) PO SCH ×2 (06:15→16:31)
[2020-02-25] MEDS: FENOFIBRIC ACID 135 MG CAP PO SCH (09:38)
[2020-02-25] MEDS: METOPROLOL TARTRATE 25 MG TABLET (FP) PO SCH ×2 (09:38→22:05)
--- NOTE | 2020-02-25 10:30 | PN ---
Progress Note, Physician History of Present Illness: stable no new issues - Current Medication List Current Medications: Active Medications Fenofibric Acid (Trilipix -) 135 mg PO DAILY [facility] Last Admin: 02/25/20 09:38 Dose: 135 mg Documented by: Metformin HCl (Glucophage -) 1,000 mg PO BIDAC [facility] Last Admin: 02/25/20 06:15 Dose: 1,000 mg Documented by: Metoprolol Tartrate (Lopressor -) 25 mg PO BID [facility] Last Admin: 02/25/20 09:38 Dose: 25 mg Documented by: Sitagliptin Phosphate (Januvia -) 100 mg PO ACBK [facility] Last Admin: 02/25/20 06:15 Dose: 100 mg Documented by: - Objective Vital Signs: Vital Signs Temperature 98.4 F 02/25/20 08:45 Pulse Rate 84 02/25/20 08:45 Respiratory Rate 18 02/25/20 08:45 Blood Pressure 140/74 02/25/20 08:45 O2 Sat by Pulse Oximetry (%) 97 02/24/20 21:00 Constitutional: Yes: No Distress, Calm Cardiovascular: Yes: S1, S2 Respiratory: Yes: Regular, CTA Bilaterally Gastrointestinal: Yes: Normal Bowel Sounds, Soft Musculoskeletal: Yes: WNL Extremities: Yes: WNL Neurological: Yes: Alert Labs: CBC, BMP 02/24/20 07:00 02/24/20 07:00 INR, PTT INR 0.93 (0.83-1.09) 02/23/20 13:30 Assessment/Plan this patient with multiple medical issues coming in with laceration of the left eye and subdural hemorrhage wound looks clean at the moment i will not start any abx neurosurgery to have a look at the moment wound care close watch monitor neurological signs rest as per the team monitor wbc
[2020-02-25] MEDS: PANTOPRAZOLE 40 MG TABLET PO SCH (12:07)
[2020-02-25] MEDS: levETIRAcetam 250 MG TABLET PO SCH (14:32)
--- NOTE | 2020-02-25 20:44 | PN ---
Progress Note, Physician History of Present Illness: No new complaints - Current Medication List Current Medications: Active Medications Fenofibric Acid (Trilipix -) 135 mg PO DAILY [facility] Last Admin: 02/25/20 09:38 Dose: 135 mg Documented by: Levetiracetam (Keppra -) 250 mg PO DAILY [facility] Last Admin: 02/25/20 14:32 Dose: 250 mg Documented by: Metformin HCl (Glucophage -) 1,000 mg PO BIDAC [facility] Last Admin: 02/25/20 16:31 Dose: 1,000 mg Documented by: Metoprolol Tartrate (Lopressor -) 25 mg PO BID [facility] Last Admin: 02/25/20 09:38 Dose: 25 mg Documented by: Pantoprazole Sodium (Protonix -) 40 mg PO DAILY [facility] Last Admin: 02/25/20 12:07 Dose: 40 mg Documented by: Sitagliptin Phosphate (Januvia -) 100 mg PO ACBK [facility] Last Admin: 02/25/20 06:15 Dose: 100 mg Documented by: - Objective Vital Signs: Vital Signs Temperature 97.4 F L 02/25/20 18:00 Pulse Rate 86 02/25/20 18:00 Respiratory Rate 18 02/25/20 18:00 Blood Pressure 147/71 02/25/20 18:00 O2 Sat by Pulse Oximetry (%) 99 02/25/20 09:00 Eyes: Yes: Other (Lt periorbital ecchymosis) Cardiovascular: Yes: WNL, Regular Rate and Rhythm Respiratory: Yes: WNL, Regular, CTA Bilaterally Gastrointestinal: Yes: WNL, Normal Bowel Sounds, Soft Labs: CBC, BMP 02/24/20 07:00 02/24/20 07:00 INR, PTT INR 0.93 (0.83-1.09) 02/23/20 13:30 Problem List - Problems (1) Subdural hemorrhage Assessment/Plan: Repeat CT scan head shows no change in SDH Cont to monitor Cont keppra Cont to hold asa/plavix DC planning for am Code(s): I62.00 - NONTRAUMATIC SUBDURAL HEMORRHAGE, UNSPECIFIED (2) CAD (coronary artery disease) Assessment/Plan: Hold asa/plavix due to SDH Code(s): I25.10 - ATHSCL HEART DISEASE OF [place] CORONARY ARTERY W/O ANG PCTRS (3) Head injury Assessment/Plan: Lt eye ecchymosis Spoke to pt and daughter at length about dc planning for am and need for pt to follow up with 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
[2020-02-25] MEDS ORDERED: ACETAMINOPHEN 325 MG TABLET (FP) PO PRN (22:47)
[2020-02-25] MEDS: ACETAMINOPHEN 325 MG TABLET (FP) PO PRN (22:52)
[2020-02-26] MEDS: metFORMIN HCL 500 MG TABLET (FP) PO SCH ×2 (06:21→16:40)
[2020-02-26] MEDS: ACETAMINOPHEN 325 MG TABLET (FP) PO PRN ×3 (06:22→20:32)
[2020-02-26] MEDS ORDERED: PT OWN MED DRAWER 7, Y5N ONE (09:00)
[2020-02-26] MEDS: levETIRAcetam 250 MG TABLET PO SCH (09:14)
[2020-02-26] MEDS: PANTOPRAZOLE 40 MG TABLET PO SCH (09:14)
[2020-02-26] MEDS: METOPROLOL TARTRATE 25 MG TABLET (FP) PO SCH ×2 (09:14→21:01)
[2020-02-26] MEDS: FENOFIBRIC ACID 135 MG CAP PO SCH (09:14)
--- NOTE | 2020-02-26 13:08 | PN ---
Progress Note, Physician History of Present Illness: stable no new issues - Current Medication List Current Medications: Active Medications Acetaminophen (Tylenol -) 650 mg PO Q6H PRN PRN Reason: PAIN LEVEL 1-5 Last Admin: 02/26/20 11:24 Dose: 650 mg Documented by: Fenofibric Acid (Trilipix -) 135 mg PO DAILY [facility] Last Admin: 02/26/20 09:14 Dose: 135 mg Documented by: Levetiracetam (Keppra -) 250 mg PO DAILY [facility] Last Admin: 02/26/20 09:14 Dose: 250 mg Documented by: Metformin HCl (Glucophage -) 1,000 mg PO BIDAC [facility] Last Admin: 02/26/20 06:21 Dose: 1,000 mg Documented by: Metoprolol Tartrate (Lopressor -) 25 mg PO BID [facility] Last Admin: 02/26/20 09:14 Dose: 25 mg Documented by: Pantoprazole Sodium (Protonix -) 40 mg PO DAILY [facility] Last Admin: 02/26/20 09:14 Dose: 40 mg Documented by: Sitagliptin Phosphate (Januvia -) 100 mg PO ACBK [facility] Last Admin: 02/26/20 06:21 Dose: 100 mg Documented by: - Objective Vital Signs: Vital Signs Temperature 98.3 F 02/26/20 08:53 Pulse Rate 78 02/26/20 08:53 Respiratory Rate 16 02/26/20 09:00 Blood Pressure 139/72 02/26/20 08:53 O2 Sat by Pulse Oximetry (%) 99 02/26/20 09:00 Constitutional: Yes: No Distress, Calm HENT: Yes: Other ([place] eye left improving head trauma) Cardiovascular: Yes: S1, S2 Respiratory: Yes: Regular, CTA Bilaterally Gastrointestinal: Yes: Normal Bowel Sounds, Soft Musculoskeletal: Yes: WNL Extremities: Yes: WNL Integumentary: Yes: Other Wound/Incision: Yes: Dressing Dry and Intact, Other Neurological: Yes: Alert, Oriented Psychiatric: Yes: Alert, Oriented Labs: CBC, BMP 02/24/20 07:00 02/24/20 07:00 INR, PTT INR 0.93 (0.83-1.09) 02/23/20 13:30 Assessment/Plan this patient with multiple medical issues coming in with laceration of the left eye and subdural hemorrhage wound looks clean at the moment i will not start any abx neurosurgery to have a look at the moment wound care close watch monitor neurological signs rest as per the team monitor wbc
--- NOTE | 2020-02-26 21:41 | PN ---
Progress Note, Physician History of Present Illness: No new complaints - Current Medication List Current Medications: Active Medications Acetaminophen (Tylenol -) 650 mg PO Q6H PRN PRN Reason: PAIN LEVEL 1-5 Last Admin: 02/26/20 20:32 Dose: 650 mg Documented by: Fenofibric Acid (Trilipix -) 135 mg PO DAILY [facility] Last Admin: 02/26/20 09:14 Dose: 135 mg Documented by: Levetiracetam (Keppra -) 250 mg PO DAILY [facility] Last Admin: 02/26/20 09:14 Dose: 250 mg Documented by: Metformin HCl (Glucophage -) 1,000 mg PO BIDAC [facility] Last Admin: 02/26/20 16:40 Dose: 1,000 mg Documented by: Metoprolol Tartrate (Lopressor -) 25 mg PO BID [facility] Last Admin: 02/26/20 21:01 Dose: 25 mg Documented by: Pantoprazole Sodium (Protonix -) 40 mg PO DAILY [facility] Last Admin: 02/26/20 09:14 Dose: 40 mg Documented by: Sitagliptin Phosphate (Januvia -) 100 mg PO ACBK [facility] Last Admin: 02/26/20 06:21 Dose: 100 mg Documented by: - Objective Vital Signs: Vital Signs Temperature 98.3 F 02/26/20 18:00 Pulse Rate 80 02/26/20 18:00 Respiratory Rate 18 02/26/20 18:00 Blood Pressure 138/61 02/26/20 18:00 O2 Sat by Pulse Oximetry (%) 99 02/26/20 21:00 Eyes: Yes: Other (Lt periorbital ecchymosis) Cardiovascular: Yes: WNL, Regular Rate and Rhythm Respiratory: Yes: WNL Gastrointestinal: Yes: WNL, Normal Bowel Sounds, Soft Extremities: Yes: WNL Neurological: Yes: WNL, Alert, Oriented Labs: CBC, BMP 02/24/20 07:00 02/24/20 07:00 INR, PTT INR 0.93 (0.83-1.09) 02/23/20 13:30 Problem List - Problems (1) Subdural hemorrhage Assessment/Plan: Repeat CT scan head shows no change in SDH Cont to monitor Cont keppra Cont to hold asa/plavix DC planning for am Code(s): I62.00 - NONTRAUMATIC SUBDURAL HEMORRHAGE, UNSPECIFIED (2) Head injury Assessment/Plan: Lt eye ecchymosis Spoke to pt and daughter at length about dc planning for am and need for pt to 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
[2020-02-27] MEDS: metFORMIN HCL 500 MG TABLET (FP) PO SCH (06:09)
[2020-02-27] MEDS ORDERED: PT OWN MED DRAWER 7, Y5N ONE (09:42)
[2020-02-27] MEDS: ACETAMINOPHEN 325 MG TABLET (FP) PO PRN (09:44)
[2020-02-27] MEDS: FENOFIBRIC ACID 135 MG CAP PO SCH (09:44)
[2020-02-27] MEDS: PANTOPRAZOLE 40 MG TABLET PO SCH (09:44)
[2020-02-27] MEDS: levETIRAcetam 250 MG TABLET PO SCH (09:44)
[2020-02-27] MEDS: METOPROLOL TARTRATE 25 MG TABLET (FP) PO SCH (09:45)
--- NOTE | 2020-02-27 10:37 | PN ---
Progress Note, Physician History of Present Illness: stable c/o of rt sided abd pain pain on the ribs lower on the rt side - Current Medication List Current Medications: Active Medications Acetaminophen (Tylenol -) 650 mg PO Q6H PRN PRN Reason: PAIN LEVEL 1-5 Last Admin: 02/27/20 09:44 Dose: 650 mg Documented by: Fenofibric Acid (Trilipix -) 135 mg PO DAILY [facility] Last Admin: 02/27/20 09:44 Dose: 135 mg Documented by: Levetiracetam (Keppra -) 250 mg PO DAILY [facility] Last Admin: 02/27/20 09:44 Dose: 250 mg Documented by: Metformin HCl (Glucophage -) 1,000 mg PO BIDAC [facility] Last Admin: 02/27/20 06:09 Dose: 1,000 mg Documented by: Metoprolol Tartrate (Lopressor -) 25 mg PO BID [facility] Last Admin: 02/27/20 09:45 Dose: 25 mg Documented by: Pantoprazole Sodium (Protonix -) 40 mg PO DAILY [facility] Last Admin: 02/27/20 09:44 Dose: 40 mg Documented by: Sitagliptin Phosphate (Januvia -) 100 mg PO ACBK [facility] Last Admin: 02/27/20 06:09 Dose: 100 mg Documented by: - Objective Vital Signs: Vital Signs Temperature 98.5 F 02/27/20 06:00 Pulse Rate 70 02/27/20 06:00 Respiratory Rate 18 02/27/20 06:00 Blood Pressure 146/65 02/27/20 06:00 O2 Sat by Pulse Oximetry (%) 99 02/26/20 21:00 Constitutional: Yes: Calm, Mild Distress Neck: Yes: Supple, Trachea Midline Cardiovascular: Yes: Regular Rate and Rhythm Respiratory: Yes: Regular, CTA Bilaterally Gastrointestinal: Yes: Normal Bowel Sounds, Soft, Tenderness (on the rt side on the lower lobes) Musculoskeletal: Yes: WNL Extremities: Yes: WNL Neurological: Yes: Alert, Oriented Psychiatric: Yes: Alert, Oriented Labs: CBC, BMP 02/24/20 07:00 02/24/20 07:00 INR, PTT INR 0.93 (0.83-1.09) 02/23/20 13:30 Assessment/Plan Problem List - Problems (1) Subdural hemorrhage Code(s): I62.00 - NONTRAUMATIC SUBDURAL HEMORRHAGE, UNSPECIFIED (2) Head injury Code(s): S09.90XA - UNSPECIFIED INJURY OF HEAD, INITIAL ENCOUNTER (3) Diabetes Code(s): E11.9 - TYPE 2 DIABETES MELLITUS WITHOUT COMPLICATIONS Qualifiers: Diabetes mellitus type: type 2 (4) HTN (hypertension) Code(s): I10 - ESSENTIAL (PRIMARY) HYPERTENSION (5) Hyperlipidemia Code(s): E78.5 - HYPERLIPIDEMIA, UNSPECIFIED (6) CAD (coronary artery disease) Code(s): I25.10 - ATHSCL HEART DISEASE OF [place] CORONARY ARTERY W/O ANG PCTRS plan continue as per neurosurgery rest as per the team
[2020-02-27 12:19] VITALS: BP 133/75; PULSE 77; TEMP 98.4
--- NOTE | 2020-02-27 12:39 | PN ---
Progress Note, Physician History of Present Illness: vents noted Chart reviewed Seen on the floor mild lightheadedness no blurry vision or double vision - Current Medication List Current Medications: Active Medications Acetaminophen (Tylenol -) 650 mg PO Q6H PRN PRN Reason: PAIN LEVEL 1-5 Last Admin: 02/27/20 09:44 Dose: 650 mg Documented by: Fenofibric Acid (Trilipix -) 135 mg PO DAILY [facility] Last Admin: 02/27/20 09:44 Dose: 135 mg Documented by: Levetiracetam (Keppra -) 250 mg PO DAILY [facility] Last Admin: 02/27/20 09:44 Dose: 250 mg Documented by: Metformin HCl (Glucophage -) 1,000 mg PO BIDAC [facility] Last Admin: 02/27/20 06:09 Dose: 1,000 mg Documented by: Metoprolol Tartrate (Lopressor -) 25 mg PO BID [facility] Last Admin: 02/27/20 09:45 Dose: 25 mg Documented by: Pantoprazole Sodium (Protonix -) 40 mg PO DAILY [facility] Last Admin: 02/27/20 09:44 Dose: 40 mg Documented by: Sitagliptin Phosphate (Januvia -) 100 mg PO ACBK [facility] Last Admin: 02/27/20 06:09 Dose: 100 mg Documented by: - Objective Vital Signs: Vital Signs Temperature 98.4 F 02/27/20 10:00 Pulse Rate 77 02/27/20 10:00 Respiratory Rate 18 02/27/20 10:00 Blood Pressure 133/75 02/27/20 10:00 O2 Sat by Pulse Oximetry (%) 99 02/27/20 09:00 Constitutional: Yes: Well Nourished Eyes: Yes: WNL HENT: Yes: WNL Neck: Yes: WNL Neurological: Yes: Alert, Oriented, Babinski positive, Cran Nerves II-XII Intact Labs: CBC, BMP 02/24/20 07:00 02/24/20 07:00 INR, PTT INR 0.93 (0.83-1.09) 02/23/20 13:30 Problem List - Problems (1) Epidural hematoma Assessment/Plan: seizure precautions. Continue Keppra for 3-6 month if there is no seizure we can stop. EEG as an outpatient. Check orthostasis every shift Code(s): S06.4X9A - EPIDURAL HEMORRHAGE W LOC OF UNSP DURATION, INIT
--- NOTE | 2020-03-05 00:39 | DS ---
Physical Examination Vital Signs: Vital Signs Temperature 98.4 F 02/27/20 10:00 Pulse Rate 77 02/27/20 10:00 Respiratory Rate 18 02/27/20 10:00 Blood Pressure 133/75 02/27/20 10:00 O2 Sat by Pulse Oximetry (%) 99 02/27/20 09:00 Labs: CBC, BMP 02/24/20 07:00 02/24/20 07:00 Discharge Summary Problems reviewed: Yes Reason For Visit: INJURY OF HEAD, FALL Hospital Course: 74 y/o F with hx of HTN, DM, CAD on ASA/Plavix, chronic left shoulder injury BIBEM with BHT and no LOC. Patient was with family going to the grocery store when she stumbled tripping on the pavement. She fell on her left side and sustained a laceration to her left brow. On arrival to the ED, patient was alert and oriented. She reports pain at the site of her wound and in her left wrist. She is unable to recall the events however family reported there was no LOC and witnessed the fall. Condition: Good - Instructions Diet, Activity, Other Instructions: 2 gram sodium diet See your government clerk Dr Medina See your primary care doctor in 1 week See your neurologist in 1 week Referrals: Bobby Hansen MD [Primary Care Provider] - Disposition: VNS/HOME HEALTH CARE - Home Medications Comprehensive Discharge Medication List: Ambulatory Orders Metoprolol Tartrate [Lopressor -] 25 mg PO BID 03/24/14 Pravastatin Sodium 25 mg PO HS 03/24/14 Dexlansoprazole [Dexilant -] 1 tab PO DAILY 12/30/17 Fenofibric Acid [Trilipix -] 135 mg PO DAILY #30 cap 02/27/20 levETIRAcetam [Keppra -] 250 mg PO DAILY #20 tablet 02/27/20
== END 2020-02-27 14:08 | disposition home health service (06) | DRG 86 ==
LOC: JER 12:07 → JERBED 19:44 → J6WEST-2 02-24 10:46 → J7W 02-24 20:36
PROVIDERS: ADMIT Internal Medicine; ATTEND Internal Medicine
PROC: 0HQ1XZZ Repair Face Skin, External Approach (ICD-10-PCS; principal; 2020-02-23)
DX: S06.5X0A Traumatic subdural hemorrhage without loss of consciousness, initial encounter (principal); E87.1 Hypo-osmolality and hyponatremia; S01.112A Laceration without foreign body of left eyelid and periocular area, initial encounter; S05.12XA Contusion of eyeball and orbital tissues, left eye, initial encounter; E11.9 Type 2 diabetes mellitus without complications; I25.10 Atherosclerotic heart disease of native coronary artery without angina pectoris; E78.5 Hyperlipidemia, unspecified; K21.9 Gastro-esophageal reflux disease without esophagitis; E78.00 Pure hypercholesterolemia, unspecified; Z96.652 Presence of left artificial knee joint; H54.40 Blindness, one eye, unspecified eye; I11.0 Hypertensive heart disease with heart failure; I50.9 Heart failure, unspecified; M54.5 Low back pain; F41.9 Anxiety disorder, unspecified; W01.0XXA Fall on same level from slipping, tripping and stumbling without subsequent striking against object, initial encounter; Y92.89 Other specified places as the place of occurrence of the external cause
CPT/HCPCS: 36415; 70450-TC; 70486-TC; 71045-TC-FY; 72125-TC; 72170-TC-FY; 73110-TC-LT-FY; 80053; 82550; 82962; 83735; 84484; 85025; 85610; 85730; 87081; 93005; 93010; 99285-25; J0131; U0003

== ENCOUNTER 2021-01-14 07:35 | Emergency (ER) | payer OTHER, MEDICARE ==
[2021-01-14 07:51] VITALS: BP 139/65; PULSE 79; TEMP 98.3; BMI 28.3
[2021-01-14] MEDS ORDERED: AMOX TR/POT CLAV 875MG/125MG TABLETS (FP) PO ONE (07:55)
[2021-01-14] MEDS ORDERED: DIPHTH,PERTUSS(ACELL),TET 0.5 ML DISP.SYRIN IM ONE ×2 (07:55→08:16)
[2021-01-14] MEDS ORDERED: AMOX TR/POT CLAV 875MG/125MG TABLETS (FP) ONE (08:16)
== END 2021-01-14 08:31 | disposition home or self-care (01) ==
LOC: JER 07:35
PROC: 3E0234Z Introduction of Serum, Toxoid and Vaccine into Muscle, Percutaneous Approach (ICD-10-PCS; principal; 2021-01-14)
DX: S50.811A Abrasion of right forearm, initial encounter (principal); E11.9 Type 2 diabetes mellitus without complications
CPT/HCPCS: 90471; 90715; 99284-25

== ENCOUNTER 2021-03-11 23:55 | Emergency (ER) | payer OTHER, MEDICARE ==
[2021-03-12 00:06] VITALS: BP 156/78; PULSE 71; TEMP 98.1; BMI 29.7
[2021-03-12] MEDS ORDERED: ACETAMINOPHEN 325 MG TABLET (FP) PO ONE (01:07)
[2021-03-12] MEDS ORDERED: ACETAMINOPHEN 325 MG TABLET (FP) ONE (01:36)
== END 2021-03-12 02:44 | disposition home or self-care (01) ==
LOC: JER 23:55
PROC: 0HQ0XZZ Repair Scalp Skin, External Approach (ICD-10-PCS; principal; 2021-03-11)
DX: S01.01XA Laceration without foreign body of scalp, initial encounter (principal)
CPT/HCPCS: 70450-TC; 72125-TC; 99284-25

== ENCOUNTER 2021-11-28 15:10 | Observation (INO) | payer MEDICARE, OTHER ==
[2021-11-28 16:13] LABS: BASO % 0.5 % (0-2.0); EOS % 2.6 % (0-4.5); HEMATOCRIT 29.6 % (32.4-45.2); HEMOGLOBIN 10.1 GM/dL (10.7-15.3); LYMPH % 12.7 % (8-40); MCH 29.6 pg (25.7-33.7); MCHC 34.1 g/dl (32.0-36.0); MEAN CELL VOLUME 87.1 fl (80-96); MEAN PLT VOLUME 6.8 fl (7.5-11.1); MONO % 8.3 % (3.8-10.2); NEUT % 75.9 % (42.8-82.8); PLATELET COUNT 466 10^3/uL (134-434); RDW 13.4 % (11.6-15.6); WHITE BLOOD COUNT 8.8 K/mm3 (4.0-10.0)
[2021-11-28 16:21] LABS: INR 0.97 (0.83-1.09); PROTHROMBIN TIME (PATIENT) 11.1 SEC (9.7-13.0)
[2021-11-28 16:24] LABS: ACTIVATED PTT 27.9 SECONDS (25.2-36.5)
[2021-11-28 16:32] LABS: CALCIUM 9.3 mg/dL (8.5-10.1)
[2021-11-28 16:33] LABS: ALBUMIN 3.8 g/dl (3.4-5.0); BLOOD UREA NITROGEN 13.7 mg/dL (7-18)
[2021-11-28 16:36] LABS: CREATININE 0.9 mg/dL (0.55-1.3)
[2021-11-28 16:38] LABS: BILIRUBIN,TOTAL 0.2 mg/dL (0.2-1); TOT PROT 6.7 g/dl (6.4-8.2)
[2021-11-28] MEDS ORDERED: SODIUM CHLORIDE 0.9% 1000 ML INFUS.BAG IV ONE (16:55)
[2021-11-28] MEDS ORDERED: ONDANSETRON 4 MG/2 ML VIAL IVPUSH ONE (18:15)
[2021-11-28] MEDS ORDERED: ONDANSETRON 4 MG/2 ML VIAL ONE (18:20)
[2021-11-29 00:57] VITALS: BMI 29.2
[2021-11-29 07:00] LABS: BASO % 0.7 % (0-2.0); EOS % 2.9 % (0-4.5); HEMATOCRIT 27.6 % (32.4-45.2); HEMOGLOBIN 9.5 GM/dL (10.7-15.3); LYMPH % 17.4 % (8-40); MCH 30.3 pg (25.7-33.7); MCHC 34.5 g/dl (32.0-36.0); MEAN CELL VOLUME 87.8 fl (80-96); MEAN PLT VOLUME 7.1 fl (7.5-11.1); MONO % 8.7 % (3.8-10.2); NEUT % 70.3 % (42.8-82.8); PLATELET COUNT 419 10^3/uL (134-434); RBC 3.15 M/mm3 (3.60-5.2); RDW 13.5 % (11.6-15.6); WHITE BLOOD COUNT 7.2 K/mm3 (4.0-10.0)
[2021-11-29 07:21] LABS: CALCIUM 8.6 mg/dL (8.5-10.1)
[2021-11-29 07:22] LABS: ALBUMIN 3.1 g/dl (3.4-5.0); BLOOD UREA NITROGEN 11.9 mg/dL (7-18)
[2021-11-29 07:25] LABS: CREATININE 0.9 mg/dL (0.55-1.3)
[2021-11-29 07:27] LABS: BILIRUBIN,TOTAL 0.3 mg/dL (0.2-1); TOT PROT 5.8 g/dl (6.4-8.2)
[2021-11-29] MEDS: HEPARIN NA (PORCINE) 5,000 UNITS/ML 1ML VIAL SQ SCH ×2 (09:58→21:39)
[2021-11-29] MEDS: levETIRAcetam 250 MG TABLET PO SCH (09:59)
[2021-11-29] MEDS: METOPROLOL TARTRATE 25 MG TABLET (FP) PO SCH ×2 (09:59→21:40)
[2021-11-29] MEDS: FENOFIBRIC ACID 135 MG CAP PO SCH (09:59)
[2021-11-29] MEDS: ATORVASTATIN CA 10 MG TABLET (FP) PO SCH (21:43)
[2021-11-29] MEDS: guaiFENesin 200 MG/10 ML 10 ML UNIT-DOSE CUPS PO ONE ×2 (23:00→23:29)
[2021-11-30] MEDS: HEPARIN NA (PORCINE) 5,000 UNITS/ML 1ML VIAL SQ SCH ×2 (09:55→22:43)
[2021-11-30] MEDS: FENOFIBRIC ACID 135 MG CAP PO SCH (09:56)
[2021-11-30] MEDS: levETIRAcetam 250 MG TABLET PO SCH (09:56)
[2021-11-30] MEDS: METOPROLOL TARTRATE 25 MG TABLET (FP) PO SCH ×2 (09:56→22:43)
[2021-11-30] MEDS: ATORVASTATIN CA 10 MG TABLET (FP) PO SCH (22:43)
[2021-12-01 10:03] VITALS: TEMP 98.1
[2021-12-01] MEDS: HEPARIN NA (PORCINE) 5,000 UNITS/ML 1ML VIAL SQ SCH (11:08)
[2021-12-01] MEDS: FENOFIBRIC ACID 135 MG CAP PO SCH (11:08)
[2021-12-01] MEDS: METOPROLOL TARTRATE 25 MG TABLET (FP) PO SCH (11:08)
[2021-12-01] MEDS: levETIRAcetam 250 MG TABLET PO SCH (11:08)
[2021-12-01 15:47] VITALS: BP 140/66; PULSE 67
== END 2021-12-01 17:07 | disposition home health service (06) ==
LOC: JER 15:10 → JERBED 18:26 → UNDOADMOB 18:26 → INTOOBSV 23:11 → OBSVTOIN 23:11 → JERBED 23:50 → J4W 23:50 → JERBED 11-29 09:50 → J4W 11-29 09:50
PROVIDERS: ADMIT Internal Medicine; ATTEND Internal Medicine
PROC: 3E023GC Introduction of Other Therapeutic Substance into Muscle, Percutaneous Approach (ICD-10-PCS; principal; 2021-11-29)
PROC: 3E033GC Introduction of Other Therapeutic Substance into Peripheral Vein, Percutaneous Approach (ICD-10-PCS; 2021-11-29)
PROC: 3E0337Z Introduction of Electrolytic and Water Balance Substance into Peripheral Vein, Percutaneous Approach (ICD-10-PCS; 2021-11-29)
DX: I25.10 Atherosclerotic heart disease of native coronary artery without angina pectoris (principal); I11.0 Hypertensive heart disease with heart failure; I50.9 Heart failure, unspecified; R11.0 Nausea; R07.89 Other chest pain; E11.9 Type 2 diabetes mellitus without complications; F03.90 Unspecified dementia, unspecified severity, without behavioral disturbance, psychotic disturbance, mood disturbance, and anxiety; Z95.5 Presence of coronary angioplasty implant and graft; D64.9 Anemia, unspecified; S06.9X0A Unspecified intracranial injury without loss of consciousness, initial encounter; X58.XXXA Exposure to other specified factors, initial encounter; Y93.89 Activity, other specified; Y92.89 Other specified places as the place of occurrence of the external cause; K21.9 Gastro-esophageal reflux disease without esophagitis; G89.29 Other chronic pain; R10.30 Lower abdominal pain, unspecified; F41.9 Anxiety disorder, unspecified; K29.70 Gastritis, unspecified, without bleeding; Z87.891 Personal history of nicotine dependence; Z98.49 Cataract extraction status, unspecified eye; R01.1 Cardiac murmur, unspecified; M62.81 Muscle weakness (generalized); R55 Syncope and collapse; E78.5 Hyperlipidemia, unspecified; Z88.8 Allergy status to other drugs, medicaments and biological substances
CPT/HCPCS: 36415; 70450-TC; 70498-TC; 71046-TC-FY; 72125-TC; 80053; 80061; 83036; 83735; 84443; 84484; 85025; 85610; 85730; 93005; 93010; 93306-TC; 93880-TC; 96372; 96374; 97116-GP; 97161-GP; 99285-25; C9803-CS; G0378; J1644; U0003; U0005